=== PATIENT | female | born 1980 | race Caucasian/White ===

== ENCOUNTER → 2020-07-26 08:26 | Outpatient (CLI) | payer BC, SELFPAY ==
--- NOTE | 2020-07-26 | DI.MG.S_ITS ---
BILATERAL DIGITAL DIAGNOSTIC MAMMOGRAM 3D/2D: 07/26/2020 CLINICAL: Left breast pain. Comparison is made to exam dated: 02/17/2015 mammogram - [facility]. There are scattered fibroglandular elements in both breasts. There is a benign intramammary node in the left breast. No significant masses, calcifications, or other findings are seen in either breast. There has been no significant interval change. IMPRESSION: BENIGN There is no mammographic evidence of malignancy. A 2 year screening mammogram is recommended. This exam was interpreted at Station ID: [id number]. NOTE: For mammograms, a report in lay terms will be sent to the patient. Approximately 15% of breast malignancies will not be visualized mammographically. In the management of a palpable breast mass, a negative mammogram must not discourage biopsy of a clinically suspicious lesion. Electronically Signed By: Nahun Simon M.D., jr/nina:07/26/2020 09:34:15 letter sent: Normal Exam ACR BI-RADS Category 2: Benign Finding(s) 3342F
== END ==
PROVIDERS: PCP Family Medicine; Referring Provider Family Medicine; Visit Provider Family Medicine
DX: N64.4 Mastodynia (principal)
CPT/HCPCS: 77066; G0279

== ENCOUNTER 2021-03-30 12:45 | Outpatient (RCR) | payer BC, SELFPAY ==
--- NOTE | 2021-01-19 12:28 | PT.OIE ---
Current Diagnoses Stiffness of unspecified hip, not elsewhere classified (01/19/21) Muscle weakness (generalized) (01/19/21) Cystocele, unspecified (01/19/21) Female genital prolapse, unspecified (01/19/21) Unspecified urinary incontinence (01/19/21) Visit Care Team Role Provider Type Guanaco Chauhan MD Family Provider Non-Staff Primary Care Provider Specialty: Medical Address: [address] [place] [address], [id number] Email: Rianna Tam MD Attending Provider Physician Referring Provider Specialty: SENIOR OFFICE ASSISTANT Address: [address] [place] [address], [id number] Email: [email or web address] Physical Therapy Initial Evaluation PT-OP-A Visit Information Start: 01/11/21 17:54 Freq: Status: Active Protocol: Document 01/19/21 09:54 LRN (Rec: 01/19/21 11:00 LRN [id number]) Out-Patient Physical Therapy Visit Information Visit Information Visit Type Initial Evaluation Visit Start Time 09:54 Visit Stop Time 10:49 Total Visit Minutes 55 Visit Number 1 Evaluation Information Evaluation Date 01/19/21 Precautions Precautions Controlled HBP. 5'220#, BMI 36.6 (Obesity = BMI >29) Cough hypersensitivity disorder. PT-OP-B Current Condition Start: 01/11/21 17:54 Freq: Status: Active Protocol: Document 01/19/21 09:54 LRN (Rec: 01/19/21 11:00 LRN [id number]) Current Condition History of Current Condition Onset Date 9 yrs ago, referred to PT [address] Tam Current Complaints Urinary leakage History of Current Condition Pt having urinary leakage that worsens when her period starts, but she is on control medications and is no longer having periods; therefore leakage has normalized. If urinates, then can run immediately after for 10-15', but hasn't ran in 9 yrs. Walks now without leakage unless pulling dog back. Works at [employer]. If did everything she wanted to do, states she would leak probably 3-4x/day ( like run upstairs, play with daughter). Prior Treatments and Tests None. Developmental History Developmental History Pt has urinary leakage with coughing, lifting, strenuous activity, exercise (running, tennis, soccer, hasn't done in 9 yrs). Treatment Goals Patient/Caregiver Goals Pt goal with therapy is to be activity to play sport with her 9 yr old daughter (tennis, soccer). Reduce urinary leaking to less than a couple times a week due to cough hypersensitivity disorder. Eliminate urinary leakage due to dog pulling her at work, lifting dog into vehicle. 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 Baseline Function- Other Controlled HBP. 5#, BMI is 36.6 Leaked with coughing since of her daughter 9 yrs ago. 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 Functional Limitations- Recreation/ Strenuous activity (sports Hobbies with daughter) Personal Factors Other Personal Factors That May Effect . Leaked with coughing Therapy/Recovery since daughter's childbirth 9 yrs ago. 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 Leaked with coughing since of her daughter 9 yrs ago. Cough hypersensitivity disorder. BMI is 36.6 (>30, Obese) PT-OP-C Subjective Start: 01/11/21 17:54 Freq: Status: Active Protocol: Document 01/19/21 09:54 LRN (Rec: 01/22/21 09:58 LRN [id number]) Patient Questionnaires Pelvic Pain and Urgency/Frequency Patient Symptom Scale Pelvic Pain Score 14 PT-OP-I Pelvic Floor Start: 01/11/21 17:54 Freq: Status: Active Protocol: Document 01/19/21 09:54 LRN (Rec: 01/19/21 11:00 LRN [id number]) Pelvic Floor Assessment Urine Leakage Size Small Leakage Cause Cough,Exercise,Lifting Leaks Per Day 0-1 Nocturia 2 Pelvic Clock Pelvic Clock 12-3 Atrophy Pelvic Clock 3-6 Atrophy Prolapse Cystocele Grade 3 Urethrocele Grade 2 Rectocele Grade 2 Perineal Descent Resting Present Bearing Present Contraction Ability Voluntary Contraction Moderate Voluntary Relaxation Moderate Manual Muscle Testing Left 1 Manual Muscle Testing Right 3 Manual Muscle Testing Anterior 1 Manual Muscle Testing Posterior 3 Muscle Endurance (Seconds) 8 Number of Quick Contractions In 10 0 Seconds Comments Pelvic Floor Comments Sutured Pelvic floor for 15' after vaginal because she had bleeding. Thinks she was sewn crooked because she feels she has a dog ear. PT-OP-J Posture/Palpation/Skin Start: 01/11/21 17:54 Freq: Status: Active Protocol: Document 01/19/21 09:54 LRN (Rec: 01/19/21 11:00 LRN [id number]) Posture Evaluation Position Standing T-Spine Posture Flattened L-Spine Posture Increased Lordosis Scapula Posture (R) Elevated Arm Posture (L) Internally Rotated,(R) Internally Rotated Knee Posture (L) Genu Valgus,(R) Genu Valgus Comments Posture Comments BMI 36.6 PT-OP-K Range of Motion Start: 01/11/21 17:54 Freq: Status: Active Protocol: Document 01/19/21 09:54 LRN (Rec: 01/19/21 11:00 LRN [id number]) Lumbar Spine Range of Motion Lumbar Spine Active Percentage Testing Position Standing Comments Normal trunk mobility Hip Goniometric Range of Motion Hip Right Passive Testing Position Supine Internal Rotation 25 External Rotation 85 Left Passive Testing Position Supine Internal Rotation 10 External Rotation 90 PT-OP-M Strength Start: 01/11/21 17:54 Freq: Status: Active Protocol: Document 01/19/21 09:54 LRN (Rec: 01/19/21 11:00 LRN [id number]) Trunk Strength Trunk Manual Muscle Testing Core Stabilization Loss of core control with MMT of R hip flexor & arben hip AB & Ext (pelvis R rotates) Hip Strength Hip Manual Muscle Testing Right Comments Generally 5/5 Left Comments Generally 5/5 PT-OP-Q Treatments Start: 01/11/21 17:54 Freq: Status: Active Protocol: Document 01/19/21 09:54 LRN (Rec: 01/19/21 11:00 LRN [id number]) Self-Care/Home Management Treatment Education Patient Education Home Exercise Program Other Education Discussed evaluation results, goals & Plan of care. Activities Self-Care/Home Management Activities Issued & reviewed Bladder Diary to be completed over 1 week. Issued & reviewed Kegel exer program of Quick Flicks and long holds. PT-OP-T Assessment and Plan Start: 01/11/21 17:54 Freq: Status: Active Protocol: Document 01/19/21 09:54 LRN (Rec: 01/19/21 11:00 LRN [id number]) Physical Therapy Assessment Rehab Potential Rehabilitation Potential Good Evaluation Complexity Number of Personal Factors/Comorbidities 1-2 Number of Body Systems Impaired 4 or More Clinical Presentation at Evaluation Stable Impairments Impairments Activity Tolerance,ROM,Soft Tissue Mobility,Strength, Transfers Other Impairments Urinary stress incontinence. 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 STG Duration 02/09/21 Filter Tank Tender Helper Head Goal (LTG) No leakage with sudden movements in squatting position when moving dog patients. LTG Duration 04/19/21 Three Impairment Urinary leakage with lifting. Short Term Goal (STG) Increase PF strength of anterior and L wall to 3/5. STG Duration 02/23/21 Filter Tank Tender Helper Head Goal (LTG) Improve Long hold PF strength to 10 secs hold or no leakage with lifting of dogs into car. LTG Duration 04/19/21 Two Impairment Urinary leakage with coughing Short Term Goal (STG) Improve Quick Flick PF strength to 5x before fatigue STG Duration 02/23/21 Usp Goal (LTG) Improve Quick Flick PF strength (>5x before fatigue) or no leakage with controlled cough. LTG Duration 04/19/21 One Impairment HEP Short Term Goal (STG) Pt will be educated in proper abdominal care of Rectus abdominis and proper Kegel exercise. STG Duration 02/02/21 Filter Tank Tender Helper Head Goal (LTG) Pt independent in a self care HEP of PF and core strengthening and hip ROM exercises. LTG Duration 04/19/21 Assessment Summary Assessment Pt is a 40 yo female with urinary stress incontinence for the past 9 yrs since having her daughter via vaginal . The pt presents with a grade 3 cystocele & grade 2 rectocele. Her urinary stress incontinence has been exacerbated by her cough hypersensitivity disorder. She has PF weakness in her anterior and L lateral wall. She has core weakness exacerbated by her diastasis recti. Her hip mobility is asymmetrical, hindering her pelvic stability. Pt will benefit from skilled PT for education, core & pelvic stabilization, proper breathing techniques & body mechanics training for lifting & transfers, PF STM, hip ROM & education for diastasis recti care. Physical Therapy Plan Frequency and Duration Frequency of Treatment 1x/Week Plan of Care Start Date 01/19/21 Plan of Care End Date 04/19/21 Therapeutic Interventions Therapeutic Interventions Home Exercise Program,Manual Therapy,Patient/Caregiver Education,Self-Care/Home Management,Soft Tissue Mobilization,Therapeutic Activities,Therapeutic Exercises Modalities Biofeedback,Cold Pack/Ice Massage,Electric Stimulation, Hot Packs Next Visit Focus/Plan Next Note Type Treatment Note Next Visit Plan Stress Urinary Incontinence and DR/PF rehabilitation 9 yrs post vaginal . Review bladder diary to assess when pt leaking and for fluid dynamics and review Kegel. Deep breathing and w/transfer training, Core strengthening, TA ex's and DR protection. R hip ER/L hip IR stretching.
--- NOTE | 2021-01-19 12:29 | PT.OPPOC ---
Physical, Occupational & Speech Therapy At [facility] Current Diagnoses Stiffness of unspecified hip, not elsewhere classified (01/19/21) Muscle weakness (generalized) (01/19/21) Cystocele, unspecified (01/19/21) Female genital prolapse, unspecified (01/19/21) Unspecified urinary incontinence (01/19/21) Visit Care Team Role Provider Type Guanaco Chauhan MD Family Provider Non-Staff Primary Care Provider Specialty: Medical Address: [address] [place] [address], [id number] Email: Rianna Tam MD Attending Provider Physician Referring Provider Specialty: HEEL FORMER Address: [address] [place] [address], [address] Email: [email or web address] Plan Of Care PT-OP-T Assessment and Plan Start: 01/11/21 17:54 Freq: Status: Active Protocol: Document 01/19/21 09:54 LRN (Rec: 01/19/21 11:00 LRN [id number]) Physical Therapy Assessment Rehab Potential Rehabilitation Potential Good Evaluation Complexity Number of Personal Factors/Comorbidities 1-2 Number of Body Systems Impaired 4 or More Clinical Presentation at Evaluation Stable Impairments Impairments Activity Tolerance,ROM,Soft Tissue Mobility,Strength, Transfers Other Impairments Urinary stress incontinence. 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 STG Duration 02/09/21 Skilled Nursing Goal (LTG) No leakage with sudden movements in squatting position when moving dog patients. LTG Duration 04/19/21 Three Impairment Urinary leakage with lifting. Short Term Goal (STG) Increase PF strength of anterior and L wall to 3/5. STG Duration 02/23/21 Claim Taker Goal (LTG) Improve Long hold PF strength to 10 secs hold or no leakage with lifting of dogs into car. LTG Duration 04/19/21 Two Impairment Urinary leakage with coughing Short Term Goal (STG) Improve Quick Flick PF strength to 5x before fatigue STG Duration 02/23/21 Skilled Nursing Goal (LTG) Improve Quick Flick PF strength (>5x before fatigue) or no leakage with controlled cough. LTG Duration 04/19/21 One Impairment HEP Short Term Goal (STG) Pt will be educated in proper abdominal care of Rectus abdominis and proper Kegel exercise. STG Duration 02/02/21 Skilled Nursing Goal (LTG) Pt independent in a self care HEP of PF and core strengthening and hip ROM exercises. LTG Duration 04/19/21 Assessment Summary Assessment Pt is a 40 yo female with urinary stress incontinence for the past 9 yrs since having her daughter via vaginal . The pt presents with a grade 3 cystocele & grade 2 rectocele. Her urinary stress incontinence has been exacerbated by her cough hypersensitivity disorder. She has PF weakness in her anterior and L lateral wall. She has core weakness exacerbated by her diastasis recti. Her hip mobility is asymmetrical, hindering her pelvic stability. Pt will benefit from skilled PT for education, core & pelvic stabilization, proper breathing techniques & body mechanics training for lifting & transfers, PF STM, hip ROM & education for diastasis recti care. Physical Therapy Plan Frequency and Duration Frequency of Treatment 1x/Week Plan of Care Start Date 01/19/21 Plan of Care End Date 04/19/21 Therapeutic Interventions Therapeutic Interventions Home Exercise Program,Manual Therapy,Patient/Caregiver Education,Self-Care/Home Management,Soft Tissue Mobilization,Therapeutic Activities,Therapeutic Exercises Modalities Biofeedback,Cold Pack/Ice Massage,Electric Stimulation, Hot Packs Next Visit Focus/Plan Next Note Type Treatment Note Next Visit Plan Stress Urinary Incontinence and DR/PF rehabilitation 9 yrs post vaginal . Review bladder diary to assess when pt leaking and for fluid dynamics and review Kegel. Deep breathing and w/transfer training, Core strengthening, TA ex's and DR protection. R hip ER/L hip IR stretching. Plan of Care Dates Plan of Care Start Date 01/19/21 Plan of Care End Date 04/19/21 Electronically Signed by: Pushpa Kay, PT 01/22/21 [id number] Please Sign and Return: I have reviewed this Plan of Care and certify that the skilled therapy services above are required to meet the patient?s needs. Physician Signature Date Printed Name and Credentials Clinical Instructor Signature Printed Name and Credentials
--- NOTE | 2021-02-02 16:53 | PT.OTN ---
Current Diagnoses Stiffness of unspecified hip, not elsewhere classified (02/02/21) Muscle weakness (generalized) (02/02/21) Cystocele, unspecified (02/02/21) Female genital prolapse, unspecified (02/02/21) Unspecified urinary incontinence (02/02/21) Physical Therapy Treatment Note PT-OP-A Visit Information Start: 01/11/21 17:54 Freq: Status: Active Protocol: Document 02/02/21 10:36 LRN (Rec: 02/02/21 12:27 LRN [id number]) Out-Patient Physical Therapy Visit Information Visit Information Visit Type Treatment Note Visit Start Time 10:36 Visit Stop Time 11:16 Total Visit Minutes 40 Visit Number 2 Evaluation Information Evaluation Date 01/19/21 Precautions Precautions Controlled HBP. 5'220#, BMI 36.6 (Obesity = BMI >29) Cough hypersensitivity disorder. PT-OP-B Current Condition Start: 01/11/21 17:54 Freq: Status: Active Protocol: Document 01/19/21 09:54 LRN (Rec: 01/19/21 11:00 LRN [id number]) Current Condition History of Current Condition Onset Date 9 yrs ago, referred to PT [address] Tam Current Complaints Urinary leakage History of Current Condition Pt having urinary leakage that worsens when her period starts, but she is on control medications and is no longer having periods; therefore leakage has normalized. If urinates, then can run immediately after for 10-15', but hasn't ran in 9 yrs. Walks now without leakage unless pulling dog back. Works at [employer]. If did everything she wanted to do, states she would leak probably 3-4x/day ( like run upstairs, play with daughter). Prior Treatments and Tests None. Developmental History Developmental History Pt has urinary leakage with coughing, lifting, strenuous activity, exercise (running, tennis, soccer, hasn't done in 9 yrs). Treatment Goals Patient/Caregiver Goals Pt goal with therapy is to be activity to play sport with her 9 yr old daughter (tennis, soccer). Reduce urinary leaking to less than a couple times a week due to cough hypersensitivity disorder. Eliminate urinary leakage due to dog pulling her at work, lifting dog into vehicle. 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 Baseline Function- Other Controlled HBP. 5'#, BMI is 36.6 Leaked with coughing since of her daughter 9 yrs ago. 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 Functional Limitations- Recreation/ Strenuous activity (sports Hobbies with daughter) Personal Factors Other Personal Factors That May Effect . Leaked with coughing Therapy/Recovery since daughter's childbirth 9 yrs ago. 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 Leaked with coughing since of her daughter 9 yrs ago. Cough hypersensitivity disorder. BMI is 36.6 (>30, Obese) PT-OP-C Subjective Start: 01/11/21 17:54 Freq: Status: Active Protocol: Document 02/02/21 10:36 LRN (Rec: 02/02/21 12:27 LRN [id number]) OP-PT Subjective Patient Comments Patient Comments Forgot bladder diary. States she urinates for most of the time 7 secs, 6x/day on avg (3x at work = every 3 hrs, 2x at home and before bed). Thinks drinks 64 oz at work ( urinating 3x), Pees more after drinking Coke. Urinates more if anxious or when on period. Weighs #220. PT-OP-I Pelvic Floor Start: 01/11/21 17:54 Freq: Status: Active Protocol: Document 01/19/21 09:54 LRN (Rec: 01/19/21 11:00 LRN [id number]) Pelvic Floor Assessment Urine Leakage Size Small Leakage Cause Cough,Exercise,Lifting Leaks Per Day 0-1 Nocturia 2 Pelvic Clock Pelvic Clock 12-3 Atrophy Pelvic Clock 3-6 Atrophy Prolapse Cystocele Grade 3 Urethrocele Grade 2 Rectocele Grade 2 Perineal Descent Resting Present Bearing Present Contraction Ability Voluntary Contraction Moderate Voluntary Relaxation Moderate Manual Muscle Testing Left 1 Manual Muscle Testing Right 3 Manual Muscle Testing Anterior 1 Manual Muscle Testing Posterior 3 Muscle Endurance (Seconds) 8 Number of Quick Contractions In 10 0 Seconds Comments Pelvic Floor Comments Sutured Pelvic floor for 15' after vaginal because she had bleeding. Thinks she was sewn crooked because she feels she has a dog ear. PT-OP-J Posture/Palpation/Skin Start: 01/11/21 17:54 Freq: Status: Active Protocol: Document 01/19/21 09:54 LRN (Rec: 01/19/21 11:00 LRN [id number]) Posture Evaluation Position Standing T-Spine Posture Flattened L-Spine Posture Increased Lordosis Scapula Posture (R) Elevated Arm Posture (L) Internally Rotated,(R) Internally Rotated Knee Posture (L) Genu Valgus,(R) Genu Valgus Comments Posture Comments BMI 36.6 PT-OP-K Range of Motion Start: 01/11/21 17:54 Freq: Status: Active Protocol: Document 01/19/21 09:54 LRN (Rec: 01/19/21 11:00 LRN [id number]) Lumbar Spine Range of Motion Lumbar Spine Active Percentage Testing Position Standing Comments Normal trunk mobility Hip Goniometric Range of Motion Hip Right Passive Testing Position Supine Internal Rotation 25 External Rotation 85 Left Passive Testing Position Supine Internal Rotation 10 External Rotation 90 PT-OP-M Strength Start: 01/11/21 17:54 Freq: Status: Active Protocol: Document 01/19/21 09:54 LRN (Rec: 01/19/21 11:00 LRN [id number]) Trunk Strength Trunk Manual Muscle Testing Core Stabilization Loss of core control with MMT of R hip flexor & arben hip AB & Ext (pelvis R rotates) Hip Strength Hip Manual Muscle Testing Right Comments Generally 5/5 Left Comments Generally 5/5 PT-OP-Q Treatments Start: 01/11/21 17:54 Freq: Status: Active Protocol: Document 02/02/21 10:36 LRN (Rec: 02/02/21 12:27 LRN [id number]) Therapeutic Exercises Supine Exercises TA tightening Supine Exercise Name TA tightening Reps/Minutes 10' Breathing with TA tight Supine Exercise Name Awareness training of breathing with TA tightening Reps/Minutes 6' Deep Breathing Supine Exercise Name Deep Breathing Reps/Minutes 3' Self-Care/Home Management Treatment Education Patient Education Body Mechanics,Home Exercise Program,Posture Other Education Reviewed and discussed at length pt's recall of her bladder diary results. Discussed Food & Beverage Bladder Irritants, with suggestions of drinks with less caffeine and differences in teas. Educated pt in pelvic anatomy with model and handout. Educated pt in effects of deep breathing and effects on bladder with different arm positions. Activities Self-Care/Home Management Activities Issued (& reviewed as above): Bladder Irritant list, pelvic anatomy, diaphragmatic breathing, abdominal tightening per lower abdominal progression. 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 STG Duration 02/09/21 Veneer Jointer Offbearer Goal (LTG) No leakage with sudden movements in squatting position when moving dog patients. LTG Duration 04/19/21 Three Impairment Urinary leakage with lifting. Short Term Goal (STG) Increase PF strength of anterior and L wall to 3/5. STG Duration 02/23/21 Alf Goal (LTG) Improve Long hold PF strength to 10 secs hold or no leakage with lifting of dogs into car. LTG Duration 04/19/21 Two Impairment Urinary leakage with coughing Short Term Goal (STG) Improve Quick Flick PF strength to 5x before fatigue STG Duration 02/23/21 Veneer Jointer Offbearer Goal (LTG) Improve Quick Flick PF strength (>5x before fatigue) or no leakage with controlled cough. LTG Duration 04/19/21 One Impairment HEP Short Term Goal (STG) Pt will be educated in proper abdominal care of Rectus abdominis and proper Kegel exercise. STG Duration 02/02/21 Alf Goal (LTG) Pt independent in a self care HEP of PF and core strengthening and hip ROM exercises. LTG Duration 04/19/21 (02/02/21: Progressed) Progress Towards Goals Progress Comments Progressed HEP Assessment Summary Assessment Per pt description, she leaks with aggravator action vs just crossing her legs to prevent leakage; therefore probably having PF contraction coordination problem. Pt has poor TA control and is unable to maintain core stability ( TA contraction) while breathing. Pt urination times appear normal (7-8 secs), her time between voids is in normal range (every 3 hours), except after drinking Coke. Pt primary problem appears to be weakness and prolapse with stress urinary incontinence. Physical Therapy Plan Frequency and Duration Frequency of Treatment 1x/Week Plan of Care Start Date 01/19/21 Plan of Care End Date 04/19/21 Next Visit Focus/Plan Next Note Type Treatment Note Next Visit Plan Stress Urinary Incontinence and DR/PF rehabilitation 9 yrs post vaginal . Review Kegel & TA awareness. K-tape of DR and teach DR protection with transfers. Deep breathing w/transfer training , Core, PF & TA strengthening, & DR protection. R hip ER/L hip IR stretching.
--- NOTE | 2021-02-09 16:46 | PT.OTN ---
Current Diagnoses Stiffness of unspecified hip, not elsewhere classified (02/09/21) Muscle weakness (generalized) (02/09/21) Cystocele, unspecified (02/09/21) Female genital prolapse, unspecified (02/09/21) Unspecified urinary incontinence (02/09/21) Physical Therapy Treatment Note PT-OP-A Visit Information Start: 01/11/21 17:54 Freq: Status: Active Protocol: Document 02/09/21 10:41 LRN (Rec: 02/09/21 11:19 LRN [id number]) Out-Patient Physical Therapy Visit Information Visit Information Visit Type Treatment Note Visit Start Time 10:41 Visit Stop Time 11:19 Total Visit Minutes 39 Visit Number 3 Evaluation Information Evaluation Date 01/19/21 Precautions Precautions Controlled HBP. 5'#, BMI 36.6 (Obesity = BMI >29) Cough hypersensitivity disorder. PT-OP-B Current Condition Start: 01/11/21 17:54 Freq: Status: Active Protocol: Document 01/19/21 09:54 LRN (Rec: 01/19/21 11:00 LRN [id number]) Current Condition History of Current Condition Onset Date 9 yrs ago, referred to PT [address] Tam Current Complaints Urinary leakage History of Current Condition Pt having urinary leakage that worsens when her period starts, but she is on control medications and is no longer having periods; therefore leakage has normalized. If urinates, then can run immediately after for 10-15', but hasn't ran in 9 yrs. Walks now without leakage unless pulling dog back. Works at [employer]. If did everything she wanted to do, states she would leak probably 3-4x/day ( like run upstairs, play with daughter). Prior Treatments and Tests None. Developmental History Developmental History Pt has urinary leakage with coughing, lifting, strenuous activity, exercise (running, tennis, soccer, hasn't done in 9 yrs). Treatment Goals Patient/Caregiver Goals Pt goal with therapy is to be activity to play sport with her 9 yr old daughter (tennis, soccer). Reduce urinary leaking to less than a couple times a week due to cough hypersensitivity disorder. Eliminate urinary leakage due to dog pulling her at work, lifting dog into vehicle. 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 Baseline Function- Other Controlled HBP. #, BMI is 36.6 Leaked with coughing since of her daughter 9 yrs ago. 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 Functional Limitations- Recreation/ Strenuous activity (sports Hobbies with daughter) Personal Factors Other Personal Factors That May Effect . Leaked with coughing Therapy/Recovery since daughter's childbirth 9 yrs ago. 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 Leaked with coughing since of her daughter 9 yrs ago. Cough hypersensitivity disorder. BMI is 36.6 (>30, Obese) PT-OP-C Subjective Start: 01/11/21 17:54 Freq: Status: Active Protocol: Document 02/09/21 10:41 LRN (Rec: 02/09/21 11:19 LRN [id number]) OP-PT Subjective Patient Comments Patient Comments States she had an episode a few days ago when she straddled a dog and did not leak, but yesterday she was doing something and leaked. Yesterday was low on water consumption. This morning walking downhill leaked less because she was aggravator lily. PT-OP-I Pelvic Floor Start: 01/11/21 17:54 Freq: Status: Active Protocol: Document 01/19/21 09:54 LRN (Rec: 01/19/21 11:00 LRN [id number]) Pelvic Floor Assessment Urine Leakage Size Small Leakage Cause Cough,Exercise,Lifting Leaks Per Day 0-1 Nocturia 2 Pelvic Clock Pelvic Clock 12-3 Atrophy Pelvic Clock 3-6 Atrophy Prolapse Cystocele Grade 3 Urethrocele Grade 2 Rectocele Grade 2 Perineal Descent Resting Present Bearing Present Contraction Ability Voluntary Contraction Moderate Voluntary Relaxation Moderate Manual Muscle Testing Left 1 Manual Muscle Testing Right 3 Manual Muscle Testing Anterior 1 Manual Muscle Testing Posterior 3 Muscle Endurance (Seconds) 8 Number of Quick Contractions In 10 0 Seconds Comments Pelvic Floor Comments Sutured Pelvic floor for 15' after vaginal because she had bleeding. Thinks she was sewn crooked because she feels she has a dog ear. PT-OP-J Posture/Palpation/Skin Start: 01/11/21 17:54 Freq: Status: Active Protocol: Document 01/19/21 09:54 LRN (Rec: 01/19/21 11:00 LRN [id number]) Posture Evaluation Position Standing T-Spine Posture Flattened L-Spine Posture Increased Lordosis Scapula Posture (R) Elevated Arm Posture (L) Internally Rotated,(R) Internally Rotated Knee Posture (L) Genu Valgus,(R) Genu Valgus Comments Posture Comments BMI 36.6 PT-OP-K Range of Motion Start: 01/11/21 17:54 Freq: Status: Active Protocol: Document 01/19/21 09:54 LRN (Rec: 01/19/21 11:00 LRN [id number]) Lumbar Spine Range of Motion Lumbar Spine Active Percentage Testing Position Standing Comments Normal trunk mobility Hip Goniometric Range of Motion Hip Right Passive Testing Position Supine Internal Rotation 25 External Rotation 85 Left Passive Testing Position Supine Internal Rotation 10 External Rotation 90 PT-OP-M Strength Start: 01/11/21 17:54 Freq: Status: Active Protocol: Document 01/19/21 09:54 LRN (Rec: 01/19/21 11:00 LRN [id number]) Trunk Strength Trunk Manual Muscle Testing Core Stabilization Loss of core control with MMT of R hip flexor & arben hip AB & Ext (pelvis R rotates) Hip Strength Hip Manual Muscle Testing Right Comments Generally 5/5 Left Comments Generally 5/5 PT-OP-Q Treatments Start: 01/11/21 17:54 Freq: Status: Active Protocol: Document 02/09/21 10:41 LRN (Rec: 02/09/21 11:19 LRN [id number]) Therapeutic Exercises Supine Exercises LE Roll in/out Supine Exercise Name LE Roll in/out w/deep breathing and I/S in PF contraction Reps/Minutes 6' Upper thoracic TA Supine Exercise Name Upper TA Reps/Minutes 5' TA tightening Supine Exercise Name TA tightening lower Reps/Minutes 3' Therapeutic Activity Therapeutic Activity Transfers w/coordinated breathing Name Stand<>Sit<>Supine with coordinated breathing Reps/Minutes 8' Manual Therapy Treatment Soft Tissue Mobilization Abdomen Body Location Abdomen Mobilization Type Other Comments Mobilization of rectus, urachus, bladder Self-Care/Home Management Treatment Activities Self-Care/Home Management Activities Pt I/S: TA with focus on improving upper TA and hold time of lower TA; coordinated breathwork for transfers and LE roll in/outs, and Cont Kegels. Issued & reviewed LE Roll in/ outs without TB/Ball. 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 STG Duration 02/09/21 Detail Technician Goal (LTG) No leakage with sudden movements in squatting position when moving dog patients. (02/09/21: Occurred x 1) LTG Duration 04/19/21 (02/09/21: Progressing) Three Impairment Urinary leakage with lifting. Short Term Goal (STG) Increase PF strength of anterior and L wall to 3/5. STG Duration 02/23/21 Jail Goal (LTG) Improve Long hold PF strength to 10 secs hold or no leakage with lifting of dogs into car. LTG Duration 04/19/21 Two Impairment Urinary leakage with coughing Short Term Goal (STG) Improve Quick Flick PF strength to 5x before fatigue STG Duration 02/23/21 Jail Goal (LTG) Improve Quick Flick PF strength (>5x before fatigue) or no leakage with controlled cough. LTG Duration 04/19/21 One Impairment HEP Short Term Goal (STG) Pt will be educated in proper abdominal care of Rectus abdominis and proper Kegel exercise. (02/09/21: Educated pt in care of DR) STG Duration 02/02/21 (02/09/21: Progressed ) Detail Technician Goal (LTG) Pt independent in a self care HEP of PF and core strengthening and hip ROM exercises. (02/09/21: Added LE roll in/ out ex) LTG Duration 04/19/21 (02/09/21: Progressed) Progress Towards Goals Progress Comments Progressed self care program Goal #1. Progressing LTG #4. Assessment Summary Assessment Pt DR in upper thoracic region . Pt able to perform a TA contraction in upper thoracic region breath holding. Improved ability to hold TA during a couple shallow breaths. Pt appears to have a good understanding of proper breath with transfers, but review needed. Still normal urination times (7-8 secs) and time between voids (every 3 hours). Pt with PF weakness and prolapse with stress urinary incontinence. Pt responds well to manual mobilization. Physical Therapy Plan Frequency and Duration Frequency of Treatment 1x/Week Plan of Care Start Date 01/19/21 Plan of Care End Date 04/19/21 Next Visit Focus/Plan Next Note Type Treatment Note Next Visit Plan Stress Urinary Incontinence and DR/PF rehabilitation 9 yrs post vaginal . Review Kegel & TA awareness. Try K- tape of DR to facilitate TA tightening. Review coordination of breathing with transfers. Core, PF & TA strengthening, & monitor for DR protection. R hip ER/L hip IR stretching.
--- NOTE | 2021-02-12 11:32 | PT-OP ANOTE ---
Pt DNS. Msg left notifying pt and informing her of her next appt.
--- NOTE | 2021-02-23 11:43 | PT.OTN ---
Current Diagnoses Stiffness of unspecified hip, not elsewhere classified (02/23/21) Muscle weakness (generalized) (02/23/21) Cystocele, unspecified (02/23/21) Female genital prolapse, unspecified (02/23/21) Unspecified urinary incontinence (02/23/21) Physical Therapy Treatment Note PT-OP-A Visit Information Start: 01/11/21 17:54 Freq: Status: Active Protocol: Document 02/23/21 10:36 LRN (Rec: 02/23/21 11:42 LRN [id number]) Out-Patient Physical Therapy Visit Information Visit Information Visit Type Treatment Note Visit Start Time 10:37 Visit Stop Time 11:17 Total Visit Minutes 40 Visit Number 4 Evaluation Information Evaluation Date 01/19/21 Precautions Precautions Controlled HBP. 5'#, BMI 36.6 (Obesity = BMI >29) Cough hypersensitivity disorder. PT-OP-B Current Condition Start: 01/11/21 17:54 Freq: Status: Active Protocol: Document 01/19/21 09:54 LRN (Rec: 01/19/21 11:00 LRN [id number]) Current Condition History of Current Condition Onset Date 9 yrs ago, referred to PT [address] Tam Current Complaints Urinary leakage History of Current Condition Pt having urinary leakage that worsens when her period starts, but she is on control medications and is no longer having periods; therefore leakage has normalized. If urinates, then can run immediately after for 10-15', but hasn't ran in 9 yrs. Walks now without leakage unless pulling dog back. Works at [employer]. If did everything she wanted to do, states she would leak probably 3-4x/day ( like run upstairs, play with daughter). Prior Treatments and Tests None. Developmental History Developmental History Pt has urinary leakage with coughing, lifting, strenuous activity, exercise (running, tennis, soccer, hasn't done in 9 yrs). Treatment Goals Patient/Caregiver Goals Pt goal with therapy is to be activity to play sport with her 9 yr old daughter (tennis, soccer). Reduce urinary leaking to less than a couple times a week due to cough hypersensitivity disorder. Eliminate urinary leakage due to dog pulling her at work, lifting dog into vehicle. 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 Baseline Function- Other Controlled HBP. 5#, BMI is 36.6 Leaked with coughing since of her daughter 9 yrs ago. 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 Functional Limitations- Recreation/ Strenuous activity (sports Hobbies with daughter) Personal Factors Other Personal Factors That May Effect . Leaked with coughing Therapy/Recovery since daughter's childbirth 9 yrs ago. 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 Leaked with coughing since of her daughter 9 yrs ago. Cough hypersensitivity disorder. BMI is 36.6 (>30, Obese) PT-OP-C Subjective Start: 01/11/21 17:54 Freq: Status: Active Protocol: Document 02/23/21 10:36 LRN (Rec: 02/23/21 11:42 LRN [id number]) OP-PT Subjective Patient Comments Patient Comments Picked up 9 yr old and felt trunk corset. Able to squat more without leakage. Less leakage with premeditated movements, still leaking with quick, unexpected or jarring activities. Patient Reported Progress Improving PT-OP-I Pelvic Floor Start: 01/11/21 17:54 Freq: Status: Active Protocol: Document 01/19/21 09:54 LRN (Rec: 01/19/21 11:00 LRN [id number]) Pelvic Floor Assessment Urine Leakage Size Small Leakage Cause Cough,Exercise,Lifting Leaks Per Day 0-1 Nocturia 2 Pelvic Clock Pelvic Clock 12-3 Atrophy Pelvic Clock 3-6 Atrophy Prolapse Cystocele Grade 3 Urethrocele Grade 2 Rectocele Grade 2 Perineal Descent Resting Present Bearing Present Contraction Ability Voluntary Contraction Moderate Voluntary Relaxation Moderate Manual Muscle Testing Left 1 Manual Muscle Testing Right 3 Manual Muscle Testing Anterior 1 Manual Muscle Testing Posterior 3 Muscle Endurance (Seconds) 8 Number of Quick Contractions In 10 0 Seconds Comments Pelvic Floor Comments Sutured Pelvic floor for 15' after vaginal because she had bleeding. Thinks she was sewn crooked because she feels she has a dog ear. PT-OP-J Posture/Palpation/Skin Start: 01/11/21 17:54 Freq: Status: Active Protocol: Document 01/19/21 09:54 LRN (Rec: 01/19/21 11:00 LRN [id number]) Posture Evaluation Position Standing T-Spine Posture Flattened L-Spine Posture Increased Lordosis Scapula Posture (R) Elevated Arm Posture (L) Internally Rotated,(R) Internally Rotated Knee Posture (L) Genu Valgus,(R) Genu Valgus Comments Posture Comments BMI 36.6 PT-OP-K Range of Motion Start: 01/11/21 17:54 Freq: Status: Active Protocol: Document 01/19/21 09:54 LRN (Rec: 01/19/21 11:00 LRN [id number]) Lumbar Spine Range of Motion Lumbar Spine Active Percentage Testing Position Standing Comments Normal trunk mobility Hip Goniometric Range of Motion Hip Right Passive Testing Position Supine Internal Rotation 25 External Rotation 85 Left Passive Testing Position Supine Internal Rotation 10 External Rotation 90 PT-OP-M Strength Start: 01/11/21 17:54 Freq: Status: Active Protocol: Document 01/19/21 09:54 LRN (Rec: 01/19/21 11:00 LRN [id number]) Trunk Strength Trunk Manual Muscle Testing Core Stabilization Loss of core control with MMT of R hip flexor & wesley hip AB & Ext (pelvis R rotates) Hip Strength Hip Manual Muscle Testing Right Comments Generally 5/5 Left Comments Generally 5/5 PT-OP-Q Treatments Start: 01/11/21 17:54 Freq: Status: Active Protocol: Document 02/23/21 10:36 LRN (Rec: 02/23/21 11:42 LRN [id number]) Therapeutic Exercises Supine Exercises Piriformis stretch Supine Exercise Name Knee to opposite shoulder Side left Reps/Minutes 3' Comments Phys cuing needed. Hip ER stretch Supine Exercise Name Fig 4 stretch Side left Reps/Minutes 3' Comments Pt found to have excessive L rot of pelvis presenting R< L in ROM. PF contraction coordinated with TA Supine Exercise Name PF contraction coordinated with TA Reps/Minutes 3' Comments Phys cuing/training needed Pec stretch on 1/2 roll Supine Exercise Name Pec stretch on 1/2 roll in varying positions Reps/Minutes 5' Comments Phys & v cuining for protection of shoulders and different positioning TA tightening Supine Exercise Name TA tightening lower Reps/Minutes 1' Breathing with TA tight Supine Exercise Name Training of breathing with TA tightening with phys stim Reps/Minutes 10' Sitting Exercises Hip ER stretch Sitting Exercise Name Ankle crossed over knee, L>R Side bilateral Reps/Minutes 2' Comments I/S and phys cuing needed Self-Care/Home Management Treatment Education Patient Education Home Exercise Program,Posture Other Education Discussed/education in postural awareness of opening upper chest & relaxing shoulders, Discussed/education in physiological changes during menstration and effects on continence during period. Reviewed Plan of care for progress towards goals. Education/awareness/ practice in breathing with transfers with canister analogy. Activities Self-Care/Home Management Activities Issued & reviewed HEP: Wesley Hip flexor stretch, L>R: fig 4 & Piriformis stretch. 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 (02/23/21: Leaking 1x/day ). 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 (02/23/21: Occurred x 1 and notices less onset with squatting, but leaks noticeably more with period) LTG Duration 04/19/21 (02/23/21: Progressing) Three Impairment Urinary leakage with lifting. Short Term Goal (STG) Increase PF strength of anterior and L wall to 3/5. STG Duration 02/23/21 Tag Machine Operator Goal (LTG) Improve Long hold PF strength to 10 secs hold or no leakage with lifting of dogs into car. (02/23/21: Leaks when having period, otherwise doesn't). LTG Duration 04/19/21 (02/23/21: Improved) Two Impairment Urinary leakage with coughing Short Term Goal (STG) Improve Quick Flick PF strength to 5x before fatigue STG Duration 02/23/21 Usp Goal (LTG) Improve Quick Flick PF strength (>5x before fatigue) or no leakage with controlled cough. LTG Duration 04/19/21 One Impairment HEP Short Term Goal (STG) Pt will be educated in proper abdominal care of Rectus abdominis and proper Kegel exercise. (02/09/21: Educated pt in care of DR 02/23/21: Pt able to do Kegel with improved coordination with TA) STG Duration 02/02/21 (02/23/21: MET GOAL) Tag Machine Operator Goal (LTG) Pt independent in a self care HEP of PF and core strengthening and hip ROM exercises. (02/23/21: Added LE hip rotation stretches ) LTG Duration 04/19/21 (02/23/21: Progressed ) Assessment Summary Assessment Pt able to mostly hold TA with breathing after much training . She showed improved coordination of PF contraction with TA tightened, although visibly TA was not able to maintain hold. Pt L hip ER appears more resticted in mobility than R due to compensation of pelvis rotation L with Fig 4 stretch. 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 She is leaking with onset and during her period, therefore further strengthening is needed. Physical Therapy Plan Frequency and Duration Frequency of Treatment 1x/Week Plan of Care Start Date 01/19/21 Plan of Care End Date 04/19/21 Next Visit Focus/Plan Next Note Type Treatment Note Next Visit Plan Review L hip stretches issued and add lateral hip stretch (L >R). Recheck hip ER/IR ROM by next 2 visits. Stress Urinary Incontinence and DR/PF rehabilitation 9 yrs post vaginal . Recheck L and anterior PF strength. Try K- tape of DR to facilitate TA tightening. Core, PF & TA strengthening, & monitor for DR protection.
--- NOTE | 2021-03-02 16:30 | PT.OTN ---
Current Diagnoses Stiffness of unspecified hip, not elsewhere classified (03/02/21) Muscle weakness (generalized) (03/02/21) Cystocele, unspecified (03/02/21) Female genital prolapse, unspecified (03/02/21) Unspecified urinary incontinence (03/02/21) Physical Therapy Treatment Note PT-OP-A Visit Information Start: 01/11/21 17:54 Freq: Status: Active Protocol: Document 03/02/21 12:46 LRN (Rec: 03/02/21 13:33 LRN [id number]) Out-Patient Physical Therapy Visit Information Visit Information Visit Type Treatment Note Visit Start Time 12:46 Visit Stop Time 13:27 Total Visit Minutes 41 Visit Number 5 Evaluation Information Evaluation Date 01/19/21 Precautions Precautions Controlled HBP. 5'#, BMI 36.6 (Obesity = BMI >29) Cough hypersensitivity disorder. PT-OP-B Current Condition Start: 01/11/21 17:54 Freq: Status: Active Protocol: Document 01/19/21 09:54 LRN (Rec: 01/19/21 11:00 LRN [id number]) Current Condition History of Current Condition Onset Date 9 yrs ago, referred to PT [address] Tam Current Complaints Urinary leakage History of Current Condition Pt having urinary leakage that worsens when her period starts, but she is on control medications and is no longer having periods; therefore leakage has normalized. If urinates, then can run immediately after for 10-15', but hasn't ran in 9 yrs. Walks now without leakage unless pulling dog back. Works at [employer]. If did everything she wanted to do, states she would leak probably 3-4x/day ( like run upstairs, play with daughter). Prior Treatments and Tests None. Developmental History Developmental History Pt has urinary leakage with coughing, lifting, strenuous activity, exercise (running, tennis, soccer, hasn't done in 9 yrs). Treatment Goals Patient/Caregiver Goals Pt goal with therapy is to be activity to play sport with her 9 yr old daughter (tennis, soccer). Reduce urinary leaking to less than a couple times a week due to cough hypersensitivity disorder. Eliminate urinary leakage due to dog pulling her at work, lifting dog into vehicle. 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 Baseline Function- Other Controlled HBP. 5#, BMI is 36.6 Leaked with coughing since of her daughter 9 yrs ago. 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 Functional Limitations- Recreation/ Strenuous activity (sports Hobbies with daughter) Personal Factors Other Personal Factors That May Effect . Leaked with coughing Therapy/Recovery since daughter's childbirth 9 yrs ago. 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 Leaked with coughing since of her daughter 9 yrs ago. Cough hypersensitivity disorder. BMI is 36.6 (>30, Obese) PT-OP-C Subjective Start: 01/11/21 17:54 Freq: Status: Active Protocol: Document 03/02/21 12:46 LRN (Rec: 03/02/21 13:33 LRN [id number]) OP-PT Subjective Patient Comments Patient Comments Hasn't been as good as she has been. Leaking more, may be hormone cycle and not as much ex. PT-OP-I Pelvic Floor Start: 01/11/21 17:54 Freq: Status: Active Protocol: Document 03/02/21 12:46 LRN (Rec: 03/02/21 16:29 LRN [id number]) Pelvic Floor Assessment Comments Pelvic Floor Comments DR: Above umbilicus 3-5 : 1.5 finger widths Above umbilicus 1-2 : 2.5 finger widths Below umbilicus 1-2: 1.5 finger widths Below unmbilicus 3: 1 finger widths PT-OP-J Posture/Palpation/Skin Start: 01/11/21 17:54 Freq: Status: Active Protocol: Document 01/19/21 09:54 LRN (Rec: 01/19/21 11:00 LRN [id number]) Posture Evaluation Position Standing T-Spine Posture Flattened L-Spine Posture Increased Lordosis Scapula Posture (R) Elevated Arm Posture (L) Internally Rotated,(R) Internally Rotated Knee Posture (L) Genu Valgus,(R) Genu Valgus Comments Posture Comments BMI 36.6 PT-OP-K Range of Motion Start: 01/11/21 17:54 Freq: Status: Active Protocol: Document 03/02/21 12:46 LRN (Rec: 03/02/21 13:33 LRN [id number]) Hip Goniometric Range of Motion Hip Right Passive Testing Position Supine Internal Rotation 25 External Rotation 85 Left Passive Testing Position Supine Internal Rotation 20 External Rotation 90 PT-OP-M Strength Start: 01/11/21 17:54 Freq: Status: Active Protocol: Document 01/19/21 09:54 LRN (Rec: 01/19/21 11:00 LRN [id number]) Trunk Strength Trunk Manual Muscle Testing Core Stabilization Loss of core control with MMT of R hip flexor & arben hip AB & Ext (pelvis R rotates) Hip Strength Hip Manual Muscle Testing Right Comments Generally 5/5 Left Comments Generally 5/5 PT-OP-Q Treatments Start: 01/11/21 17:54 Freq: Status: Active Protocol: Document 03/02/21 12:46 LRN (Rec: 03/02/21 13:33 LRN [id number]) Therapeutic Exercises Supine Exercises LE Roll in/out w/PF contractioin Supine Exercise Name Roll in/out w/PF contraction every other one Reps/Minutes 4' Lateral Hip stretch Supine Exercise Name Lateral Hip stretch (L>R) Side bilateral Reps/Minutes 6' Piriformis stretch Supine Exercise Name Knee to opposite shoulder Side left Reps/Minutes 3' Comments Phys cuing needed. Hip ER stretch Supine Exercise Name Fig 4 stretch, f/b active stretch Side bilateral Reps/Minutes 5' Comments Pt found to have excessive L rot of pelvis presenting R< L in ROM. TA tightening Supine Exercise Name TA tightening Reps/Minutes 5' Comments Phys & v cuing to get full TA contraction Neuro Re-Education Treatment Other Activities PF awareness training Details E-Stim for PF contraction awareness training Reps/Duration 12' Comments Use of vaginal electrode, Intensity 22-25 pt feeling slight contraction, then no sensation. PF checked vaginally with digit, pt had normal sensation. Self-Care/Home Management Treatment Education Patient Education Home Exercise Program Activities Self-Care/Home Management Activities Issued & reviewed L lateral hip stretch. Issued vaginal sensor with I/S for care. 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 (02/23/21: Leaking 1x/day ). 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 (02/23/21: Occurred x 1 and notices less onset with squatting, but leaks noticeably more with period) LTG Duration 04/19/21 (02/23/21: Progressing) Three Impairment Urinary leakage with lifting. Short Term Goal (STG) Increase PF strength of anterior and L wall to 3/5. STG Duration 02/23/21 Senior Living Goal (LTG) Improve Long hold PF strength to 10 secs hold or no leakage with lifting of dogs into car. (02/23/21: Leaks when having period, otherwise doesn't). LTG Duration 04/19/21 (02/23/21: Improved) Two Impairment Urinary leakage with coughing Short Term Goal (STG) Improve Quick Flick PF strength to 5x before fatigue STG Duration 02/23/21 Senior Living Goal (LTG) Improve Quick Flick PF strength (>5x before fatigue) or no leakage with controlled cough. LTG Duration 04/19/21 One Impairment HEP Short Term Goal (STG) Pt will be educated in proper abdominal care of Rectus abdominis and proper Kegel exercise. (02/09/21: Educated pt in care of DR 02/23/21: Pt able to do Kegel with improved coordination with TA) STG Duration 02/02/21 (02/23/21: MET GOAL) Senior Living Goal (LTG) Pt independent in a self care HEP of PF and core strengthening and hip ROM exercises. (02/23/21: Added LE hip rotation stretches ) LTG Duration 04/19/21 (02/23/21: Progressed ) Assessment Summary Assessment Pt shows improved control with TA contraction with ability to contract with TA in both upper and lower core lily. Pt was familiar with hip stretches, but has been doing both sides vs concentrating on the tight side; therefore her hip mobility has not changed. No significant change with urinary stress incontinence since last treatment due to pt not being consistent with her HEP. Pt DR is shallow with measurment above umbilicus is 1.5 to 2.5 finger widths, below umibilicus is 1-1.5 finger widths. Pt was not able to get a good PF contraction with use of E-Stim , and initially felt a small contraction f/b no feeling of stim. When immediately removed, digital palpation showed pt had good sensation of PF/vaginal region. Intensity of Pathway PF-10 unit was 22-29 when she could no longer feel stim. Physical Therapy Plan Frequency and Duration Frequency of Treatment 1x/Week Plan of Care Start Date 01/19/21 Plan of Care End Date 04/19/21 Next Visit Focus/Plan Next Note Type Treatment Note Next Visit Plan Recheck hip ER/IR ROM by next 2 visits. Try PF stim for PF contraction awareness training. Stress Urinary Incontinence and DR/PF rehabilitation 9 yrs post vaginal . Recheck L and anterior PF strength. Try K- tape of DR to facilitate TA tightening. Core, PF & TA strengthening, & monitor for DR protection.
--- NOTE | 2021-03-02 16:30 | PT.OTN ---
Current Diagnoses Stiffness of unspecified hip, not elsewhere classified (03/02/21) Muscle weakness (generalized) (03/02/21) Cystocele, unspecified (03/02/21) Female genital prolapse, unspecified (03/02/21) Unspecified urinary incontinence (03/02/21) Physical Therapy Treatment Note PT-OP-A Visit Information Start: 01/11/21 17:54 Freq: Status: Active Protocol: Document 03/02/21 12:46 LRN (Rec: 03/02/21 13:33 LRN [id number]) Out-Patient Physical Therapy Visit Information Visit Information Visit Type Treatment Note Visit Start Time 12:46 Visit Stop Time 13:27 Total Visit Minutes 41 Visit Number 5 Evaluation Information Evaluation Date 01/19/21 Precautions Precautions Controlled HBP. 5'#, BMI 36.6 (Obesity = BMI >29) Cough hypersensitivity disorder. PT-OP-B Current Condition Start: 01/11/21 17:54 Freq: Status: Active Protocol: Document 01/19/21 09:54 LRN (Rec: 01/19/21 11:00 LRN [id number]) Current Condition History of Current Condition Onset Date 9 yrs ago, referred to PT [address] Tam Current Complaints Urinary leakage History of Current Condition Pt having urinary leakage that worsens when her period starts, but she is on control medications and is no longer having periods; therefore leakage has normalized. If urinates, then can run immediately after for 10-15', but hasn't ran in 9 yrs. Walks now without leakage unless pulling dog back. Works at [employer]. If did everything she wanted to do, states she would leak probably 3-4x/day ( like run upstairs, play with daughter). Prior Treatments and Tests None. Developmental History Developmental History Pt has urinary leakage with coughing, lifting, strenuous activity, exercise (running, tennis, soccer, hasn't done in 9 yrs). Treatment Goals Patient/Caregiver Goals Pt goal with therapy is to be activity to play sport with her 9 yr old daughter (tennis, soccer). Reduce urinary leaking to less than a couple times a week due to cough hypersensitivity disorder. Eliminate urinary leakage due to dog pulling her at work, lifting dog into vehicle. 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 Baseline Function- Other Controlled HBP. 5#, BMI is 36.6 Leaked with coughing since of her daughter 9 yrs ago. 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 Functional Limitations- Recreation/ Strenuous activity (sports Hobbies with daughter) Personal Factors Other Personal Factors That May Effect . Leaked with coughing Therapy/Recovery since daughter's childbirth 9 yrs ago. 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 Leaked with coughing since of her daughter 9 yrs ago. Cough hypersensitivity disorder. BMI is 36.6 (>30, Obese) PT-OP-C Subjective Start: 01/11/21 17:54 Freq: Status: Active Protocol: Document 03/02/21 12:46 LRN (Rec: 03/02/21 13:33 LRN [id number]) OP-PT Subjective Patient Comments Patient Comments Hasn't been as good as she has been. Leaking more, may be hormone cycle and not as much ex. PT-OP-I Pelvic Floor Start: 01/11/21 17:54 Freq: Status: Active Protocol: Document 03/02/21 12:46 LRN (Rec: 03/02/21 16:29 LRN [id number]) Pelvic Floor Assessment Comments Pelvic Floor Comments DR: Above umbilicus 3-5 : 2.5 finger widths Above umbilicus 1-2 : 1.5 finger widths Below umbilicus 1-2: 1.5 finger widths Below unmbilicus 3: 1 finger widths PT-OP-J Posture/Palpation/Skin Start: 01/11/21 17:54 Freq: Status: Active Protocol: Document 01/19/21 09:54 LRN (Rec: 01/19/21 11:00 LRN [id number]) Posture Evaluation Position Standing T-Spine Posture Flattened L-Spine Posture Increased Lordosis Scapula Posture (R) Elevated Arm Posture (L) Internally Rotated,(R) Internally Rotated Knee Posture (L) Genu Valgus,(R) Genu Valgus Comments Posture Comments BMI 36.6 PT-OP-K Range of Motion Start: 01/11/21 17:54 Freq: Status: Active Protocol: Document 03/02/21 12:46 LRN (Rec: 03/02/21 13:33 LRN [id number]) Hip Goniometric Range of Motion Hip Right Passive Testing Position Supine Internal Rotation 25 External Rotation 85 Left Passive Testing Position Supine Internal Rotation 20 External Rotation 90 PT-OP-M Strength Start: 01/11/21 17:54 Freq: Status: Active Protocol: Document 01/19/21 09:54 LRN (Rec: 01/19/21 11:00 LRN [id number]) Trunk Strength Trunk Manual Muscle Testing Core Stabilization Loss of core control with MMT of R hip flexor & arben hip AB & Ext (pelvis R rotates) Hip Strength Hip Manual Muscle Testing Right Comments Generally 5/5 Left Comments Generally 5/5 PT-OP-Q Treatments Start: 01/11/21 17:54 Freq: Status: Active Protocol: Document 03/02/21 12:46 LRN (Rec: 03/02/21 13:33 LRN [id number]) Therapeutic Exercises Supine Exercises LE Roll in/out w/PF contractioin Supine Exercise Name Roll in/out w/PF contraction every other one Reps/Minutes 4' Lateral Hip stretch Supine Exercise Name Lateral Hip stretch (L>R) Side bilateral Reps/Minutes 6' Piriformis stretch Supine Exercise Name Knee to opposite shoulder Side left Reps/Minutes 3' Comments Phys cuing needed. Hip ER stretch Supine Exercise Name Fig 4 stretch, f/b active stretch Side bilateral Reps/Minutes 5' Comments Pt found to have excessive L rot of pelvis presenting R< L in ROM. TA tightening Supine Exercise Name TA tightening Reps/Minutes 5' Comments Phys & v cuing to get full TA contraction Neuro Re-Education Treatment Other Activities PF awareness training Details E-Stim for PF contraction awareness training Reps/Duration 12' Comments Use of vaginal electrode, Intensity 22-25 pt feeling slight contraction, then no sensation. PF checked vaginally with digit, pt had normal sensation. Self-Care/Home Management Treatment Education Patient Education Home Exercise Program Activities Self-Care/Home Management Activities Issued & reviewed L lateral hip stretch. Issued vaginal sensor with I/S for care. 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 (02/23/21: Leaking 1x/day ). 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 (02/23/21: Occurred x 1 and notices less onset with squatting, but leaks noticeably more with period) LTG Duration 04/19/21 (02/23/21: Progressing) Three Impairment Urinary leakage with lifting. Short Term Goal (STG) Increase PF strength of anterior and L wall to 3/5. STG Duration 02/23/21 Senior Living Goal (LTG) Improve Long hold PF strength to 10 secs hold or no leakage with lifting of dogs into car. (02/23/21: Leaks when having period, otherwise doesn't). LTG Duration 04/19/21 (02/23/21: Improved) Two Impairment Urinary leakage with coughing Short Term Goal (STG) Improve Quick Flick PF strength to 5x before fatigue STG Duration 02/23/21 Senior Living Goal (LTG) Improve Quick Flick PF strength (>5x before fatigue) or no leakage with controlled cough. LTG Duration 04/19/21 One Impairment HEP Short Term Goal (STG) Pt will be educated in proper abdominal care of Rectus abdominis and proper Kegel exercise. (02/09/21: Educated pt in care of DR 02/23/21: Pt able to do Kegel with improved coordination with TA) STG Duration 02/02/21 (02/23/21: MET GOAL) Senior Living Goal (LTG) Pt independent in a self care HEP of PF and core strengthening and hip ROM exercises. (02/23/21: Added LE hip rotation stretches ) LTG Duration 04/19/21 (02/23/21: Progressed ) Assessment Summary Assessment Pt shows improved control with TA contraction with ability to contract with TA in both upper and lower core lily. Pt was familiar with hip stretches, but has been doing both sides vs concentrating on the tight side; therefore her hip mobility has not changed. No significant change with urinary stress incontinence since last treatment due to pt not being consistent with her HEP. Pt DR is shallow with measurment above umbilicus is 1.5 to 2.5 finger widths, below umibilicus is 1-1.5 finger widths. Pt was not able to get a good PF contraction with use of E-Stim , and initially felt a small contraction f/b no feeling of stim. When immediately removed, digital palpation showed pt had good sensation of PF/vaginal region. Intensity of Pathway PF-10 unit was 22-29 when she could no longer feel stim. Physical Therapy Plan Frequency and Duration Frequency of Treatment 1x/Week Plan of Care Start Date 01/19/21 Plan of Care End Date 04/19/21 Next Visit Focus/Plan Next Note Type Treatment Note Next Visit Plan Recheck hip ER/IR ROM by next 2 visits. Try PF stim for PF contraction awareness training. Stress Urinary Incontinence and DR/PF rehabilitation 9 yrs post vaginal . Recheck L and anterior PF strength. Try K- tape of DR to facilitate TA tightening. Core, PF & TA strengthening, & monitor for DR protection.
--- NOTE | 2021-03-05 15:19 | PT.OTN ---
Current Diagnoses Stiffness of unspecified hip, not elsewhere classified (03/05/21) Muscle weakness (generalized) (03/05/21) Cystocele, unspecified (03/05/21) Female genital prolapse, unspecified (03/05/21) Unspecified urinary incontinence (03/05/21) Physical Therapy Treatment Note PT-OP-A Visit Information Start: 01/11/21 17:54 Freq: Status: Active Protocol: Document 03/05/21 14:22 LRN (Rec: 03/05/21 15:19 LRN [id number]) Out-Patient Physical Therapy Visit Information Visit Information Visit Type Treatment Note Visit Start Time 14:22 Visit Stop Time 15:03 Total Visit Minutes 41 Visit Number 6 Evaluation Information Evaluation Date 01/19/21 Precautions Precautions Controlled HBP. 5'#, BMI 36.6 (Obesity = BMI >29) Cough hypersensitivity disorder. PT-OP-B Current Condition Start: 01/11/21 17:54 Freq: Status: Active Protocol: Document 01/19/21 09:54 LRN (Rec: 01/19/21 11:00 LRN [id number]) Current Condition History of Current Condition Onset Date 9 yrs ago, referred to PT [address] Tam Current Complaints Urinary leakage History of Current Condition Pt having urinary leakage that worsens when her period starts, but she is on control medications and is no longer having periods; therefore leakage has normalized. If urinates, then can run immediately after for 10-15', but hasn't ran in 9 yrs. Walks now without leakage unless pulling dog back. Works at [employer]. If did everything she wanted to do, states she would leak probably 3-4x/day ( like run upstairs, play with daughter). Prior Treatments and Tests None. Developmental History Developmental History Pt has urinary leakage with coughing, lifting, strenuous activity, exercise (running, tennis, soccer, hasn't done in 9 yrs). Treatment Goals Patient/Caregiver Goals Pt goal with therapy is to be activity to play sport with her 9 yr old daughter (tennis, soccer). Reduce urinary leaking to less than a couple times a week due to cough hypersensitivity disorder. Eliminate urinary leakage due to dog pulling her at work, lifting dog into vehicle. 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 Baseline Function- Other Controlled HBP. 5#, BMI is 36.6 Leaked with coughing since of her daughter 9 yrs ago. 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 Functional Limitations- Recreation/ Strenuous activity (sports Hobbies with daughter) Personal Factors Other Personal Factors That May Effect . Leaked with coughing Therapy/Recovery since daughter's childbirth 9 yrs ago. 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 Leaked with coughing since of her daughter 9 yrs ago. Cough hypersensitivity disorder. BMI is 36.6 (>30, Obese) PT-OP-C Subjective Start: 01/11/21 17:54 Freq: Status: Active Protocol: Document 03/05/21 14:22 LRN (Rec: 03/05/21 15:19 LRN [id number]) OP-PT Subjective Patient Comments Patient Comments ............. After last session the back was very sore for a day. Next morning back was super stiff. Has noticed the more she does the workout she gets a stiff low back. PT-OP-I Pelvic Floor Start: 01/11/21 17:54 Freq: Status: Active Protocol: Document 03/02/21 12:46 LRN (Rec: 03/02/21 16:29 LRN [id number]) Pelvic Floor Assessment Comments Pelvic Floor Comments DR: Above umbilicus 3-5 : 1.5 finger widths Above umbilicus 1-2 : 2.5 finger widths Below umbilicus 1-2: 1.5 finger widths Below unmbilicus 3: 1 finger widths PT-OP-J Posture/Palpation/Skin Start: 01/11/21 17:54 Freq: Status: Active Protocol: Document 01/19/21 09:54 LRN (Rec: 01/19/21 11:00 LRN [id number]) Posture Evaluation Position Standing T-Spine Posture Flattened L-Spine Posture Increased Lordosis Scapula Posture (R) Elevated Arm Posture (L) Internally Rotated,(R) Internally Rotated Knee Posture (L) Genu Valgus,(R) Genu Valgus Comments Posture Comments BMI 36.6 PT-OP-K Range of Motion Start: 01/11/21 17:54 Freq: Status: Active Protocol: Document 03/02/21 12:46 LRN (Rec: 03/02/21 13:33 LRN [id number]) Hip Goniometric Range of Motion Hip Right Passive Testing Position Supine Internal Rotation 25 External Rotation 85 Left Passive Testing Position Supine Internal Rotation 20 External Rotation 90 PT-OP-M Strength Start: 01/11/21 17:54 Freq: Status: Active Protocol: Document 01/19/21 09:54 LRN (Rec: 01/19/21 11:00 LRN [id number]) Trunk Strength Trunk Manual Muscle Testing Core Stabilization Loss of core control with MMT of R hip flexor & arben hip AB & Ext (pelvis R rotates) Hip Strength Hip Manual Muscle Testing Right Comments Generally 5/5 Left Comments Generally 5/5 PT-OP-Q Treatments Start: 01/11/21 17:54 Freq: Status: Active Protocol: Document 03/05/21 14:22 LRN (Rec: 03/05/21 15:19 LRN [id number]) Therapeutic Exercises Supine Exercises PF contraction/Ball Squeeze Supine Exercise Name PF contraction/Ball squeeze ( relaxation: BKFO w/TB) Side bilateral Reps/Minutes 10 hold f/b BKFO x 10 - 3 sets L BKFO w/PF contraction Supine Exercise Name L BKFO w/PF long hold contraction Side left Reps/Minutes 10x 3 Comments Extra time for training with phys & v cuing for when to PF contract Hip Flexor stretch Supine Exercise Name Tim Test Position stretch Side bilateral Reps/Minutes 6' LE Roll in/out w/PF contractioin Supine Exercise Name LE Roll in/out w/Deep Breathing & PF contraction Side bilateral Reps/Minutes 4' Comments Phys assist for roll in/out & v cuing for 6 sec breath needed Lateral Hip stretch Supine Exercise Name Lateral Hip stretch (L>R) Side bilateral Reps/Minutes 4' Piriformis stretch Supine Exercise Name Knee to opposite shoulder Side left Reps/Minutes 3' Comments Phys cuing needed. Hip ER stretch Supine Exercise Name Fig 4 stretch, f/b active stretch Side bilateral Reps/Minutes 4' Comments Pt found to have excessive L rot of pelvis presenting R< L in ROM. Standing Exercises Hip Flexor stretch Standing Exercise Name Hip Flexor stretch Side bilateral Reps/Minutes 8' Comments Extra time taken for training of correct positioning. Self-Care/Home Management Treatment Education Patient Education Home Exercise Program Activities Self-Care/Home Management Activities Issued & reviewed: Hip flexor stretch in supine & standing, and L sided PF strengthening with BKFO. 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 (02/23/21: Leaking 1x/day ). STG Duration 02/09/21 (02/23/21: No change) Stores Clerk Goal (LTG) No leakage with sudden movements in squatting position when moving dog patients. (02/23/21: Occurred x 1 and notices less onset with squatting, but leaks noticeably more with period) LTG Duration 04/19/21 (02/23/21: Progressing) Three Impairment Urinary leakage with lifting. Short Term Goal (STG) Increase PF strength of anterior and L wall to 3/5. STG Duration 02/23/21 Stores Clerk Goal (LTG) Improve Long hold PF strength to 10 secs hold or no leakage with lifting of dogs into car. (02/23/21: Leaks when having period, otherwise doesn't). LTG Duration 04/19/21 (02/23/21: Improved) Two Impairment Urinary leakage with coughing Short Term Goal (STG) Improve Quick Flick PF strength to 5x before fatigue STG Duration 02/23/21 Stores Clerk Goal (LTG) Improve Quick Flick PF strength (>5x before fatigue) or no leakage with controlled cough. LTG Duration 04/19/21 One Impairment HEP Short Term Goal (STG) Pt will be educated in proper abdominal care of Rectus abdominis and proper Kegel exercise. (02/09/21: Educated pt in care of DR 02/23/21: Pt able to do Kegel with improved coordination with TA) STG Duration 02/02/21 (02/23/21: MET GOAL) Stores Clerk Goal (LTG) Pt independent in a self care HEP of PF and core strengthening and hip ROM exercises. (02/23/21: Added LE hip flexor stretch & L sided PF strengthening with BKFO). LTG Duration 04/19/21 (03/05/21: Progressed) Progress Towards Goals Progress Comments HEP progressed for L sided PF strengthening and for LBP: hip flexor stretching. Assessment Summary Assessment Pt has tight hip flexors and AB's as noted with Tim Test . PF E-Stim resulted in LBP; therefore will hold use of E- Stim. Pt had some difficulty with LE roll in/out with Deep breathing & PF long hold contraction, needing physical assist and cuing; needs further monitoring. Physical Therapy Plan Frequency and Duration Frequency of Treatment 1x/Week Plan of Care Start Date 01/19/21 Plan of Care End Date 04/19/21 Next Visit Focus/Plan Next Note Type Treatment Note Next Visit Plan Recheck hip ER/IR ROM next visit, and PF strength (L side & anterior). Stress Urinary Incontinence and DR/PF rehabilitation 9 yrs post vaginal . Recheck L and anterior PF strength. ?Try K- tape of DR to facilitate TA tightening. Core, PF & TA strengthening, & monitor for DR protection.
--- NOTE | 2021-03-16 16:45 | PT.OTN ---
Current Diagnoses Stiffness of unspecified hip, not elsewhere classified (03/16/21) Muscle weakness (generalized) (03/16/21) Cystocele, unspecified (03/16/21) Female genital prolapse, unspecified (03/16/21) Unspecified urinary incontinence (03/16/21) Physical Therapy Treatment Note PT-OP-A Visit Information Start: 01/11/21 17:54 Freq: Status: Active Protocol: Document 03/16/21 10:32 LRN (Rec: 03/16/21 12:31 LRN [id number]) Out-Patient Physical Therapy Visit Information Visit Information Visit Type Treatment Note Visit Start Time 10:32 Visit Stop Time 11:14 Total Visit Minutes 42 Visit Number 7 Evaluation Information Evaluation Date 01/19/21 Precautions Precautions Controlled HBP. 5'#, BMI 36.6 (Obesity = BMI >29) Cough hypersensitivity disorder. PT-OP-B Current Condition Start: 01/11/21 17:54 Freq: Status: Active Protocol: Document 01/19/21 09:54 LRN (Rec: 01/19/21 11:00 LRN [id number]) Current Condition History of Current Condition Onset Date 9 yrs ago, referred to PT [address] Tam Current Complaints Urinary leakage History of Current Condition Pt having urinary leakage that worsens when her period starts, but she is on control medications and is no longer having periods; therefore leakage has normalized. If urinates, then can run immediately after for 10-15', but hasn't ran in 9 yrs. Walks now without leakage unless pulling dog back. Works at [employer]. If did everything she wanted to do, states she would leak probably 3-4x/day ( like run upstairs, play with daughter). Prior Treatments and Tests None. Developmental History Developmental History Pt has urinary leakage with coughing, lifting, strenuous activity, exercise (running, tennis, soccer, hasn't done in 9 yrs). Treatment Goals Patient/Caregiver Goals Pt goal with therapy is to be activity to play sport with her 9 yr old daughter (tennis, soccer). Reduce urinary leaking to less than a couple times a week due to cough hypersensitivity disorder. Eliminate urinary leakage due to dog pulling her at work, lifting dog into vehicle. 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 Baseline Function- Other Controlled HBP. 5'5/220#, BMI is 36.6 Leaked with coughing since of her daughter 9 yrs ago. 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 Functional Limitations- Recreation/ Strenuous activity (sports Hobbies with daughter) Personal Factors Other Personal Factors That May Effect . Leaked with coughing Therapy/Recovery since daughter's childbirth 9 yrs ago. 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 Leaked with coughing since of her daughter 9 yrs ago. Cough hypersensitivity disorder. BMI is 36.6 (>30, Obese) PT-OP-C Subjective Start: 01/11/21 17:54 Freq: Status: Active Protocol: Document 03/16/21 10:32 LRN (Rec: 03/16/21 12:31 LRN [id number]) OP-PT Subjective Patient Comments Patient Comments Getting to point she is trying to use legs more to lift. Was able to lift her 50# dog sometimes using legs more and not leak. PT-OP-I Pelvic Floor Start: 01/11/21 17:54 Freq: Status: Active Protocol: Document 03/16/21 10:32 LRN (Rec: 03/16/21 12:31 LRN [id number]) Pelvic Floor Assessment Pelvic Clock Pelvic Clock 3-6 Tenderness Pelvic Clock 6-9 Tenderness Contraction Ability Manual Muscle Testing Left 3 Manual Muscle Testing Right 2 Manual Muscle Testing Anterior 3 Manual Muscle Testing Posterior 3 Muscle Endurance (Seconds) 10 Number of Quick Contractions In 10 10 Seconds Comments Pelvic Floor Comments Long Hold: Decreased coordination of contraction. Quick Flicks: Decreased relaxation abilty. PT-OP-J Posture/Palpation/Skin Start: 01/11/21 17:54 Freq: Status: Active Protocol: Document 01/19/21 09:54 LRN (Rec: 01/19/21 11:00 LRN [id number]) Posture Evaluation Position Standing T-Spine Posture Flattened L-Spine Posture Increased Lordosis Scapula Posture (R) Elevated Arm Posture (L) Internally Rotated,(R) Internally Rotated Knee Posture (L) Genu Valgus,(R) Genu Valgus Comments Posture Comments BMI 36.6 PT-OP-K Range of Motion Start: 01/11/21 17:54 Freq: Status: Active Protocol: Document 03/02/21 12:46 LRN (Rec: 03/02/21 13:33 LRN [id number]) Hip Goniometric Range of Motion Hip Right Passive Testing Position Supine Internal Rotation 25 External Rotation 85 Left Passive Testing Position Supine Internal Rotation 20 External Rotation 90 PT-OP-M Strength Start: 01/11/21 17:54 Freq: Status: Active Protocol: Document 01/19/21 09:54 LRN (Rec: 01/19/21 11:00 LRN [id number]) Trunk Strength Trunk Manual Muscle Testing Core Stabilization Loss of core control with MMT of R hip flexor & arben hip AB & Ext (pelvis R rotates) Hip Strength Hip Manual Muscle Testing Right Comments Generally 5/5 Left Comments Generally 5/5 PT-OP-Q Treatments Start: 01/11/21 17:54 Freq: Status: Active Protocol: Document 03/16/21 10:32 LRN (Rec: 03/16/21 12:31 LRN [id number]) Therapeutic Exercises Supine Exercises PF contraction/Ball Squeeze Supine Exercise Name PF contraction/Ball squeeze ( relaxation: BKFO w/TB) Side bilateral Reps/Minutes 6' Comments Quick & Long hold 5reps with focus on anterior & Lwall. L BKFO w/PF contraction Supine Exercise Name L BKFO w/PF long hold contraction Side left Reps/Minutes 10x 3 Comments Focus on relaxation between contractions LE Roll in/out w/PF contractioin Supine Exercise Name LE Roll in/out w/Deep Breathing & PF contraction Side bilateral Reps/Minutes 4' Comments Phys assist for roll in/out & v cuing for 6 sec breath needed Lateral Hip stretch Supine Exercise Name Lateral Hip stretch (L>R) Side bilateral Reps/Minutes 4' Piriformis stretch Supine Exercise Name Knee to opposite shoulder Side left Reps/Minutes 3' Comments Phys cuing needed. Hip ER stretch Supine Exercise Name Fig 4 stretch, f/b active stretch Side bilateral Reps/Minutes 4' Comments Pt found to have excessive L rot of pelvis presenting R< L in ROM. Manual Therapy Treatment Taping taping Body Location Abdomen Treatment Focus Facilitate TA and DR closure Type of Tape Kinesio Tape Skin Inspection Good Comments Pt I/S in safe and proper removal in 5 days unless signs of allergic reaction, then pt to remove at once. Self-Care/Home Management Treatment Activities Self-Care/Home Management Activities I/S pt in self PF stretching with use of PF model, to decrease vaginal gapping and decrease tenderness of 3 to 9 of PF clock. 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 (02/23/21: Leaking 1x/day ). 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 (02/23/21: Occurred x 1 and notices less onset with squatting, but leaks noticeably more with period) LTG Duration 04/19/21 (02/23/21: Progressing) Three Impairment Urinary leakage with lifting. Short Term Goal (STG) Increase PF strength of anterior and L wall to 3/5. STG Duration 02/23/21 Custodial Goal (LTG) Improve Long hold PF strength to 10 secs hold or no leakage with lifting of dogs into car. (02/23/21: Leaks when having period, otherwise doesn't). LTG Duration 04/19/21 (02/23/21: Improved) Two Impairment Urinary leakage with coughing Short Term Goal (STG) Improve Quick Flick PF strength to 5x before fatigue STG Duration 02/23/21 Custodial Goal (LTG) Improve Quick Flick PF strength (>5x before fatigue) or no leakage with controlled cough. LTG Duration 04/19/21 One Impairment HEP Short Term Goal (STG) Pt will be educated in proper abdominal care of Rectus abdominis and proper Kegel exercise. (02/09/21: Educated pt in care of DR 02/23/21: Pt able to do Kegel with improved coordination with TA) STG Duration 02/02/21 (02/23/21: MET GOAL) Custodial Goal (LTG) Pt independent in a self care HEP of PF and core strengthening and hip ROM exercises. (02/23/21: Added LE hip flexor stretch & L sided PF strengthening with BKFO). LTG Duration 04/19/21 (03/05/21: Progressed) Assessment Summary Assessment Pt initially had hard time relaxing the PF after a quick contraction with pt noting not much change in ms tone. L lateral and anterior wall PF strength improved with palpable contraction (3/5), R lateral wall was slow to contract and weak; therefore pt needs to strengthen arben lateral pagan, but must work on relaxation of PF. She has gapping of her vagina and may need PF stretching due to tightness and tenderness of PF . Pt felt K-tape was helpful in imiproving TA awareness. Physical Therapy Plan Frequency and Duration Frequency of Treatment 1x/Week Plan of Care Start Date 01/19/21 Plan of Care End Date 04/19/21 Next Visit Focus/Plan Next Note Type Treatment Note Next Visit Plan Recheck hip ER/IR ROM next visit. Stress Urinary Incontinence and DR/PF rehabilitation 9 yrs post vaginal . Assess response to K-tape of DR to facilitate TA tightening. PF stretching, core & TA strengthening, & monitor for DR protection.
--- NOTE | 2021-03-30 16:14 | PT.OTN ---
Current Diagnoses Stiffness of unspecified hip, not elsewhere classified (03/30/21) Muscle weakness (generalized) (03/30/21) Cystocele, unspecified (03/30/21) Female genital prolapse, unspecified (03/30/21) Unspecified urinary incontinence (03/30/21) Physical Therapy Treatment Note PT-OP-A Visit Information Start: 01/11/21 17:54 Freq: Status: Active Protocol: Document 03/30/21 12:51 LRN (Rec: 03/30/21 13:35 LRN [id number]) Out-Patient Physical Therapy Visit Information Visit Information Visit Type Treatment Note Visit Start Time 12:51 Visit Stop Time 13:30 Total Visit Minutes 39 Visit Number 8 Evaluation Information Evaluation Date 01/19/21 Precautions Precautions Controlled HBP. 5'220#, BMI 36.6 (Obesity = BMI >29) Cough hypersensitivity disorder. PT-OP-B Current Condition Start: 01/11/21 17:54 Freq: Status: Active Protocol: Document 01/19/21 09:54 LRN (Rec: 01/19/21 11:00 LRN [id number]) Current Condition History of Current Condition Onset Date 9 yrs ago, referred to PT [address] Tam Current Complaints Urinary leakage History of Current Condition Pt having urinary leakage that worsens when her period starts, but she is on control medications and is no longer having periods; therefore leakage has normalized. If urinates, then can run immediately after for 10-15', but hasn't ran in 9 yrs. Walks now without leakage unless pulling dog back. Works at [employer]. If did everything she wanted to do, states she would leak probably 3-4x/day ( like run upstairs, play with daughter). Prior Treatments and Tests None. Developmental History Developmental History Pt has urinary leakage with coughing, lifting, strenuous activity, exercise (running, tennis, soccer, hasn't done in 9 yrs). Treatment Goals Patient/Caregiver Goals Pt goal with therapy is to be activity to play sport with her 9 yr old daughter (tennis, soccer). Reduce urinary leaking to less than a couple times a week due to cough hypersensitivity disorder. Eliminate urinary leakage due to dog pulling her at work, lifting dog into vehicle. 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 Baseline Function- Other Controlled HBP. 5'#, BMI is 36.6 Leaked with coughing since of her daughter 9 yrs ago. 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 Functional Limitations- Recreation/ Strenuous activity (sports Hobbies with daughter) Personal Factors Other Personal Factors That May Effect . Leaked with coughing Therapy/Recovery since daughter's childbirth 9 yrs ago. 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 Leaked with coughing since of her daughter 9 yrs ago. Cough hypersensitivity disorder. BMI is 36.6 (>30, Obese) PT-OP-C Subjective Start: 01/11/21 17:54 Freq: Status: Active Protocol: Document 03/30/21 12:51 LRN (Rec: 03/30/21 13:35 LRN [id number]) OP-PT Subjective Patient Comments Patient Comments No changes. Rarely lekaing with picking up a dog. Now a week before period, so leaking more. Found whe is allergic to adhesive, ended with 3 days of rash after removal. PT-OP-I Pelvic Floor Start: 01/11/21 17:54 Freq: Status: Active Protocol: Document 03/16/21 10:32 LRN (Rec: 03/16/21 12:31 LRN [id number]) Pelvic Floor Assessment Pelvic Clock Pelvic Clock 3-6 Tenderness Pelvic Clock 6-9 Tenderness Contraction Ability Manual Muscle Testing Left 3 Manual Muscle Testing Right 2 Manual Muscle Testing Anterior 3 Manual Muscle Testing Posterior 3 Muscle Endurance (Seconds) 10 Number of Quick Contractions In 10 10 Seconds Comments Pelvic Floor Comments Long Hold: Decreased coordination of contraction. Quick Flicks: Decreased relaxation abilty. PT-OP-J Posture/Palpation/Skin Start: 01/11/21 17:54 Freq: Status: Active Protocol: Document 01/19/21 09:54 LRN (Rec: 01/19/21 11:00 LRN [id number]) Posture Evaluation Position Standing T-Spine Posture Flattened L-Spine Posture Increased Lordosis Scapula Posture (R) Elevated Arm Posture (L) Internally Rotated,(R) Internally Rotated Knee Posture (L) Genu Valgus,(R) Genu Valgus Comments Posture Comments BMI 36.6 PT-OP-K Range of Motion Start: 01/11/21 17:54 Freq: Status: Active Protocol: Document 03/30/21 12:51 LRN (Rec: 03/30/21 13:35 LRN [id number]) Hip Goniometric Range of Motion Hip Right Passive Internal Rotation 40 External Rotation 75 Left Passive Internal Rotation 35 External Rotation 90 PT-OP-M Strength Start: 01/11/21 17:54 Freq: Status: Active Protocol: Document 01/19/21 09:54 LRN (Rec: 01/19/21 11:00 LRN [id number]) Trunk Strength Trunk Manual Muscle Testing Core Stabilization Loss of core control with MMT of R hip flexor & arben hip AB & Ext (pelvis R rotates) Hip Strength Hip Manual Muscle Testing Right Comments Generally 5/5 Left Comments Generally 5/5 PT-OP-Q Treatments Start: 01/11/21 17:54 Freq: Status: Active Protocol: Document 03/30/21 12:51 LRN (Rec: 03/30/21 13:35 LRN [id number]) Therapeutic Exercises Supine Exercises Legs on wall for PF relaxation Supine Exercise Name PF relaxation w/Deep Breathing Reps/Minutes 3' Trunk rot Supine Exercise Name Feet on wall trunk rot w/ Breathing Side bilateral Reps/Minutes 8' Comments Extra time for training Lateral Hip stretch Supine Exercise Name Lateral Hip stretch (L>R) Side bilateral Reps/Minutes 4' Piriformis stretch Supine Exercise Name Knee to opposite shoulder Side left Reps/Minutes 3' Comments Phys cuing needed. Hip ER stretch Supine Exercise Name Fig 4 stretch (3xR), f/b active stretch Side bilateral Reps/Minutes 8' Comments Excessive L rot of pelvis. Breathing with TA tight Supine Exercise Name Breathing w/TA tightening Reps/Minutes 3' Other Exercises Long sit HS stretch Other Exercise Name Hamstring stretch Side bilateral Reps/Minutes 3' Comments Extra time for positioning Long Sit stretch to hip AD Other Exercise Name Hip AD's stretching - V sit Side bilateral Reps/Minutes 4' Comments Extra time for positioning Self-Care/Home Management Treatment Education Patient Education Home Exercise Program Activities Self-Care/Home Management Activities HEP issued & reviewed: Phase 2: Abdominal Core Power Active of feet on wall for roll in/out and trunk rotation . 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 (02/23/21: Leaking 1x/day ). STG Duration 02/09/21 (02/23/21: No change) Center Medical Director Goal (LTG) No leakage with sudden movements in squatting position when moving dog patients. (02/23/21: Occurred x 1 and notices less onset with squatting, but leaks noticeably more with period) LTG Duration 04/19/21 (02/23/21: Progressing) Three Impairment Urinary leakage with lifting. Short Term Goal (STG) Increase PF strength of anterior and L wall to 3/5. STG Duration 02/23/21 Center Medical Director Goal (LTG) Improve Long hold PF strength to 10 secs hold or no leakage with lifting of dogs into car. (02/23/21: Leaks when having period, otherwise doesn't). LTG Duration 04/19/21 (02/23/21: Improved) Two Impairment Urinary leakage with coughing Short Term Goal (STG) Improve Quick Flick PF strength to 5x before fatigue STG Duration 02/23/21 Intermediate Goal (LTG) Improve Quick Flick PF strength (>5x before fatigue) or no leakage with controlled cough. LTG Duration 04/19/21 One Impairment HEP Short Term Goal (STG) Pt will be educated in proper abdominal care of Rectus abdominis and proper Kegel exercise. (02/09/21: Educated pt in care of 02/23/21: Pt able to do Kegel with improved coordination with TA) STG Duration 02/02/21 (02/23/21: MET GOAL) Intermediate Goal (LTG) Pt independent in a self care HEP of PF and core strengthening and hip ROM exercises. (02/23/21: Added LE hip flexor stretch & L sided PF strengthening with BKFO). LTG Duration 04/19/21 (03/05/21: Progressed) Assessment Summary Assessment R hip ER is tight (decreased 20 deg's), L hip IR is decreased 5 deg's when compared to opposite side. Pt feels her period is close to starting; therefore she tends to leak more and she did self PF stretching as best she could, so she is not feeling improvement this week in her urinary incontinence, infact maybe a little worse with self stretching.. Physical Therapy Plan Frequency and Duration Frequency of Treatment 1x/Week Plan of Care Start Date 01/19/21 Plan of Care End Date 04/19/21 Next Visit Focus/Plan Next Note Type Treatment Note Next Visit Plan Stretch PF, then pt to work on PF strengthening. Stress Urinary Incontinence and DR/PF rehabilitation 9 yrs post vaginal . PF stretching, deep breathing practice while maintaining core stability; core & TA strengthening, & monitor for DR protection.
--- NOTE | 2021-04-20 10:56 | PT-OP ANOTE ---
Pt DNS, called and left message of missed appt and notified pt of next appt date and time.
--- NOTE | 2021-07-20 08:53 | PT.OPDS ---
Current Diagnoses Stiffness of unspecified hip, not elsewhere classified (03/30/21) Muscle weakness (generalized) (03/30/21) Cystocele, unspecified (03/30/21) Female genital prolapse, unspecified (03/30/21) Unspecified urinary incontinence (03/30/21) Visit Care Team Role Provider Type Guanaco Chauhan MD Family Provider Non-Staff Primary Care Provider Specialty: Medical Address: [address] [place] [address], [address] Email: Rianna Tam MD Attending Provider Physician Referring Provider Specialty: RELATIONSHIP MANAGER Address: [address] [place] [address], [address] Email: [email or web address] Visit Number Visit Number 8 Discharge Summary PT-OP-B Current Condition Start: 01/11/21 17:54 Freq: Status: Active Protocol: Document 01/19/21 09:54 LRN (Rec: 01/19/21 11:00 LRN [id number]) Current Condition History of Current Condition Onset Date 9 yrs ago, referred to PT [address] Tam Current Complaints Urinary leakage History of Current Condition Pt having urinary leakage that worsens when her period starts, but she is on control medications and is no longer having periods; therefore leakage has normalized. If urinates, then can run immediately after for 10-15', but hasn't ran in 9 yrs. Walks now without leakage unless pulling dog back. Works at [employer]. If did everything she wanted to do, states she would leak probably 3-4x/day ( like run upstairs, play with daughter). Prior Treatments and Tests None. Developmental History Developmental History Pt has urinary leakage with coughing, lifting, strenuous activity, exercise (running, tennis, soccer, hasn't done in 9 yrs). Treatment Goals Patient/Caregiver Goals Pt goal with therapy is to be activity to play sport with her 9 yr old daughter (tennis, soccer). Reduce urinary leaking to less than a couple times a week due to cough hypersensitivity disorder. Eliminate urinary leakage due to dog pulling her at work, lifting dog into vehicle. 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 Baseline Function- Other Controlled HBP. 5'#, BMI is 36.6 Leaked with coughing since of her daughter 9 yrs ago. 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 Functional Limitations- Recreation/ Strenuous activity (sports Hobbies with daughter) Personal Factors Other Personal Factors That May Effect . Leaked with coughing Therapy/Recovery since daughter's childbirth 9 yrs ago. 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 Leaked with coughing since of her daughter 9 yrs ago. Cough hypersensitivity disorder. BMI is 36.6 (>30, Obese) PT-OP-C Subjective Start: 01/11/21 17:54 Freq: Status: Active Protocol: Document 03/30/21 12:51 LRN (Rec: 03/30/21 13:35 LRN [id number]) OP-PT Subjective Patient Comments Patient Comments No changes. Rarely lekaing with picking up a dog. Now a week before period, so leaking more. Found whe is allergic to adhesive, ended with 3 days of rash after removal. PT-OP-I Pelvic Floor Start: 01/11/21 17:54 Freq: Status: Active Protocol: Document 03/16/21 10:32 LRN (Rec: 03/16/21 12:31 LRN [id number]) Pelvic Floor Assessment Pelvic Clock Pelvic Clock 3-6 Tenderness Pelvic Clock 6-9 Tenderness Contraction Ability Manual Muscle Testing Left 3 Manual Muscle Testing Right 2 Manual Muscle Testing Anterior 3 Manual Muscle Testing Posterior 3 Muscle Endurance (Seconds) 10 Number of Quick Contractions In 10 10 Seconds Comments Pelvic Floor Comments Long Hold: Decreased coordination of contraction. Quick Flicks: Decreased relaxation abilty. PT-OP-J Posture/Palpation/Skin Start: 01/11/21 17:54 Freq: Status: Active Protocol: Document 01/19/21 09:54 LRN (Rec: 01/19/21 11:00 LRN [id number]) Posture Evaluation Position Standing T-Spine Posture Flattened L-Spine Posture Increased Lordosis Scapula Posture (R) Elevated Arm Posture (L) Internally Rotated,(R) Internally Rotated Knee Posture (L) Genu Valgus,(R) Genu Valgus Comments Posture Comments BMI 36.6 PT-OP-K Range of Motion Start: 01/11/21 17:54 Freq: Status: Active Protocol: Document 03/30/21 12:51 LRN (Rec: 03/30/21 13:35 LRN [id number]) Hip Goniometric Range of Motion Hip Right Passive Internal Rotation 40 External Rotation 75 Left Passive Internal Rotation 35 External Rotation 90 PT-OP-M Strength Start: 01/11/21 17:54 Freq: Status: Active Protocol: Document 01/19/21 09:54 LRN (Rec: 01/19/21 11:00 LRN [id number]) Trunk Strength Trunk Manual Muscle Testing Core Stabilization Loss of core control with MMT of R hip flexor & arben hip AB & Ext (pelvis R rotates) Hip Strength Hip Manual Muscle Testing Right Comments Generally 5/5 Left Comments Generally 5/5 PT-OP-T Assessment and Plan Start: 01/11/21 17:54 Freq: Status: Active Protocol: Document 07/20/21 08:43 LRN (Rec: 07/20/21 08:51 LRN [id number]) Physical Therapy Assessment Goals Four Impairment 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 (02/23/21: Leaking 1x/day ). 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 (02/23/21: Occurred x 1 and notices less onset with squatting, but leaks noticeably more with period) LTG Duration 04/19/21 (02/23/21: Progressing) Three Impairment Urinary leakage with lifting. Short Term Goal (STG) Increase PF strength of anterior and L wall to 3/5. STG Duration 02/23/21 (07/20/21: Pt unavailable for final assessment) Truck Spotter Goal (LTG) Improve Long hold PF strength to 10 secs hold or no leakage with lifting of dogs into car. (02/23/21: Leaks when having period, otherwise doesn't). LTG Duration 04/19/21 (02/23/21: Improved) Two Impairment Urinary leakage with coughing Short Term Goal (STG) Improve Quick Flick PF strength to 5x before fatigue STG Duration 02/23/21 (07/20/21: Pt unavailable for final assessment) Truck Spotter Goal (LTG) Improve Quick Flick PF strength (>5x before fatigue) or no leakage with controlled cough. LTG Duration 04/19/21 (07/20/21: Pt unavailable for final assessment) One Impairment HEP Short Term Goal (STG) Pt will be educated in proper abdominal care of Rectus abdominis and proper Kegel exercise. (02/09/21: Educated pt in care of DR 02/23/21: Pt able to do Kegel with improved coordination with TA) STG Duration 02/02/21 (02/23/21: MET GOAL) Intermediate Goal (LTG) Pt independent in a self care HEP of PF and core strengthening and hip ROM exercises. (02/23/21: Added LE hip flexor stretch & L sided PF strengthening with BKFO). LTG Duration 04/19/21 (07/20/21: NOT MET GOAL. Pt started on HEP) Assessment Summary Assessment Pt was last seen ~4 months ago on 03/30/21. Overall she had made improvement in her pelvic floor strength (rated 3/5) and was finding leakage most noteably present when she was on her period. The pt did not achieve all her goals and a final assessment was not able to be performed. She cancelled her last 2 remaining appointments with no follow up visits made; therefore the pt will be discharged from therapy due to lack of attendance. Physical Therapy Plan Discharge Physical Therapy Discharge Reasons No Longer Attending PT Discharge Comments Thank you for your referral.
== END 2021-08-07 09:26 ==
LOC: PHYS 12:45
PROVIDERS: Family Provider Family Medicine; PCP Family Medicine; Referring Provider Specialist; Visit Provider Specialist
DX: N81.9 Female genital prolapse, unspecified (principal); R32 Unspecified urinary incontinence; N81.10 Cystocele, unspecified; M62.81 Muscle weakness (generalized); M25.659 Stiffness of unspecified hip, not elsewhere classified
CPT/HCPCS: 97110; 97112; 97140; 97161; 97530; 97535

== ENCOUNTER → 2023-02-28 06:32 | Outpatient (CLI) | payer BC, SELFPAY ==
--- NOTE | 2023-02-28 | DI.CT.S_ITS ---
PROCEDURE: CT ABDOMEN PELVIS W CON INDICATIONS: Lower abdominal pain TECHNIQUE: After the administration of oral and intravenous contrast, axial sections were acquired from the lung bases to the pubic symphysis. Coronal and sagittal reformats were performed. For radiation dose reduction, the following was used: automated exposure control, adjustment of mA and/or kV according to patient size. COMPARISON:None. FINDINGS: Image quality: Excellent. Lung bases: Unremarkable. Heart: No significant findings. ABDOMEN: Liver: The liver is diffusely hypodense suggesting fatty infiltration. Gallbladder: Unremarkable. Biliary ducts: Unremarkable. Pancreas: Unremarkable. Spleen: The spleen measures 13.1 cm in length. Adrenal Glands: Unremarkable. Kidneys and Ureters: Unremarkable. Stomach and Bowel: Stomach, small bowel loops, and colon are unremarkable. The appendix is not visualized; however surgical clips are present in the region of the cecum in the lower quadrant suggesting prior appendectomy. Peritoneum: No abnormal intraperitoneal fluid. No free air. Ventral Wall: No hernia. Abdominal Nodes: No retroperitoneal or mesenteric adenopathy by size criteria. Vessels: Aorta and inferior vena cava are normal in size. PELVIS: Pelvic Organs: Unremarkable. Bladder: Unremarkable. Pelvic Nodes: No enlarged lymph nodes. Miscellaneous: No inguinal hernias are seen. Bones: Unremarkable. IMPRESSION: 1. Hepatic steatosis. 2. Mild splenomegaly which may be associated with fatty liver disease. Dictated by: Pushpa Carlos M.D. on 02/28/2023 at 10:19 Approved by: Pushpa Carlos M.D. on 02/28/2023 at 10:22
== END ==
PROVIDERS: Family Provider Family Medicine; PCP Family Medicine; Referring Provider Family Medicine; Visit Provider Family Medicine
DX: K76.0 Fatty (change of) liver, not elsewhere classified (principal); R10.30 Lower abdominal pain, unspecified; R16.1 Splenomegaly, not elsewhere classified
CPT/HCPCS: 74177; Q9967

== ENCOUNTER 2024-02-15 18:41 | Emergency (ER) | payer BC, SELFPAY ==
[2024-02-15 19:12] VITALS: BP 175/109; PULSE 100; RESP 18; TEMP 37; O2SAT 98; BMI 41.5
--- NOTE | 2024-02-15 19:20 | DI.RAD.S_ITS ---
PROCEDURE: XR FINGER RT MIN 2V INDICATIONS: cut with mandolin TECHNIQUE: AP hand, 2 views of the 1st finger(s) acquired. COMPARISON: None. FINDINGS: Bones: No fractures or dislocations. No suspicious bony lesions. Soft tissues: Soft tissues obscured by overlying bandage. IMPRESSION: No acute bony abnormality. Dictated by: Adrian Acevedo M.D. on 02/15/2024 at 19:58 Approved by: Adrian Acevedo M.D. on 02/15/2024 at 19:59
[2024-02-15] MEDS: OXYCODONE IR 5 MG TABLET PO (19:26)
[2024-02-15 22:03] VITALS: PULSE 83; O2SAT 98
[2024-02-15 22:04] VITALS: BP 146/75
--- NOTE | 2024-02-15 22:20 | ED.UPPEXIN ---
HPI - Extremity Injury (Upper) General Chief Complaint: Extremity Injury, Upper Stated Complaint: cut right thumb Time Seen by Provider: 02/15/24 22:01 Source: patient Mode of arrival: Ambulatory History of Present Illness HPI narrative: 43yoF presents for thumb injury. Sliced tip of thumb with mandolin while making willie slaw Related Data Home Medications Medication Instructions Recorded Confirmed methylphenidate HCl 54 mg 54 mg PO QDAY ##0 03/03/17 12/15/20 tablet,extended release 24 hr hydrochlorothiazide 12.5 mg tablet 12.5 mg PO DAILY 12/15/20 12/15/20 losartan 25 mg tablet 25 mg PO DAILY 12/15/20 12/15/20 sertraline 100 mg tablet 100 mg PO DAILY 12/15/20 12/15/20 Previous Rx's Medication Instructions Recorded norethindrone (contraceptive) 0.35 See Rx Instructions .Route 11/07/22 mg tablet .COMPLEX #28 tabs Allergies Allergy/AdvReac Type Severity Reaction Status Date / Time Sulfa (Sulfonamide Allergy Unknown Verified 12/15/20 15:04 Antibiotics) [SULFA (SULFONAMIDE ANTIBIOTICS)] Patient History Social History Smoking Status: Never smoker Smoking Status: Never smoker Substance Use Type: does not use Exam Initial Vital Signs Initial Vital Signs: Vital Signs Temperature 98.6 F 02/15/24 19:12 Pulse Rate 100 H 02/15/24 19:12 Respiratory Rate 18 02/15/24 19:12 Blood Pressure 175/109 H 02/15/24 19:12 Pulse Oximetry 98 02/15/24 19:12 Oxygen Delivery Method Room Air 02/15/24 19:12 Const: Awake, alert, no acute distress, nontoxic appearing Skin: 0.5x1cm elliptical avulsion laceration over tip of thumb Neuro: AO x3, CN II-XII grossly intact, moves all extremities Procedures Nerve Block Nerve Block 1: Local Anesthetic: lidocaine 1% Amount of anesthesia used (mL): 3 Side: right Nerve Blocks: digital Procedure Successful: Yes Patient Tolerated Procedure: No complications Complications: none Course Orders Ordered: ED Orders 02/15/24 19:20 XR finger RT min 2V Stat Discontinued Medications Lidocaine HCl (Lidocaine 1% 20 Ml) 20 ml INJ INTRA-OP ONE Stop: 02/15/24 22:21 Last Admin: 02/15/24 22:32 Dose: Not Given Documented By: AB Oxycodone HCl (Oxycodone Ir 5 Mg Tablet) 5 mg PO NOW ONE Stop: 02/15/24 19:25 Last Admin: 02/15/24 19:26 Dose: 5 mg Documented By: RB Vital Signs Vital signs: Vital Signs - 8 hr 02/15/24 22:03 02/15/24 22:04 Pulse Rate 83 Blood Pressure 146/75 H Pulse Oximetry 98 MDM - Extremity Injury (Upper) MDM Narrative Medical decision making narrative: Avulsion laceration of distal tip of thumb from mandoline. The wound is superficial and not amenable to sutures. Pain controlled with a digital block. There is a small venous bleed coming from the laceration. A gauze soaked with lidocaine and epinephrine applied to the tip of the finger with good blood control. Placed in clean dry bandage. Wound care instructions discussed with the patient Discharge Plan Departure Patient Disposition: Home Clinical Impression: Finger laceration Instructions: DI for Avulsion Laceration (Not Requiring Sutures) Activity Restrictions/Additional Instructions: Keep the wound clean and dry. If you get it wet or dirty wash it with clean dry water. Take Tylenol and ibuprofen as needed for pain. Prescriptions: No Action methylphenidate HCl 54 MG tablet extended release 24hr 54 mg PO QDAY Qty: 0 norethindrone (contraceptive) 0.35 mg tablet See Rx Instructions .ROUTE .COMPLEX Qty: 28 11RF Dose Instruction: Take 1 tablet by mouth daily for painful menses Rx Instructions: Take 1 tablet by mouth daily for painful menses losartan 25 mg tablet 25 mg PO DAILY hydrochlorothiazide 12.5 mg tablet 12.5 mg PO DAILY sertraline 100 mg tablet 100 mg PO DAILY Referrals: Guanaco Chauhan MD [Primary Care Provider] - Stand Alone Forms: Patient Portal/API
[2024-02-15] MEDS: LIDOCAINE 1% 20 ML (22:33)
--- NOTE | 2024-02-15 22:59 | PC.NURSE ---
Telfa, and 02/24inch gauze twist wrap completed. CMS checks and at home supplies given to pt at this time.
== END 2024-02-15 22:57 | disposition home or self-care (01) ==
PROVIDERS: Emergency Provider Emergency Medicine; Family Provider Family Medicine; PCP Family Medicine
DX: S61.011A Laceration without foreign body of right thumb without damage to nail, initial encounter (principal); W45.8XXA Other foreign body or object entering through skin, initial encounter; W26.8XXA Contact with other sharp object(s), not elsewhere classified, initial encounter; Y93.G3 Activity, cooking and baking
CPT/HCPCS: 64450; 73140; 99283

== ENCOUNTER 2024-02-24 08:15 | Outpatient (RCR) | payer BC, SELFPAY ==
--- NOTE | 2023-07-01 16:00 | PT.OIE ---
Current Diagnoses Stress incontinence (female) (male) (07/01/23) Pelvic muscle wasting (07/01/23) Pelvic and perineal pain (07/01/23) Weakness (07/01/23) Visit Care Team Role Provider Type Guanaco Chauhan MD Family Provider Non-Staff Primary Care Provider Specialty: Medical Address: [address] [facility], [place], [address] Email: Lito Marcos MD Attending Provider Non-Staff Referring Provider Specialty: UNDERWEAR WELTER Address: [address] [place] [address], [address], [address] Email: Physical Therapy Initial Evaluation PT-OP-A Visit Information Start: 07/01/23 08:16 Freq: Status: Active Protocol: Document 07/01/23 14:59 [facility] (Rec: 07/01/23 15:23 [facility] [id number]) Out-Patient Physical Therapy Visit Information Visit Information Visit Type Initial Evaluation Visit Start Time 15:00 Visit Stop Time 15:45 Total Visit Minutes 45 Visit Number 1 Evaluation Information Evaluation Date 07/01/23 PT-OP-B Current Condition Start: 07/01/23 08:16 Freq: Status: Active Protocol: Document 07/01/23 15:00 [facility] (Rec: 07/01/23 15:23 [facility] [id number]) Current Condition History of Current Condition Current Complaints pelvic pain History of Current Condition pt was here a coupble of years ago with incontinence issues, she then had a hysterectomy due to tumors in October. November 04 was date of surgery SHe was doing good up until 10 weeks but then she started to get more pain. 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 Her daughter is 11.5 years old SHe feels very weak in her pelvic floor now and her hips feel weak. Her leakage is less now compared to before. She still doesn't trust her self and with quick steps becuase she doesn't want to leak. Now only occasional leakage when she picks up her dog. PElvic floor pain is like a 2/10 in general but if she does something like trim a hedge she has more pain PT-OP-C Subjective Start: 07/01/23 08:16 Freq: Status: Active Protocol: Document 07/01/23 15:00 [facility] (Rec: 07/02/23 13:16 [facility] [id number]) Patient Questionnaires Pelvic Pain and Urgency/Frequency Patient Symptom Scale Pelvic Pain Score 8 OP-PT Pain Assessment Pain Assessment Grid Paper Pain Assessment Grid Completed Yes Location central low back pain Pain Location Details central low back pain Intensity 6 Scale Used Numeric (0 - 10) Description- Other worse with lifting activities Frequency Daily lateral hips Pain Location Details Lateral hips B Intensity 3 Scale Used Numeric (0 - 10) Description- Other pt notes she will fatigue in her lateral hips and then annoying pain beingi Frequency Frequent PT-OP-I Pelvic Floor Start: 07/01/23 08:16 Freq: Status: Active Protocol: Document 07/01/23 15:23 [facility] (Rec: 07/01/23 16:04 [facility] [id number]) Pelvic Floor Assessment Urine Pelvic Floor Surgery Yes: Full hysterectomy Leakage Size Small Leakage Cause Cough,Exercise,Lifting,Sneeze Leaks Per Day 1 Voiding Frequency 6+ Nocturia 1-3 xms per night Pelvic Clock Pelvic Clock 12-3 Atrophy Pelvic Clock 3-6 Guarding,Tenderness Pelvic Clock Other left sided pelvic floor guarding , scar tissue noted at the perineum with tightness on the left side, tightness into the left transverse perienum that reproduces pain when palpated Perineal Descent Resting Present Contraction Ability Voluntary Contraction Weak Voluntary Relaxation Weak Manual Muscle Testing Left 0 Manual Muscle Testing Right 2 Manual Muscle Testing Anterior 1 Manual Muscle Testing Posterior 2 Comments Pelvic Floor Comments Left side lateral wall of the pelvic floor is guarded at rest and pt has difficulty both with contraction as well as relazation on the left lateral wall. No palpable contraction noted on the left lateral wall with today's exam PT-OP-J Posture/Palpation/Skin Start: 07/01/23 08:16 Freq: Status: Active Protocol: Document 07/01/23 15:00 [facility] (Rec: 07/02/23 13:21 [facility] [id number]) Palpation Assessment Location abdominal wall Palpation Findings Soft Tissue Tightness Palpation Details palpation over the abdominal wall reveals soft tissue tightness and distension on the belly, little to know scar tissue present to palpation over the laproscopy incisions of hysterectomy PT-OP-M Strength Start: 07/01/23 08:16 Freq: Status: Active Protocol: Document 07/01/23 15:00 [facility] (Rec: 07/02/23 13:22 [facility] [id number]) Trunk Strength Trunk Manual Muscle Testing Testing Position Supine Flexion 3 Fair Core Stabilization decreased ability to contract and sustain a contraction of the transverse abdominal wall in supine PT-OP-Q Treatments Start: 07/01/23 08:16 Freq: Status: Active Protocol: Document 07/01/23 16:29 [facility] (Rec: 07/01/23 16:31 [facility] [id number]) Therapeutic Exercises Supine Exercises supine TA with march Reps/Minutes x 10 reps piriformis stretch Reps/Minutes hold 1-2 min modified pelvic floor squat Reps/Minutes hold 1-2 min happy baby Reps/Minutes hold 1-2 min pelvic floor long holds Reps/Minutes 10 reps holding 10 seconds PT-OP-T Assessment and Plan Start: 07/01/23 08:16 Freq: Status: Active Protocol: Document 07/01/23 15:00 [facility] (Rec: 07/02/23 13:26 [facility] [id number]) Physical Therapy Assessment Rehab Potential Rehabilitation Potential Excellent Evaluation Complexity Number of Personal Factors/Comorbidities 0 Number of Body Systems Impaired 1-2 Clinical Presentation at Evaluation Stable Impairments Impairments Activity Tolerance,Functional Activities,Pain,Soft Tissue Mobility,Strength Goals 3 Impairment Urinary leakage with strong cough or sneeze or with exercise Short Term Goal (STG) Marcy is educated in a HEP for pelvic floor strengthening Longterm Goal (LTG) Marcy reports a overall reduction in urinary stress incontinence symptoms LTG Duration 12 weeks 2 Impairment pelvic pain rated 3/10 and low back pain rated 6/10 Transmission Repairer Goal (LTG) With manual therapy techniques and stretches Marcy reports a reduction in pelvic pain to 1 or less and with improved core support Marcy reports a reduction in her LBP from 6/10 to 4 or less LTG Duration 12 weeks 1 Impairment Pelvic Floor weakness Short Term Goal (STG) Marcy is educated on pelvic floor recruitment and relaxation STG Duration 4 weeks Longterm Goal (LTG) Marcy shows a increase in pelvic floor strength for improved support of her bladder by at least 1 muscle grade LTG Duration 12 weeks Assessment Summary Assessment Marcy is a 43 year old female who is s/p total hysterectomy November 04 2022 referred to PT with both pelvic pain as well as pelvic floor weakness and leakage. Marcy underwent a hysterectomy due to a tumor that was benign. Prior to her surgery she was experiencing a great amount of urinary leakage. She notes the leakage has improved since surgery but she would like to strengthen to be able to do things like play soccer with her daughter without feeling that she is going to leak. She also notes the weakness causes her to hurt in her lower back and hips and she feels weak throughout her core muscles. With exam today Marcy tests 1/5 MMT for her anterior wall of the levator ani, 2/5 MMT for the right and posterior pagan and 0/5 for the left wall. She is guarded on the left lateral wall and I am unable to have her elicit a contraction most likely because her muscles are tight and guarded. With palpation on the left lateral wall as well as the left external transverse perineal muscle I am able to reproduce the pelvic pain she feels. Soniya presents with weakness throughout her lower abdominal muscles. Treatment will work on relaxed awareness of the levator ani with emphasis on the left side using both manual therapy techniques as well as EMG biofeedback. We will then progress to strengthening for improve tone and strength of the pelvic floor and lower abdominal wall . Physical Therapy Plan Frequency and Duration Frequency of Treatment 1x/Week Duration of treatment (weeks) 12 Plan of Care Start Date 07/01/23 Plan of Care End Date 09/23/23 Therapeutic Interventions Therapeutic Interventions Home Exercise Program,Manual Therapy,Neuromuscular Re- education,Patient/Caregiver Education,Self-Care/Home Management,Soft Tissue Mobilization,Therapeutic Exercises Modalities Biofeedback Next Visit Focus/Plan Next Note Type Treatment Note Next Visit Plan review stretches for the pelvic floor and begin EMG biofeedback for pelvic floor downtraining as well as pelvic floor facilitation, begin quadruped TA engagement
--- NOTE | 2023-07-01 16:00 | PT.OPPOC ---
Physical, Occupational & Speech Therapy At [facility] Current Diagnoses Stress incontinence (female) (male) (07/01/23) Pelvic muscle wasting (07/01/23) Pelvic and perineal pain (07/01/23) Weakness (07/01/23) Visit Care Team Role Provider Type Guanaco Chauhan MD Family Provider Non-Staff Primary Care Provider Specialty: Medical Address: [address] [place] [address], [address] Email: Lito Marcos MD Attending Provider Non-Staff Referring Provider Specialty: DIFFERENTIAL TESTER Address: [address] [place] [address], [address], [address] Email: Plan Of Care PT-OP-T Assessment and Plan Start: 07/01/23 08:16 Freq: Status: Active Protocol: Document 07/01/23 15:00 [facility] (Rec: 07/02/23 13:26 [facility] [id number]) Physical Therapy Assessment Rehab Potential Rehabilitation Potential Excellent Evaluation Complexity Number of Personal Factors/Comorbidities 0 Number of Body Systems Impaired 1-2 Clinical Presentation at Evaluation Stable Impairments Impairments Activity Tolerance,Functional Activities,Pain,Soft Tissue Mobility,Strength Goals 3 Impairment Urinary leakage with strong cough or sneeze or with exercise Short Term Goal (STG) Marcy is educated in a HEP for pelvic floor strengthening Home Health Aide Goal (LTG) Marcy reports a overall reduction in urinary stress incontinence symptoms LTG Duration 12 weeks 2 Impairment pelvic pain rated 3/10 and low back pain rated 6/10 Home Health Aide Goal (LTG) With manual therapy techniques and stretches Marcy reports a reduction in pelvic pain to 1 or less and with improved core support Marcy reports a reduction in her LBP from 6/10 to 4 or less LTG Duration 12 weeks 1 Impairment Pelvic Floor weakness Short Term Goal (STG) Marcy is educated on pelvic floor recruitment and relaxation STG Duration 4 weeks Home Health Aide Goal (LTG) Marcy shows a increase in pelvic floor strength for improved support of her bladder by at least 1 muscle grade LTG Duration 12 weeks Assessment Summary Assessment Marcy is a 43 year old female who is s/p total hysterectomy November 04 2022 referred to PT with both pelvic pain as well as pelvic floor weakness and leakage. Marcy underwent a hysterectomy due to a tumor that was benign. Prior to her surgery she was experiencing a great amount of urinary leakage. She notes the leakage has improved since surgery but she would like to strengthen to be able to do things like play soccer with her daughter without feeling that she is going to leak. She also notes the weakness causes her to hurt in her lower back and hips and she feels weak throughout her core muscles. With exam today Marcy tests 1/5 MMT for her anterior wall of the levator ani, 2/5 MMT for the right and posterior pagan and 0/5 for the left wall. She is guarded on the left lateral wall and I am unable to have her elicit a contraction most likely because her muscles are tight and guarded. With palpation on the left lateral wall as well as the left external transverse perineal muscle I am able to reproduce the pelvic pain she feels. Soniya presents with weakness throughout her lower abdominal muscles. Treatment will work on relaxed awareness of the levator ani with emphasis on the left side using both manual therapy techniques as well as EMG biofeedback. We will then progress to strengthening for improve tone and strength of the pelvic floor and lower abdominal wall . Physical Therapy Plan Frequency and Duration Frequency of Treatment 1x/Week Duration of treatment (weeks) 12 Plan of Care Start Date 07/01/23 Plan of Care End Date 09/23/23 Therapeutic Interventions Therapeutic Interventions Home Exercise Program,Manual Therapy,Neuromuscular Re- education,Patient/Caregiver Education,Self-Care/Home Management,Soft Tissue Mobilization,Therapeutic Exercises Modalities Biofeedback Next Visit Focus/Plan Next Note Type Treatment Note Next Visit Plan review stretches for the pelvic floor and begin EMG biofeedback for pelvic floor downtraining as well as pelvic floor facilitation, begin quadruped TA engagement Plan of Care Dates Plan of Care Start Date 07/01/23 Plan of Care End Date 09/23/23 Electronically Signed by: Onelia Griffith, PT 07/03/23 [id number] If you are in agreement with this Plan of Care, please return a signed and dated copy. I have reviewed this Plan of Care and certify that the skilled therapy services above are required to meet the patient?s needs. Physician Signature Date Printed Name and Credentials Clinical Instructor Signature Printed Name and Credentials
--- NOTE | 2023-07-08 16:05 | PT.OTN ---
Current Diagnoses Stress incontinence (female) (male) (07/08/23) Pelvic muscle wasting (07/08/23) Pelvic and perineal pain (07/08/23) Weakness (07/08/23) Physical Therapy Treatment Note PT-OP-A Visit Information Start: 07/01/23 08:16 Freq: Status: Active Protocol: Document 07/08/23 15:00 [facility] (Rec: 07/08/23 16:04 [facility] [id number]) Out-Patient Physical Therapy Visit Information Visit Information Visit Type Treatment Note Visit Start Time 15:00 Visit Stop Time 15:45 Total Visit Minutes 45 Visit Number 2 PT-OP-B Current Condition Start: 07/01/23 08:16 Freq: Status: Active Protocol: Document 07/01/23 15:00 [facility] (Rec: 07/01/23 15:23 [facility] [id number]) Current Condition History of Current Condition Current Complaints pelvic pain History of Current Condition pt was here a coupble of years ago with incontinence issues, she then had a hysterectomy due to tumors in October. November 04 was date of surgery SHe was doing good up until 10 weeks but then she started to get more pain. 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 Her daughter is 11.5 years old SHe feels very weak in her pelvic floor now and her hips feel weak. Her leakage is less now compared to before. She still doesn't trust her self and with quick steps becuase she doesn't want to leak. Now only occasional leakage when she picks up her dog. PElvic floor pain is like a 2/10 in general but if she does something like trim a hedge she has more pain PT-OP-C Subjective Start: 07/01/23 08:16 Freq: Status: Active Protocol: Document 07/08/23 15:00 [facility] (Rec: 07/08/23 16:04 [facility] [id number]) OP-PT Subjective Patient Comments Patient Comments tries working on her letting go with voiding. SHe feels pain on the inner ischium when she is sitting. PT-OP-I Pelvic Floor Start: 07/01/23 08:16 Freq: Status: Active Protocol: Document 07/01/23 15:23 [facility] (Rec: 07/01/23 16:04 [facility] [id number]) Pelvic Floor Assessment Urine Pelvic Floor Surgery Yes: Full hysterectomy Leakage Size Small Leakage Cause Cough,Exercise,Lifting,Sneeze Leaks Per Day 1 Voiding Frequency 6+ Nocturia 1-3 xms per night Pelvic Clock Pelvic Clock 12-3 Atrophy Pelvic Clock 3-6 Guarding,Tenderness Pelvic Clock Other left sided pelvic floor guarding , scar tissue noted at the perineum with tightness on the left side, tightness into the left transverse perienum that reproduces pain when palpated Perineal Descent Resting Present Contraction Ability Voluntary Contraction Weak Voluntary Relaxation Weak Manual Muscle Testing Left 0 Manual Muscle Testing Right 2 Manual Muscle Testing Anterior 1 Manual Muscle Testing Posterior 2 Comments Pelvic Floor Comments Left side lateral wall of the pelvic floor is guarded at rest and pt has difficulty both with contraction as well as relazation on the left lateral wall. No palpable contraction noted on the left lateral wall with today's exam PT-OP-J Posture/Palpation/Skin Start: 07/01/23 08:16 Freq: Status: Active Protocol: Document 07/01/23 15:00 [facility] (Rec: 07/02/23 13:21 [facility] [id number]) Palpation Assessment Location abdominal wall Palpation Findings Soft Tissue Tightness Palpation Details palpation over the abdominal wall reveals soft tissue tightness and distension on the belly, little to know scar tissue present to palpation over the laproscopy incisions of hysterectomy PT-OP-M Strength Start: 07/01/23 08:16 Freq: Status: Active Protocol: Document 07/01/23 15:00 [facility] (Rec: 07/02/23 13:22 [facility] [id number]) Trunk Strength Trunk Manual Muscle Testing Testing Position Supine Flexion 3 Fair Core Stabilization decreased ability to contract and sustain a contraction of the transverse abdominal wall in supine PT-OP-Q Treatments Start: 07/01/23 08:16 Freq: Status: Active Protocol: Document 07/08/23 15:00 [facility] (Rec: 07/08/23 16:04 [facility] [id number]) Therapeutic Exercises Supine Exercises ball squeeze with pelvic floor contractions Reps/Minutes x 10 reps modified pelvic floor squat Reps/Minutes hold 1-2 min pelvic floor long holds Reps/Minutes 10 reps holding 10 seconds Comments average 14.5 max is a 30 Other Exercises standing active hamstring stretch Reps/Minutes x 10 reps Manual Therapy Treatment Soft Tissue Mobilization left sided levator ani MFR Body Position Hooklying Comments very guarded and tender left side adductor release on the left Body Location left sided adductor release Comments very sore left sided adductors and tight at the proximal attachment left sided obturator internus release Comments left side very guarded and tender PT-OP-T Assessment and Plan Start: 07/01/23 08:16 Freq: Status: Active Protocol: Document 07/08/23 15:00 [facility] (Rec: 07/08/23 16:04 [facility] [id number]) Physical Therapy Assessment Assessment Summary Assessment resting tone 15 but able to relax to 7 after contractions. After ball squeeze Marcy was able to relax to 5 uv. Gave her dynamic hamstring active stretches to help with symptoms of pundendal nerve irritation Physical Therapy Plan Frequency and Duration Frequency of Treatment 1x/Week Duration of treatment (weeks) 12 Plan of Care Start Date 07/01/23 Plan of Care End Date 09/23/23 Next Visit Focus/Plan Next Note Type Treatment Note Next Visit Plan continue EMG biofeedback, progress stretches to open up at the ischium. Trial of isidro pose next visit
--- NOTE | 2023-08-05 16:05 | PT.OTN ---
Current Diagnoses Stress incontinence (female) (male) (08/05/23) Pelvic muscle wasting (08/05/23) Pelvic and perineal pain (08/05/23) Weakness (08/05/23) Physical Therapy Treatment Note PT-OP-A Visit Information Start: 07/01/23 08:16 Freq: Status: Active Protocol: Document 08/05/23 15:00 [facility] (Rec: 08/05/23 16:04 [facility] [id number]) Out-Patient Physical Therapy Visit Information Visit Information Visit Type Treatment Note Visit Start Time 15:00 Visit Stop Time 15:45 Total Visit Minutes 45 Visit Number 3 PT-OP-B Current Condition Start: 07/01/23 08:16 Freq: Status: Active Protocol: Document 07/01/23 15:00 [facility] (Rec: 07/01/23 15:23 [facility] [id number]) Current Condition History of Current Condition Current Complaints pelvic pain History of Current Condition pt was here a coupble of years ago with incontinence issues, she then had a hysterectomy due to tumors in October. November 04 was date of surgery SHe was doing good up until 10 weeks but then she started to get more pain. 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 Her daughter is 11.5 years old SHe feels very weak in her pelvic floor now and her hips feel weak. Her leakage is less now compared to before. She still doesn't trust her self and with quick steps becuase she doesn't want to leak. Now only occasional leakage when she picks up her dog. PElvic floor pain is like a 2/10 in general but if she does something like trim a hedge she has more pain PT-OP-C Subjective Start: 07/01/23 08:16 Freq: Status: Active Protocol: Document 08/05/23 15:00 [facility] (Rec: 08/05/23 16:04 [facility] [id number]) OP-PT Subjective Patient Comments Patient Comments she had a CE conference and then a drive back to [place] . She felt it was difficult to sit with legs together. She does note that pelvic floor strength is a little improved. PT-OP-I Pelvic Floor Start: 07/01/23 08:16 Freq: Status: Active Protocol: Document 07/01/23 15:23 [facility] (Rec: 07/01/23 16:04 [facility] [id number]) Pelvic Floor Assessment Urine Pelvic Floor Surgery Yes: Full hysterectomy Leakage Size Small Leakage Cause Cough,Exercise,Lifting,Sneeze Leaks Per Day 1 Voiding Frequency 6+ Nocturia 1-3 xms per night Pelvic Clock Pelvic Clock 12-3 Atrophy Pelvic Clock 3-6 Guarding,Tenderness Pelvic Clock Other left sided pelvic floor guarding , scar tissue noted at the perineum with tightness on the left side, tightness into the left transverse perienum that reproduces pain when palpated Perineal Descent Resting Present Contraction Ability Voluntary Contraction Weak Voluntary Relaxation Weak Manual Muscle Testing Left 0 Manual Muscle Testing Right 2 Manual Muscle Testing Anterior 1 Manual Muscle Testing Posterior 2 Comments Pelvic Floor Comments Left side lateral wall of the pelvic floor is guarded at rest and pt has difficulty both with contraction as well as relazation on the left lateral wall. No palpable contraction noted on the left lateral wall with today's exam PT-OP-J Posture/Palpation/Skin Start: 07/01/23 08:16 Freq: Status: Active Protocol: Document 07/01/23 15:00 [facility] (Rec: 07/02/23 13:21 [facility] [id number]) Palpation Assessment Location abdominal wall Palpation Findings Soft Tissue Tightness Palpation Details palpation over the abdominal wall reveals soft tissue tightness and distension on the belly, little to know scar tissue present to palpation over the laproscopy incisions of hysterectomy PT-OP-M Strength Start: 07/01/23 08:16 Freq: Status: Active Protocol: Document 07/01/23 15:00 [facility] (Rec: 07/02/23 13:22 [facility] [id number]) Trunk Strength Trunk Manual Muscle Testing Testing Position Supine Flexion 3 Fair Core Stabilization decreased ability to contract and sustain a contraction of the transverse abdominal wall in supine PT-OP-Q Treatments Start: 07/01/23 08:16 Freq: Status: Active Protocol: Document 08/05/23 15:00 [facility] (Rec: 08/05/23 16:04 [facility] [id number]) Therapeutic Exercises Supine Exercises ball squeeze with pelvic floor contractions Reps/Minutes x 10 reps modified pelvic floor squat Reps/Minutes hold 1-2 min happy baby Reps/Minutes hold 1-2 min Sidelying Exercises sidelying hip circles Reps/Minutes 2 x 10 reps clam shells Reps/Minutes 2 x 10 reps Other Exercises TA engagement with opp arm lifts Reps/Minutes x 10 reps quadruped TA Reps/Minutes x 10 isidro pose Reps/Minutes 1-2 min Comments cues to open up at the sitting bones to relax the pelvic floor Manual Therapy Treatment Soft Tissue Mobilization left sided levator ani MFR Comments pt is showing improvement and she is not as guarded on the left side. She has a easier time relaxing her pelvic floor . PT-OP-T Assessment and Plan Start: 07/01/23 08:16 Freq: Status: Active Protocol: Document 08/05/23 15:00 [facility] (Rec: 08/05/23 16:04 [facility] [id number]) Physical Therapy Assessment Assessment Summary Assessment with manual exam today of Marcy' s pelvic floor the left lateral wall is still guarded but she is better able to relax after a contraction. I Did do some manual work releasing the left lateral wall and she tolerated this well. I was able to add in lateral hip and TA stabilization with good tolerance Physical Therapy Plan Frequency and Duration Frequency of Treatment 1x/Week Duration of treatment (weeks) 12 Plan of Care Start Date 07/01/23 Plan of Care End Date 09/23/23 Next Visit Focus/Plan Next Note Type Treatment Note Next Visit Plan review next exercises next visit and progress abdominal stabilization
--- NOTE | 2023-08-19 08:20 | PT.OTN ---
Current Diagnoses Stress incontinence (female) (male) (08/19/23) Pelvic muscle wasting (08/19/23) Pelvic and perineal pain (08/19/23) Weakness (08/19/23) Physical Therapy Treatment Note PT-OP-A Visit Information Start: 07/01/23 08:16 Freq: Status: Active Protocol: Document 08/19/23 08:50 [facility] (Rec: 08/19/23 09:30 [facility] [id number]) Out-Patient Physical Therapy Visit Information Visit Information Visit Type Treatment Note Visit Start Time 08:50 Visit Stop Time 09:30 Total Visit Minutes 40 Visit Number 4 PT-OP-B Current Condition Start: 07/01/23 08:16 Freq: Status: Active Protocol: Document 07/01/23 15:00 [facility] (Rec: 07/01/23 15:23 [facility] [id number]) Current Condition History of Current Condition Current Complaints pelvic pain History of Current Condition pt was here a coupble of years ago with incontinence issues, she then had a hysterectomy due to tumors in October. November 04 was date of surgery SHe was doing good up until 10 weeks but then she started to get more pain. 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 Her daughter is 11.5 years old SHe feels very weak in her pelvic floor now and her hips feel weak. Her leakage is less now compared to before. She still doesn't trust her self and with quick steps becuase she doesn't want to leak. Now only occasional leakage when she picks up her dog. PElvic floor pain is like a 2/10 in general but if she does something like trim a hedge she has more pain PT-OP-C Subjective Start: 07/01/23 08:16 Freq: Status: Active Protocol: Document 08/19/23 08:50 [facility] (Rec: 08/19/23 09:30 [facility] [id number]) OP-PT Subjective Patient Comments Patient Comments Marcy notes she has been able to work on her pelvic floor without increased pain. She would like to get to the point to be able to run and play soccer without leaking. She is struggling with the 10 sec holds. Pain is decreased and back pain is overall better PT-OP-I Pelvic Floor Start: 07/01/23 08:16 Freq: Status: Active Protocol: Document 07/01/23 15:23 [facility] (Rec: 07/01/23 16:04 [facility] [id number]) Pelvic Floor Assessment Urine Pelvic Floor Surgery Yes: Full hysterectomy Leakage Size Small Leakage Cause Cough,Exercise,Lifting,Sneeze Leaks Per Day 1 Voiding Frequency 6+ Nocturia 1-3 xms per night Pelvic Clock Pelvic Clock 12-3 Atrophy Pelvic Clock 3-6 Guarding,Tenderness Pelvic Clock Other left sided pelvic floor guarding , scar tissue noted at the perineum with tightness on the left side, tightness into the left transverse perienum that reproduces pain when palpated Perineal Descent Resting Present Contraction Ability Voluntary Contraction Weak Voluntary Relaxation Weak Manual Muscle Testing Left 0 Manual Muscle Testing Right 2 Manual Muscle Testing Anterior 1 Manual Muscle Testing Posterior 2 Comments Pelvic Floor Comments Left side lateral wall of the pelvic floor is guarded at rest and pt has difficulty both with contraction as well as relazation on the left lateral wall. No palpable contraction noted on the left lateral wall with today's exam PT-OP-J Posture/Palpation/Skin Start: 07/01/23 08:16 Freq: Status: Active Protocol: Document 07/01/23 15:00 [facility] (Rec: 07/02/23 13:21 [facility] [id number]) Palpation Assessment Location abdominal wall Palpation Findings Soft Tissue Tightness Palpation Details palpation over the abdominal wall reveals soft tissue tightness and distension on the belly, little to know scar tissue present to palpation over the laproscopy incisions of hysterectomy PT-OP-M Strength Start: 07/01/23 08:16 Freq: Status: Active Protocol: Document 07/01/23 15:00 [facility] (Rec: 07/02/23 13:22 [facility] [id number]) Trunk Strength Trunk Manual Muscle Testing Testing Position Supine Flexion 3 Fair Core Stabilization decreased ability to contract and sustain a contraction of the transverse abdominal wall in supine PT-OP-Q Treatments Start: 07/01/23 08:16 Freq: Status: Active Protocol: Document 08/19/23 08:50 [facility] (Rec: 08/19/23 09:30 [facility] [id number]) Therapeutic Exercises Supine Exercises pelvic floor quick contractions Reps/Minutes x 10 reps ball squeeze with pelvic floor contractions Reps/Minutes x 10 reps pelvic floor long holds Reps/Minutes 10 sec on 10 sec off Comments 18.9 uv average and 33.9uv max Sidelying Exercises clam shells Reps/Minutes 2 x 10 reps Neuro Re-Education Treatment Other Activities NMES for the pelvic floor with vaginal sensor Details NMES for the pelvic floor Reps/Duration 10 min Comments worked on NMES for improved sensation of pelvic floor contraction. Marcy felt like this helped her with facilitation of her pelvic floor Self-Care/Home Management Treatment Education Patient Education Home Exercise Program Other Education discussion of home program and stretches for pelvic pain PT-OP-T Assessment and Plan Start: 07/01/23 08:16 Freq: Status: Active Protocol: Document 08/19/23 08:50 [facility] (Rec: 08/19/23 09:30 [facility] [id number]) Physical Therapy Assessment Goals 3 Impairment Urinary leakage with strong cough or sneeze or with exercise Short Term Goal (STG) Marcy is educated in a HEP for pelvic floor strengthening Fdc Goal (LTG) Marcy reports a overall reduction in urinary stress incontinence symptoms LTG Duration 12 weeks 2 Impairment pelvic pain rated 3/10 and low back pain rated 6/10 Fdc Goal (LTG) With manual therapy techniques and stretches Marcy reports a reduction in pelvic pain to 1 or less and with improved core support Marcy reports a reduction in her LBP from 6/10 to 4 or less LTG Duration 12 weeks 1 Impairment Pelvic Floor weakness Short Term Goal (STG) Marcy is educated on pelvic floor recruitment and relaxation STG Duration 4 weeks Fdc Goal (LTG) Marcy shows a increase in pelvic floor strength for improved support of her bladder by at least 1 muscle grade LTG Duration 12 weeks Assessment Summary Assessment Marcy did much better today with EMG biofeedback after the NMES. She felt she could feel more of her pelvic floor and her average went up on EMG biofeedback. She is doing really well with her stretches and her pain levels have decreased. Physical Therapy Plan Frequency and Duration Frequency of Treatment 1x/Week Duration of treatment (weeks) 12 Plan of Care Start Date 07/01/23 Plan of Care End Date 09/23/23 Therapeutic Interventions Therapeutic Interventions Home Exercise Program,Manual Therapy,Neuromuscular Re- education,Patient/Caregiver Education,Self-Care/Home Management,Soft Tissue Mobilization,Therapeutic Exercises Modalities Biofeedback Next Visit Focus/Plan Next Visit Plan start with hands and knees with pelvic floor contractions next visit
--- NOTE | 2023-08-27 10:51 | PT.OTN ---
Current Diagnoses Stress incontinence (female) (male) (08/27/23) Pelvic muscle wasting (08/27/23) Pelvic and perineal pain (08/27/23) Weakness (08/27/23) Physical Therapy Treatment Note PT-OP-A Visit Information Start: 07/01/23 08:16 Freq: Status: Active Protocol: Document 08/27/23 08:00 [facility] (Rec: 08/27/23 10:51 [facility] [id number]) Out-Patient Physical Therapy Visit Information Visit Information Visit Type Treatment Note Visit Start Time 08:00 Visit Stop Time 08:50 Total Visit Minutes 50 Visit Number 5 PT-OP-B Current Condition Start: 07/01/23 08:16 Freq: Status: Active Protocol: Document 07/01/23 15:00 [facility] (Rec: 07/01/23 15:23 [facility] [id number]) Current Condition History of Current Condition Current Complaints pelvic pain History of Current Condition pt was here a couple of years ago with incontinence issues, she then had a hysterectomy due to tumors in October. November 04 was date of surgery SHe was doing good up until 10 weeks but then she started to get more pain. 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 Her daughter is 11.5 years old She feels very weak in her pelvic floor now and her hips feel weak. Her leakage is less now compared to before. She still doesn't trust her self and with quick steps because she doesn't want to leak. Now only occasional leakage when she picks up her dog. Pelvic floor pain is like a 2/10 in general but if she does something like trim a hedge she has more pain PT-OP-C Subjective Start: 07/01/23 08:16 Freq: Status: Active Protocol: Document 08/27/23 08:00 [facility] (Rec: 08/27/23 08:49 [facility] [id number]) OP-PT Subjective Patient Comments Patient Comments pt notes she was sore after the stim last visit but it only lasted just that day. PT-OP-I Pelvic Floor Start: 07/01/23 08:16 Freq: Status: Active Protocol: Document 07/01/23 15:23 [facility] (Rec: 07/01/23 16:04 [facility] [id number]) Pelvic Floor Assessment Urine Pelvic Floor Surgery Yes: Full hysterectomy Leakage Size Small Leakage Cause Cough,Exercise,Lifting,Sneeze Leaks Per Day 1 Voiding Frequency 6+ Nocturia 1-3 xms per night Pelvic Clock Pelvic Clock 12-3 Atrophy Pelvic Clock 3-6 Guarding,Tenderness Pelvic Clock Other left sided pelvic floor guarding , scar tissue noted at the perineum with tightness on the left side, tightness into the left transverse perienum that reproduces pain when palpated Perineal Descent Resting Present Contraction Ability Voluntary Contraction Weak Voluntary Relaxation Weak Manual Muscle Testing Left 0 Manual Muscle Testing Right 2 Manual Muscle Testing Anterior 1 Manual Muscle Testing Posterior 2 Comments Pelvic Floor Comments Left side lateral wall of the pelvic floor is guarded at rest and pt has difficulty both with contraction as well as relazation on the left lateral wall. No palpable contraction noted on the left lateral wall with today's exam PT-OP-J Posture/Palpation/Skin Start: 07/01/23 08:16 Freq: Status: Active Protocol: Document 07/01/23 15:00 [facility] (Rec: 07/02/23 13:21 [facility] [id number]) Palpation Assessment Location abdominal wall Palpation Findings Soft Tissue Tightness Palpation Details palpation over the abdominal wall reveals soft tissue tightness and distension on the belly, little to know scar tissue present to palpation over the laproscopy incisions of hysterectomy PT-OP-M Strength Start: 07/01/23 08:16 Freq: Status: Active Protocol: Document 07/01/23 15:00 [facility] (Rec: 07/02/23 13:22 [facility] [id number]) Trunk Strength Trunk Manual Muscle Testing Testing Position Supine Flexion 3 Fair Core Stabilization decreased ability to contract and sustain a contraction of the transverse abdominal wall in supine PT-OP-Q Treatments Start: 07/01/23 08:16 Freq: Status: Active Protocol: Document 08/27/23 08:00 [facility] (Rec: 08/27/23 08:49 [facility] [id number]) Therapeutic Exercises Supine Exercises supine TA with december Reps/Minutes x 10 reps pelvic floor long holds Reps/Minutes 10 sec on 10 sec off Other Exercises thread the needle Reps/Minutes x 10 reps qudruped side bends Reps/Minutes x 10 cat cow Side bilateral Reps/Minutes x 10 reps Neuro Re-Education Treatment Other Activities NMES for the pelvic floor with vaginal sensor Details NMES for the pelvic floor Reps/Duration 10 min Comments NMES pt felt it at 4 and then increased to 5 sensation, she feels it more on the right and the front PT-OP-T Assessment and Plan Start: 07/01/23 08:16 Freq: Status: Active Protocol: Document 08/27/23 08:00 [facility] (Rec: 08/27/23 10:51 [facility] [id number]) Physical Therapy Assessment Goals 3 Impairment Urinary leakage with strong cough or sneeze or with exercise Short Term Goal (STG) Marcy is educated in a HEP for pelvic floor strengthening Senior Living Goal (LTG) Marcy reports a overall reduction in urinary stress incontinence symptoms LTG Duration 12 weeks 2 Impairment pelvic pain rated 3/10 and low back pain rated 6/10 Senior Living Goal (LTG) With manual therapy techniques and stretches Marcy reports a reduction in pelvic pain to 1 or less and with improved core support Marcy reports a reduction in her LBP from 6/10 to 4 or less LTG Duration 12 weeks 1 Impairment Pelvic Floor weakness Short Term Goal (STG) Marcy is educated on pelvic floor recruitment and relaxation STG Duration 4 weeks Senior Living Goal (LTG) Marcy shows a increase in pelvic floor strength for improved support of her bladder by at least 1 muscle grade LTG Duration 12 weeks Assessment Summary Assessment I progressed Marcy with lower abdominal progression to 1 b and this was difficult for her . She was feeling back tightness so we reviewed her back stretches and I added on to her stretching program (see treatment). After the stretches she did better with being able to stabilize with her core for level 1b. Marcy also note she felt a more open sensation when sitting on a hard chair after last visit and she may have experienced some swelling after NMES. We discussed icing after treatment if she notices this again after this visit. Physical Therapy Plan Frequency and Duration Frequency of Treatment 1x/Week Duration of treatment (weeks) 12 Plan of Care Start Date 07/01/23 Plan of Care End Date 09/23/23 Therapeutic Interventions Therapeutic Interventions Home Exercise Program,Manual Therapy,Neuromuscular Re- education,Patient/Caregiver Education,Self-Care/Home Management,Soft Tissue Mobilization,Therapeutic Exercises Modalities Biofeedback Next Visit Focus/Plan Next Note Type Treatment Note Next Visit Plan review new stretches added today, check in with how the left side of the levator ani is doing and continue to progress stabilization as Marcy is able to
--- NOTE | 2023-09-23 13:17 | PT.OTN ---
Current Diagnoses Stress incontinence (female) (male) (09/23/23) Pelvic muscle wasting (09/23/23) Pelvic and perineal pain (09/23/23) Weakness (09/23/23) Physical Therapy Treatment Note PT-OP-A Visit Information Start: 07/01/23 08:16 Freq: Status: Active Protocol: Document 09/23/23 08:12 [facility] (Rec: 09/23/23 09:04 [facility] [id number]) Out-Patient Physical Therapy Visit Information Visit Information Visit Type Progress Note Visit Start Time 08:15 Visit Stop Time 09:00 Total Visit Minutes 45 Visit Number 6 PT-OP-B Current Condition Start: 07/01/23 08:16 Freq: Status: Active Protocol: Document 07/01/23 15:00 [facility] (Rec: 07/01/23 15:23 [facility] [id number]) Current Condition History of Current Condition Current Complaints pelvic pain History of Current Condition pt was here a coupble of years ago with incontinence issues, she then had a hysterectomy due to tumors in October. November 04 was date of surgery SHe was doing good up until 10 weeks but then she started to get more pain. 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 Her daughter is 11.5 years old SHe feels very weak in her pelvic floor now and her hips feel weak. Her leakage is less now compared to before. She still doesn't trust her self and with quick steps becuase she doesn't want to leak. Now only occasional leakage when she picks up her dog. PElvic floor pain is like a 2/10 in general but if she does something like trim a hedge she has more pain PT-OP-C Subjective Start: 07/01/23 08:16 Freq: Status: Active Protocol: Document 09/23/23 08:12 [facility] (Rec: 09/23/23 09:04 [facility] [id number]) OP-PT Subjective Patient Comments Patient Comments Marcy notes she is in a lot of pain but she had to say goodbye to her soulmate dog and she feels like her whole body is tense. She realized this week that she is holding tension in her pelvic floor again due to grieving. Patient Reported Progress Same PT-OP-I Pelvic Floor Start: 07/01/23 08:16 Freq: Status: Active Protocol: Document 07/01/23 15:23 [facility] (Rec: 07/01/23 16:04 [facility] [id number]) Pelvic Floor Assessment Urine Pelvic Floor Surgery Yes: Full hysterectomy Leakage Size Small Leakage Cause Cough,Exercise,Lifting,Sneeze Leaks Per Day 1 Voiding Frequency 6+ Nocturia 1-3 xms per night Pelvic Clock Pelvic Clock 12-3 Atrophy Pelvic Clock 3-6 Guarding,Tenderness Pelvic Clock Other left sided pelvic floor guarding , scar tissue noted at the perineum with tightness on the left side, tightness into the left transverse perienum that reproduces pain when palpated Perineal Descent Resting Present Contraction Ability Voluntary Contraction Weak Voluntary Relaxation Weak Manual Muscle Testing Left 0 Manual Muscle Testing Right 2 Manual Muscle Testing Anterior 1 Manual Muscle Testing Posterior 2 Comments Pelvic Floor Comments Left side lateral wall of the pelvic floor is guarded at rest and pt has difficulty both with contraction as well as relazation on the left lateral wall. No palpable contraction noted on the left lateral wall with today's exam PT-OP-J Posture/Palpation/Skin Start: 07/01/23 08:16 Freq: Status: Active Protocol: Document 07/01/23 15:00 [facility] (Rec: 07/02/23 13:21 [facility] [id number]) Palpation Assessment Location abdominal wall Palpation Findings Soft Tissue Tightness Palpation Details palpation over the abdominal wall reveals soft tissue tightness and distension on the belly, little to know scar tissue present to palpation over the laproscopy incisions of hysterectomy PT-OP-M Strength Start: 07/01/23 08:16 Freq: Status: Active Protocol: Document 07/01/23 15:00 [facility] (Rec: 07/02/23 13:22 [facility] [id number]) Trunk Strength Trunk Manual Muscle Testing Testing Position Supine Flexion 3 Fair Core Stabilization decreased ability to contract and sustain a contraction of the transverse abdominal wall in supine PT-OP-Q Treatments Start: 07/01/23 08:16 Freq: Status: Active Protocol: Document 09/23/23 08:12 [facility] (Rec: 09/23/23 09:04 [facility] [id number]) Therapeutic Exercises Supine Exercises pelvic floor quick contractions Reps/Minutes x 10 reps ball squeeze with pelvic floor contractions Reps/Minutes x 10 reps supine TA with december Reps/Minutes x 10 reps piriformis stretch Reps/Minutes hold 1-2 min modified pelvic floor squat Reps/Minutes hold 1-2 min happy baby Reps/Minutes hold 1-2 min pelvic floor long holds Reps/Minutes 10 sec on 10 sec off Comments 9.0 and max of 15.9 Other Exercises thread the needle Reps/Minutes x 10 reps qudruped side bends Reps/Minutes x 10 cat cow Side bilateral Reps/Minutes x 10 reps TA engagement with opp arm lifts Reps/Minutes x 10 reps quadruped TA Reps/Minutes x 10 isidro pose Reps/Minutes 1-2 min Comments cues to open up at the sitting bones to relax the pelvic floor standing active hamstring stretch Reps/Minutes x 10 reps Manual Therapy Treatment Soft Tissue Mobilization adductor release on the left Body Location left sided adductor release Comments very sore left sided adductors and tight at the proximal attachment left sided obturator internus release Comments left side very guarded and tender PT-OP-T Assessment and Plan Start: 07/01/23 08:16 Freq: Status: Active Protocol: Document 09/23/23 08:12 [facility] (Rec: 09/23/23 09:04 [facility] [id number]) Physical Therapy Assessment Goals 3 Impairment Urinary leakage with strong cough or sneeze or with exercise Short Term Goal (STG) Marcy is educated in a HEP for pelvic floor strengthening goal met [employer]inator Goal (LTG) Marcy reports a overall reduction in urinary stress incontinence symptoms goal not yet met LTG Duration 12 weeks 2 Impairment pelvic pain rated 3/10 and low back pain rated 6/10 [facility] Goal (LTG) With manual therapy techniques and stretches Marcy reports a reduction in pelvic pain to 1 or less and with improved core support Marcy reports a reduction in her LBP from 6/10 to 4 or less Pelvic pain has decreased with pelvic floor relaxation however Marcy has had a relapse with pelvic floor tightness after the loss of her dog LTG Duration 12 weeks 1 Impairment Pelvic Floor weakness Short Term Goal (STG) Marcy is educated on pelvic floor recruitment and relaxation goal met STG Duration 4 weeks [facility] Goal (LTG) Marcy shows a increase in pelvic floor strength for improved support of her bladder by at least 1 muscle grade goal not yet met LTG Duration 12 weeks Assessment Summary Assessment Marcy presented with increased tightness again today and was more guarded in her pelvic floor. I did work on adductor release and obturator internus release prior to her pelvic floor exercises but it was harder for her to sustain a pelvic floor contraction today. I advised her to return to her stretches as she does better with her pelvic floor contractions after she has released her hips and low back. She does much better with pelvic floor contractions after her low back is relaxed . Maryc would benefit from continued PT. Physical Therapy Plan Frequency and Duration Frequency of Treatment 1x/Week Duration of treatment (weeks) 12 Plan of Care Start Date 09/23/23 Plan of Care End Date 12/16/23 Therapeutic Interventions Therapeutic Interventions Home Exercise Program,Manual Therapy,Neuromuscular Re- education,Patient/Caregiver Education,Self-Care/Home Management,Soft Tissue Mobilization,Therapeutic Exercises Modalities Biofeedback Next Visit Focus/Plan Next Note Type Treatment Note Next Visit Plan review all stretches next visit and continue with stabilization exercises for the pelvic floor with EMG biofeedback next visit
--- NOTE | 2023-09-23 13:17 | PT.OPPOC ---
Physical, Occupational & Speech Therapy At [facility] Current Diagnoses Stress incontinence (female) (male) (09/23/23) Pelvic muscle wasting (09/23/23) Pelvic and perineal pain (09/23/23) Weakness (09/23/23) Visit Care Team Role Provider Type Guanaco Chauhan MD Family Provider Non-Staff Primary Care Provider Specialty: Medical Address: [address] [place] [address], [id number] Email: Lito Marcos MD Attending Provider Non-Staff Referring Provider Specialty: HEALTH TECH Address: [address] [place] [address], [address], [id number] Email: Plan Of Care PT-OP-T Assessment and Plan Start: 07/01/23 08:16 Freq: Status: Active Protocol: Document 09/23/23 08:12 [facility] (Rec: 09/23/23 09:04 [facility] [id number]) Physical Therapy Assessment Goals 3 Impairment Urinary leakage with strong cough or sneeze or with exercise Short Term Goal (STG) Marcy is educated in a HEP for pelvic floor strengthening goal met Residential Goal (LTG) Marcy reports a overall reduction in urinary stress incontinence symptoms goal not yet met LTG Duration 12 weeks 2 Impairment pelvic pain rated 3/10 and low back pain rated 6/10 Residential Goal (LTG) With manual therapy techniques and stretches Marcy reports a reduction in pelvic pain to 1 or less and with improved core support Marcy reports a reduction in her LBP from 6/10 to 4 or less Pelvic pain has decreased with pelvic floor relaxation however Marcy has had a relapse with pelvic floor tightness after the loss of her dog LTG Duration 12 weeks 1 Impairment Pelvic Floor weakness Short Term Goal (STG) Marcy is educated on pelvic floor recruitment and relaxation goal met STG Duration 4 weeks Residential Goal (LTG) Marcy shows a increase in pelvic floor strength for improved support of her bladder by at least 1 muscle grade goal not yet met LTG Duration 12 weeks Assessment Summary Assessment Marcy presented with increased tightness again today and was more guarded in her pelvic floor. I did work on adductor release and obturator internus release prior to her pelvic floor exercises but it was harder for her to sustain a pelvic floor contraction today. I advised her to return to her stretches as she does better with her pelvic floor contractions after she has released her hips and low back. She does much better with pelvic floor contractions after her low back is relaxed . Marcy would benefit from continued PT. Physical Therapy Plan Frequency and Duration Frequency of Treatment 1x/Week Duration of treatment (weeks) 12 Plan of Care Start Date 09/23/23 Plan of Care End Date 12/16/23 Therapeutic Interventions Therapeutic Interventions Home Exercise Program,Manual Therapy,Neuromuscular Re- education,Patient/Caregiver Education,Self-Care/Home Management,Soft Tissue Mobilization,Therapeutic Exercises Modalities Biofeedback Next Visit Focus/Plan Next Note Type Treatment Note Next Visit Plan review all stretches next visit and continue with stabilization exercises for the pelvic floor with EMG biofeedback next visit Plan of Care Dates Plan of Care Start Date 09/23/23 Plan of Care End Date 12/16/23 Electronically Signed by: Onelia Griffith, PT 09/24/23 [id number] If you are in agreement with this Plan of Care, please return a signed and dated copy. I have reviewed this Plan of Care and certify that the skilled therapy services above are required to meet the patient?s needs. Physician Signature Date Printed Name and Credentials Clinical Instructor Signature Printed Name and Credentials
--- NOTE | 2023-11-11 11:33 | PT.OTN ---
Current Diagnoses Stress incontinence (female) (male) (11/11/23) Pelvic muscle wasting (11/11/23) Pelvic and perineal pain (11/11/23) Weakness (11/11/23) Physical Therapy Treatment Note PT-OP-A Visit Information Start: 07/01/23 08:16 Freq: Status: Active Protocol: Document 11/11/23 09:51 [facility] (Rec: 11/11/23 10:33 [facility] [id number]) Out-Patient Physical Therapy Visit Information Visit Information Visit Type Treatment Note Visit Start Time 09:50 Visit Stop Time 10:30 Total Visit Minutes 40 Visit Number 7 PT-OP-B Current Condition Start: 07/01/23 08:16 Freq: Status: Active Protocol: Document 07/01/23 15:00 [facility] (Rec: 07/01/23 15:23 [facility] [id number]) Current Condition History of Current Condition Current Complaints pelvic pain History of Current Condition pt was here a coupble of years ago with incontinence issues, she then had a hysterectomy due to tumors in October. November 04 was date of surgery SHe was doing good up until 10 weeks but then she started to get more pain. 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 Her daughter is 11.5 years old SHe feels very weak in her pelvic floor now and her hips feel weak. Her leakage is less now compared to before. She still doesn't trust her self and with quick steps becuase she doesn't want to leak. Now only occasional leakage when she picks up her dog. PElvic floor pain is like a 2/10 in general but if she does something like trim a hedge she has more pain PT-OP-C Subjective Start: 07/01/23 08:16 Freq: Status: Active Protocol: Document 11/11/23 09:51 [facility] (Rec: 11/11/23 10:33 [facility] [id number]) OP-PT Subjective Patient Comments Patient Comments pt had pneumonia and was coughing a lot, ever since then she has had more leakage. She has been able to do all her stretches and pain levels are much decreased. She is able to work on her pelvic floor without pain. PT-OP-I Pelvic Floor Start: 07/01/23 08:16 Freq: Status: Active Protocol: Document 07/01/23 15:23 [facility] (Rec: 07/01/23 16:04 [facility] [id number]) Pelvic Floor Assessment Urine Pelvic Floor Surgery Yes: Full hysterectomy Leakage Size Small Leakage Cause Cough,Exercise,Lifting,Sneeze Leaks Per Day 1 Voiding Frequency 6+ Nocturia 1-3 xms per night Pelvic Clock Pelvic Clock 12-3 Atrophy Pelvic Clock 3-6 Guarding,Tenderness Pelvic Clock Other left sided pelvic floor guarding , scar tissue noted at the perineum with tightness on the left side, tightness into the left transverse perienum that reproduces pain when palpated Perineal Descent Resting Present Contraction Ability Voluntary Contraction Weak Voluntary Relaxation Weak Manual Muscle Testing Left 0 Manual Muscle Testing Right 2 Manual Muscle Testing Anterior 1 Manual Muscle Testing Posterior 2 Comments Pelvic Floor Comments Left side lateral wall of the pelvic floor is guarded at rest and pt has difficulty both with contraction as well as relazation on the left lateral wall. No palpable contraction noted on the left lateral wall with today's exam PT-OP-J Posture/Palpation/Skin Start: 07/01/23 08:16 Freq: Status: Active Protocol: Document 07/01/23 15:00 [facility] (Rec: 07/02/23 13:21 [facility] [id number]) Palpation Assessment Location abdominal wall Palpation Findings Soft Tissue Tightness Palpation Details palpation over the abdominal wall reveals soft tissue tightness and distension on the belly, little to know scar tissue present to palpation over the laproscopy incisions of hysterectomy PT-OP-M Strength Start: 07/01/23 08:16 Freq: Status: Active Protocol: Document 07/01/23 15:00 [facility] (Rec: 07/02/23 13:22 [facility] [id number]) Trunk Strength Trunk Manual Muscle Testing Testing Position Supine Flexion 3 Fair Core Stabilization decreased ability to contract and sustain a contraction of the transverse abdominal wall in supine PT-OP-Q Treatments Start: 07/01/23 08:16 Freq: Status: Active Protocol: Document 11/11/23 09:51 [facility] (Rec: 11/11/23 10:33 [facility] [id number]) Therapeutic Exercises Supine Exercises SLR with TA Reps/Minutes x 10 reps each pelvic floor quick contractions Reps/Minutes x 15 24 uv max supine TA with march Reps/Minutes x 10 reps pelvic floor long holds Comments 14.1 and max of 23 Sidelying Exercises sidelying hip circles Reps/Minutes 2 x 10 reps clam shells Reps/Minutes 2 x 10 reps Other Exercises standing sumo squats with pelvic floor engagement on the return to stand Reps/Minutes x 10 reps Comments pelvic floor contraction with standing standing squats with pelvic floor engagement Reps/Minutes x 10 reps Comments work on standing with pelvic floor contraction Self-Care/Home Management Treatment Education Patient Education Home Exercise Program Other Education education on use of poise impressas for bladder support and for Marcy to speak with her MD regarding vaginal estrogen cream to help with her tissue since she has had a complete hysterectomy. PT-OP-T Assessment and Plan Start: 07/01/23 08:16 Freq: Status: Active Protocol: Document 11/11/23 09:50 [facility] (Rec: 11/11/23 11:33 [facility] [id number]) Physical Therapy Assessment Goals 3 Impairment Urinary leakage with strong cough or sneeze or with exercise Short Term Goal (STG) Marcy is educated in a HEP for pelvic floor strengthening goal met Salvage Supervisor Goal (LTG) Marcy reports a overall reduction in urinary stress incontinence symptoms goal not yet met LTG Duration 12 weeks 2 Impairment pelvic pain rated 3/10 and low back pain rated 6/10 Detention Goal (LTG) With manual therapy techniques and stretches Marcy reports a reduction in pelvic pain to 1 or less and with improved core support Marcy reports a reduction in her LBP from 6/10 to 4 or less Pelvic pain has decreased with pelvic floor relaxation however Marcy has had a relapse with pelvic floor tightness after the loss of her dog LTG Duration 12 weeks 1 Impairment Pelvic Floor weakness Short Term Goal (STG) Marcy is educated on pelvic floor recruitment and relaxation goal met STG Duration 4 weeks Detention Goal (LTG) Marcy shows a increase in pelvic floor strength for improved support of her bladder by at least 1 muscle grade goal not yet met LTG Duration 12 weeks Assessment Summary Assessment Marcy is doing better this visit with decreased tightness and decreased pelvic pain. She has been able to return to her exercises without pain. She had a bout of pneumonia over [place] with a great deal of coughing and this has caused a increase in her leakage. I did educate Marcy today on poise impressas for bladder support as well as talking about vaginal estrogen cream for her to talk to her MD about. We started standing pelvic floor engagement with squats as she has to lift dogs up off the floor. Physical Therapy Plan Frequency and Duration Frequency of Treatment 1x/Week Duration of treatment (weeks) 12 Plan of Care Start Date 09/23/23 Plan of Care End Date 12/16/23 Next Visit Focus/Plan Next Note Type Treatment Note Next Visit Plan review standing squats, continue progressing dynamic stabilization exercises
--- NOTE | 2023-11-19 13:04 | PT.OTN ---
Current Diagnoses Stress incontinence (female) (male) (11/19/23) Pelvic muscle wasting (11/19/23) Pelvic and perineal pain (11/19/23) Weakness (11/19/23) Physical Therapy Treatment Note PT-OP-A Visit Information Start: 07/01/23 08:16 Freq: Status: Active Protocol: Document 11/19/23 08:15 [facility] (Rec: 11/19/23 08:59 [facility] [id number]) Out-Patient Physical Therapy Visit Information Visit Information Visit Type Aquatic Treatment Note Visit Start Time 08:15 Visit Stop Time 09:00 Visit Number 8 PT-OP-B Current Condition Start: 07/01/23 08:16 Freq: Status: Active Protocol: Document 07/01/23 15:00 [facility] (Rec: 07/01/23 15:23 [facility] [id number]) Current Condition History of Current Condition Current Complaints pelvic pain History of Current Condition pt was here a coupble of years ago with incontinence issues, she then had a hysterectomy due to tumors in October. November 04 was date of surgery SHe was doing good up until 10 weeks but then she started to get more pain. 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 Her daughter is 11.5 years old SHe feels very weak in her pelvic floor now and her hips feel weak. Her leakage is less now compared to before. She still doesn't trust her self and with quick steps becuase she doesn't want to leak. Now only occasional leakage when she picks up her dog. PElvic floor pain is like a 2/10 in general but if she does something like trim a hedge she has more pain PT-OP-C Subjective Start: 07/01/23 08:16 Freq: Status: Active Protocol: Document 11/19/23 08:15 [facility] (Rec: 11/19/23 08:59 [facility] [id number]) OP-PT Subjective Patient Comments Patient Comments pt notes its a little better and the coughing has subsided now, she is still leaking more than she expects but its better. PT-OP-I Pelvic Floor Start: 07/01/23 08:16 Freq: Status: Active Protocol: Document 07/01/23 15:23 [facility] (Rec: 07/01/23 16:04 [facility] [id number]) Pelvic Floor Assessment Urine Pelvic Floor Surgery Yes: Full hysterectomy Leakage Size Small Leakage Cause Cough,Exercise,Lifting,Sneeze Leaks Per Day 1 Voiding Frequency 6+ Nocturia 1-3 xms per night Pelvic Clock Pelvic Clock 12-3 Atrophy Pelvic Clock 3-6 Guarding,Tenderness Pelvic Clock Other left sided pelvic floor guarding , scar tissue noted at the perineum with tightness on the left side, tightness into the left transverse perienum that reproduces pain when palpated Perineal Descent Resting Present Contraction Ability Voluntary Contraction Weak Voluntary Relaxation Weak Manual Muscle Testing Left 0 Manual Muscle Testing Right 2 Manual Muscle Testing Anterior 1 Manual Muscle Testing Posterior 2 Comments Pelvic Floor Comments Left side lateral wall of the pelvic floor is guarded at rest and pt has difficulty both with contraction as well as relazation on the left lateral wall. No palpable contraction noted on the left lateral wall with today's exam PT-OP-J Posture/Palpation/Skin Start: 07/01/23 08:16 Freq: Status: Active Protocol: Document 07/01/23 15:00 [facility] (Rec: 07/02/23 13:21 [facility] [id number]) Palpation Assessment Location abdominal wall Palpation Findings Soft Tissue Tightness Palpation Details palpation over the abdominal wall reveals soft tissue tightness and distension on the belly, little to know scar tissue present to palpation over the laproscopy incisions of hysterectomy PT-OP-M Strength Start: 07/01/23 08:16 Freq: Status: Active Protocol: Document 07/01/23 15:00 [facility] (Rec: 07/02/23 13:22 [facility] [id number]) Trunk Strength Trunk Manual Muscle Testing Testing Position Supine Flexion 3 Fair Core Stabilization decreased ability to contract and sustain a contraction of the transverse abdominal wall in supine PT-OP-Q Treatments Start: 07/01/23 08:16 Freq: Status: Active Protocol: Document 11/19/23 08:15 [facility] (Rec: 11/19/23 08:59 [facility] [id number]) Therapeutic Exercises Supine Exercises pelvic floor quick contractions Reps/Minutes x 15 ball squeeze with pelvic floor contractions Reps/Minutes x 10 reps pelvic floor long holds Comments 9.1 and max of 20 Other Exercises standing sumo squats with pelvic floor engagement on the return to stand Reps/Minutes x 10 reps 9.7 and 20.1 uv max Comments pelvic floor contraction with standing PT-OP-T Assessment and Plan Start: 07/01/23 08:16 Freq: Status: Active Protocol: Document 11/19/23 08:15 [facility] (Rec: 11/19/23 13:04 [facility] [id number]) Physical Therapy Assessment Assessment Summary Assessment I added resistance with side steps and squats today to work lateral hip strength as Marcy tolerated this well. She would benefit from continual progression of standing dynamic strengtheing for her pelvis and pelvic floor. Physical Therapy Plan Frequency and Duration Frequency of Treatment 1x/Week Duration of treatment (weeks) 12 Plan of Care Start Date 09/23/23 Plan of Care End Date 12/16/23 Therapeutic Interventions Therapeutic Interventions Home Exercise Program,Manual Therapy,Neuromuscular Re- education,Patient/Caregiver Education,Self-Care/Home Management,Soft Tissue Mobilization,Therapeutic Exercises Modalities Biofeedback Next Visit Focus/Plan Next Note Type Treatment Note Next Visit Plan review standing squats, continue progressing dynamic stabilization exercises
--- NOTE | 2023-11-26 09:30 | PT-IP ANOTE ---
Pt left voicemail that she was woke up sick this AM
--- NOTE | 2023-12-03 13:07 | PT.OTN ---
Current Diagnoses Stress incontinence (female) (male) (12/03/23) Pelvic muscle wasting (12/03/23) Pelvic and perineal pain (12/03/23) Weakness (12/03/23) Physical Therapy Treatment Note PT-OP-A Visit Information Start: 07/01/23 08:16 Freq: Status: Active Protocol: Document 12/03/23 08:14 [facility] (Rec: 12/03/23 12:59 [facility] [id number]) Out-Patient Physical Therapy Visit Information Visit Information Visit Type Progress Note Visit Start Time 08:15 Visit Stop Time 09:00 Visit Number 9 Evaluation Information Evaluation Date 07/01/23 PT-OP-B Current Condition Start: 07/01/23 08:16 Freq: Status: Active Protocol: Document 07/01/23 15:00 [facility] (Rec: 07/01/23 15:23 [facility] [id number]) Current Condition History of Current Condition Current Complaints pelvic pain History of Current Condition pt was here a coupble of years ago with incontinence issues, she then had a hysterectomy due to tumors in October. November 04 was date of surgery SHe was doing good up until 10 weeks but then she started to get more pain. 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 Her daughter is 11.5 years old SHe feels very weak in her pelvic floor now and her hips feel weak. Her leakage is less now compared to before. She still doesn't trust her self and with quick steps becuase she doesn't want to leak. Now only occasional leakage when she picks up her dog. PElvic floor pain is like a 2/10 in general but if she does something like trim a hedge she has more pain PT-OP-C Subjective Start: 07/01/23 08:16 Freq: Status: Active Protocol: Document 12/03/23 08:14 [facility] (Rec: 12/03/23 09:42 [facility] [id number]) OP-PT Subjective Patient Comments Patient Comments leaking has gotten better, when She is walking she can't pull in and up, She is having some tenderness at the ischiums. Overall she can tell there is progress and she is not feeling the pain she was having initially Patient Reported Progress Improving PT-OP-I Pelvic Floor Start: 07/01/23 08:16 Freq: Status: Active Protocol: Document 07/01/23 15:23 [facility] (Rec: 07/01/23 16:04 [facility] [id number]) Pelvic Floor Assessment Urine Pelvic Floor Surgery Yes: Full hysterectomy Leakage Size Small Leakage Cause Cough,Exercise,Lifting,Sneeze Leaks Per Day 1 Voiding Frequency 6+ Nocturia 1-3 xms per night Pelvic Clock Pelvic Clock 12-3 Atrophy Pelvic Clock 3-6 Guarding,Tenderness Pelvic Clock Other left sided pelvic floor guarding , scar tissue noted at the perineum with tightness on the left side, tightness into the left transverse perienum that reproduces pain when palpated Perineal Descent Resting Present Contraction Ability Voluntary Contraction Weak Voluntary Relaxation Weak Manual Muscle Testing Left 0 Manual Muscle Testing Right 2 Manual Muscle Testing Anterior 1 Manual Muscle Testing Posterior 2 Comments Pelvic Floor Comments Left side lateral wall of the pelvic floor is guarded at rest and pt has difficulty both with contraction as well as relazation on the left lateral wall. No palpable contraction noted on the left lateral wall with today's exam PT-OP-J Posture/Palpation/Skin Start: 07/01/23 08:16 Freq: Status: Active Protocol: Document 07/01/23 15:00 [facility] (Rec: 07/02/23 13:21 [facility] [id number]) Palpation Assessment Location abdominal wall Palpation Findings Soft Tissue Tightness Palpation Details palpation over the abdominal wall reveals soft tissue tightness and distension on the belly, little to know scar tissue present to palpation over the laproscopy incisions of hysterectomy PT-OP-M Strength Start: 07/01/23 08:16 Freq: Status: Active Protocol: Document 07/01/23 15:00 [facility] (Rec: 07/02/23 13:22 [facility] [id number]) Trunk Strength Trunk Manual Muscle Testing Testing Position Supine Flexion 3 Fair Core Stabilization decreased ability to contract and sustain a contraction of the transverse abdominal wall in supine PT-OP-Q Treatments Start: 07/01/23 08:16 Freq: Status: Active Protocol: Document 12/03/23 08:14 [facility] (Rec: 12/03/23 09:42 [facility] [id number]) Therapeutic Exercises Supine Exercises pelvic floor long holds Reps/Minutes x 10 reps holding 10 sec and relaxing 10 sec Standing Exercises standing pelvic floor Reps/Minutes 5 sec hold and 10 sec relax Comments cued to stand with hands on counter top to relax abs Other Exercises goddess pose Reps/Minutes x 4 reps alternating sides wind shield wipers Reps/Minutes x 5 modified down dog stretch Reps/Minutes hold 1-2 min standing active hamstring stretch Reps/Minutes x 10 reps Manual Therapy Treatment Manual Techniques manual hip IR stretch Reps/Duration hold 1 min each side iliospsoas stretch B Type worked in hooklying in dio test positions B Body Position Hooklying Reps/Duration 1 stretch each side holding 1- 2 min Self-Care/Home Management Treatment Education Patient Education Home Exercise Program Other Education pt educated in standing pelvic floor contractions and to lean forward onto the counter to work on relaxing her abdominal wall for improved pelvic floor facilitation PT-OP-T Assessment and Plan Start: 07/01/23 08:16 Freq: Status: Active Protocol: Document 12/03/23 08:14 [facility] (Rec: 12/03/23 09:42 [facility] [id number]) Physical Therapy Assessment Goals 3 Impairment Urinary leakage with strong cough or sneeze or with exercise Short Term Goal (STG) Marcy is educated in a HEP for pelvic floor strengthening goal met Retirement Goal (LTG) Marcy reports a overall reduction in urinary stress incontinence symptoms Good progress LTG Duration 12 weeks 2 Impairment pelvic pain rated 3/10 and low back pain rated 6/10 Career Coordinator Goal (LTG) With manual therapy techniques and stretches Marcy reports a reduction in pelvic pain to 1 or less and with improved core support Marcy reports a reduction in her LBP from 6/10 to 4 or less Pelvic pain has decreased with pelvic floor relaxation and Marcy has been able to increase her stride length with walking x 30 min LTG Duration 12 weeks 1 Impairment Pelvic Floor weakness Short Term Goal (STG) Marcy is educated on pelvic floor recruitment and relaxation goal met STG Duration 4 weeks Career Coordinator Goal (LTG) Marcy shows a increase in pelvic floor strength for improved support of her bladder by at least 1 muscle grade pt is showing progress with pelvic floor endurance and she is now working on pelvic floor recruitment in standing LTG Duration 12 weeks Assessment Summary Assessment I added in standing pelvic floor facilitation for Marcy today and she was able to hold x 5 seconds in standing. She is making progress with her pelvic floor endurance and would like to continue PT Physical Therapy Plan Frequency and Duration Frequency of Treatment 1x/Week Duration of treatment (weeks) 12 Plan of Care Start Date 12/03/23 Plan of Care End Date 02/25/24 Therapeutic Interventions Therapeutic Interventions Home Exercise Program,Manual Therapy,Neuromuscular Re- education,Patient/Caregiver Education,Self-Care/Home Management,Soft Tissue Mobilization,Therapeutic Exercises Modalities Biofeedback Next Visit Focus/Plan Next Note Type Treatment Note Next Visit Plan review standing squats, continue progressing dynamic stabilization exercises, pelvic floor EMG biofeedback in supine and standing
--- NOTE | 2023-12-03 13:08 | PT.OPPOC ---
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 Address: [address] [place] [address], [address], [address] Email: Plan Of Care PT-OP-T Assessment and Plan Start: 07/01/23 08:16 Freq: Status: Active Protocol: Document 12/03/23 08:14 [facility] (Rec: 12/03/23 09:42 [facility] [id number]) Physical Therapy Assessment Goals 3 Impairment Urinary leakage with strong cough or sneeze or with exercise Short Term Goal (STG) Marcy is educated in a HEP for pelvic floor strengthening goal met Custodial Goal (LTG) Marcy reports a overall reduction in urinary stress incontinence symptoms Good progress LTG Duration 12 weeks 2 Impairment pelvic pain rated 3/10 and low back pain rated 6/10 Custodial Goal (LTG) With manual therapy techniques and stretches Marcy reports a reduction in pelvic pain to 1 or less and with improved core support Marcy reports a reduction in her LBP from 6/10 to 4 or less Pelvic pain has decreased with pelvic floor relaxation and Marcy has been able to increase her stride length with walking x 30 min LTG Duration 12 weeks 1 Impairment Pelvic Floor weakness Short Term Goal (STG) Marcy is educated on pelvic floor recruitment and relaxation goal met STG Duration 4 weeks Custodial Goal (LTG) Marcy shows a increase in pelvic floor strength for improved support of her bladder by at least 1 muscle grade pt is showing progress with pelvic floor endurance and she is now working on pelvic floor recruitment in standing LTG Duration 12 weeks Assessment Summary Assessment I added in standing pelvic floor facilitation for Marcy today and she was able to hold x 5 seconds in standing. She is making progress with her pelvic floor endurance and would like to continue PT Physical Therapy Plan Frequency and Duration Frequency of Treatment 1x/Week Duration of treatment (weeks) 12 Plan of Care Start Date 12/03/23 Plan of Care End Date 02/25/24 Therapeutic Interventions Therapeutic Interventions Home Exercise Program,Manual Therapy,Neuromuscular Re- education,Patient/Caregiver Education,Self-Care/Home Management,Soft Tissue Mobilization,Therapeutic Exercises Modalities Biofeedback Next Visit Focus/Plan Next Note Type Treatment Note Next Visit Plan review standing squats, continue progressing dynamic stabilization exercises, pelvic floor EMG biofeedback in supine and standing Plan of Care Dates Plan of Care Start Date 12/03/23 Plan of Care End Date 02/25/24 Electronically Signed by: Onelia Griffith, PT 12/03/23 8236 If you are in agreement with this Plan of Care, please return a signed and dated copy. I have reviewed this Plan of Care and certify that the skilled therapy services above are required to meet the patient?s needs. Physician Signature Date Printed Name and Credentials Clinical Instructor Signature Printed Name and Credentials
--- NOTE | 2023-12-11 10:54 | PT.OTN ---
Current Diagnoses Stress incontinence (female) (male) (12/11/23) Pelvic muscle wasting (12/11/23) Pelvic and perineal pain (12/11/23) Weakness (12/11/23) Physical Therapy Treatment Note PT-OP-A Visit Information Start: 07/01/23 08:16 Freq: Status: Active Protocol: Document 12/11/23 08:15 [facility] (Rec: 12/11/23 09:03 [facility] [id number]) Out-Patient Physical Therapy Visit Information Visit Information Visit Type Treatment Note Visit Start Time 08:15 Visit Stop Time 09:00 Visit Number 10 PT-OP-B Current Condition Start: 07/01/23 08:16 Freq: Status: Active Protocol: Document 07/01/23 15:00 [facility] (Rec: 07/01/23 15:23 [facility] [id number]) Current Condition History of Current Condition Current Complaints pelvic pain History of Current Condition pt was here a coupble of years ago with incontinence issues, she then had a hysterectomy due to tumors in October. November 04 was date of surgery SHe was doing good up until 10 weeks but then she started to get more pain. 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 Her daughter is 11.5 years old SHe feels very weak in her pelvic floor now and her hips feel weak. Her leakage is less now compared to before. She still doesn't trust her self and with quick steps becuase she doesn't want to leak. Now only occasional leakage when she picks up her dog. PElvic floor pain is like a 2/10 in general but if she does something like trim a hedge she has more pain PT-OP-C Subjective Start: 07/01/23 08:16 Freq: Status: Active Protocol: Document 12/11/23 08:15 [facility] (Rec: 12/11/23 09:03 [facility] [id number]) OP-PT Subjective Patient Comments Patient Comments pt has had some soreness this past week, almost like a period cramp but like pain level 2, still feeling some soreness in the inside of her ischium. She sat a lot on friday in a stool in one position for the day and was sore afterwards. She does report decreased overall urinary leakage this week PT-OP-I Pelvic Floor Start: 07/01/23 08:16 Freq: Status: Active Protocol: Document 07/01/23 15:23 [facility] (Rec: 07/01/23 16:04 [facility] [id number]) Pelvic Floor Assessment Urine Pelvic Floor Surgery Yes: Full hysterectomy Leakage Size Small Leakage Cause Cough,Exercise,Lifting,Sneeze Leaks Per Day 1 Voiding Frequency 6+ Nocturia 1-3 xms per night Pelvic Clock Pelvic Clock 12-3 Atrophy Pelvic Clock 3-6 Guarding,Tenderness Pelvic Clock Other left sided pelvic floor guarding , scar tissue noted at the perineum with tightness on the left side, tightness into the left transverse perienum that reproduces pain when palpated Perineal Descent Resting Present Contraction Ability Voluntary Contraction Weak Voluntary Relaxation Weak Manual Muscle Testing Left 0 Manual Muscle Testing Right 2 Manual Muscle Testing Anterior 1 Manual Muscle Testing Posterior 2 Comments Pelvic Floor Comments Left side lateral wall of the pelvic floor is guarded at rest and pt has difficulty both with contraction as well as relazation on the left lateral wall. No palpable contraction noted on the left lateral wall with today's exam PT-OP-J Posture/Palpation/Skin Start: 07/01/23 08:16 Freq: Status: Active Protocol: Document 07/01/23 15:00 [facility] (Rec: 07/02/23 13:21 [facility] [id number]) Palpation Assessment Location abdominal wall Palpation Findings Soft Tissue Tightness Palpation Details palpation over the abdominal wall reveals soft tissue tightness and distension on the belly, little to know scar tissue present to palpation over the laproscopy incisions of hysterectomy PT-OP-M Strength Start: 07/01/23 08:16 Freq: Status: Active Protocol: Document 07/01/23 15:00 [facility] (Rec: 07/02/23 13:22 [facility] [id number]) Trunk Strength Trunk Manual Muscle Testing Testing Position Supine Flexion 3 Fair Core Stabilization decreased ability to contract and sustain a contraction of the transverse abdominal wall in supine PT-OP-Q Treatments Start: 07/01/23 08:16 Freq: Status: Active Protocol: Document 12/11/23 08:15 [facility] (Rec: 12/11/23 09:03 [facility] [id number]) Therapeutic Exercises Supine Exercises SLR with TA Reps/Minutes x 10 reps each supine TA with march Reps/Minutes x 10 reps piriformis stretch Reps/Minutes hold 1-2 min modified pelvic floor squat Reps/Minutes hold 1-2 min happy baby Reps/Minutes hold 1-2 min Sidelying Exercises sidelying hip abduction Reps/Minutes x 10 sidelying hip circles Reps/Minutes x 10 each direction clam shells Reps/Minutes x 15 Other Exercises quadruped rock backs Reps/Minutes x 10 reps goddess pose Reps/Minutes x 4 reps alternating sides wind shield wipers Reps/Minutes x 10 reps modified down dog stretch Reps/Minutes hold 1-2 min isidro pose Reps/Minutes 1-2 min Comments cues to open up at the sitting bones to relax the pelvic floor standing active hamstring stretch Reps/Minutes x 10 reps Manual Therapy Treatment Manual Techniques pundendal nerve glides Comments pressure medial to the ischium while flexing the hip into flexion and hip IR, left side tighter than right but pt is tolerated well manual hip IR stretch Reps/Duration hold 1 min each side iliospsoas stretch B Type worked in hooklying in dio test positions B Body Position Hooklying Reps/Duration 1 stretch each side holding 1- 2 min PT-OP-T Assessment and Plan Start: 07/01/23 08:16 Freq: Status: Active Protocol: Document 12/11/23 08:15 [facility] (Rec: 12/11/23 10:49 [facility] [id number]) Physical Therapy Assessment Assessment Summary Assessment Marcy was tender at each ischium today as she had to spend a day sitting in one place on a stool for work. We worked on stretches to open up at the ischium and I did also try pudendal nerve glides today. She was shown the ball chair for sitting on for work, she did sit on it and feel it was comfortable for her. We worked on core stabilization but held off on isolating pelvic floor as Marcy felt it might make her sore. She does report decreased leakage this week. Physical Therapy Plan Frequency and Duration Frequency of Treatment 1x/Week Duration of treatment (weeks) 12 Plan of Care Start Date 12/03/23 Plan of Care End Date 02/25/24 Therapeutic Interventions Therapeutic Interventions Home Exercise Program,Manual Therapy,Neuromuscular Re- education,Patient/Caregiver Education,Self-Care/Home Management,Soft Tissue Mobilization,Therapeutic Exercises Modalities Biofeedback Next Visit Focus/Plan Next Note Type Treatment Note Next Visit Plan check in with how Marcy is doing with ischial pain, continue to progress stabilization ex
--- NOTE | 2024-01-14 09:01 | PT.OTN ---
Current Diagnoses Stress incontinence (female) (male) (01/14/24) Pelvic muscle wasting (01/14/24) Pelvic and perineal pain (01/14/24) Weakness (01/14/24) Physical Therapy Treatment Note PT-OP-A Visit Information Start: 07/01/23 08:16 Freq: Status: Active Protocol: Document 01/14/24 08:13 [facility] (Rec: 01/14/24 09:01 [facility] [id number]) Out-Patient Physical Therapy Visit Information Visit Information Visit Start Time 08:15 Visit Stop Time 09:00 Visit Number 11 PT-OP-B Current Condition Start: 07/01/23 08:16 Freq: Status: Active Protocol: Document 07/01/23 15:00 [facility] (Rec: 07/01/23 15:23 [facility] [id number]) Current Condition History of Current Condition Current Complaints pelvic pain History of Current Condition pt was here a coupble of years ago with incontinence issues, she then had a hysterectomy due to tumors in October. November 04 was date of surgery SHe was doing good up until 10 weeks but then she started to get more pain. 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 Her daughter is 11.5 years old SHe feels very weak in her pelvic floor now and her hips feel weak. Her leakage is less now compared to before. She still doesn't trust her self and with quick steps becuase she doesn't want to leak. Now only occasional leakage when she picks up her dog. PElvic floor pain is like a 2/10 in general but if she does something like trim a hedge she has more pain PT-OP-C Subjective Start: 07/01/23 08:16 Freq: Status: Active Protocol: Document 01/14/24 08:13 [facility] (Rec: 01/14/24 09:01 [facility] [id number]) OP-PT Subjective Patient Comments Patient Comments Marcy feels like she is getting stronger she still has days where she is tight SHe does get shooting pain when in her car at the buttock bones. Marcy reports she has been trying to stretch more when walking on the treadmill if she starts to feel any back tightness PT-OP-I Pelvic Floor Start: 07/01/23 08:16 Freq: Status: Active Protocol: Document 07/01/23 15:23 [facility] (Rec: 07/01/23 16:04 [facility] [id number]) Pelvic Floor Assessment Urine Pelvic Floor Surgery Yes: Full hysterectomy Leakage Size Small Leakage Cause Cough,Exercise,Lifting,Sneeze Leaks Per Day 1 Voiding Frequency 6+ Nocturia 1-3 xms per night Pelvic Clock Pelvic Clock 12-3 Atrophy Pelvic Clock 3-6 Guarding,Tenderness Pelvic Clock Other left sided pelvic floor guarding , scar tissue noted at the perineum with tightness on the left side, tightness into the left transverse perienum that reproduces pain when palpated Perineal Descent Resting Present Contraction Ability Voluntary Contraction Weak Voluntary Relaxation Weak Manual Muscle Testing Left 0 Manual Muscle Testing Right 2 Manual Muscle Testing Anterior 1 Manual Muscle Testing Posterior 2 Comments Pelvic Floor Comments Left side lateral wall of the pelvic floor is guarded at rest and pt has difficulty both with contraction as well as relazation on the left lateral wall. No palpable contraction noted on the left lateral wall with today's exam PT-OP-J Posture/Palpation/Skin Start: 07/01/23 08:16 Freq: Status: Active Protocol: Document 07/01/23 15:00 [facility] (Rec: 07/02/23 13:21 [facility] [id number]) Palpation Assessment Location abdominal wall Palpation Findings Soft Tissue Tightness Palpation Details palpation over the abdominal wall reveals soft tissue tightness and distension on the belly, little to know scar tissue present to palpation over the laproscopy incisions of hysterectomy PT-OP-M Strength Start: 07/01/23 08:16 Freq: Status: Active Protocol: Document 07/01/23 15:00 [facility] (Rec: 07/02/23 13:22 [facility] [id number]) Trunk Strength Trunk Manual Muscle Testing Testing Position Supine Flexion 3 Fair Core Stabilization decreased ability to contract and sustain a contraction of the transverse abdominal wall in supine PT-OP-Q Treatments Start: 07/01/23 08:16 Freq: Status: Active Protocol: Document 01/14/24 08:13 [facility] (Rec: 01/14/24 09:01 [facility] [id number]) Therapeutic Exercises Supine Exercises pelvic floor long holds Reps/Minutes x 10 reps holding 10 sec and relaxing 10 sec Comments 6.6uv average and max 15 Manual Therapy Treatment Soft Tissue Mobilization release of the medial hamstrings B and gluteal attachments to the ischium Mobilization Type Myofascial Release Intensity/Depth Moderate Comments left greater than right sided medial hamstring tightness at the proximal attachment to the ischium PT-OP-T Assessment and Plan Start: 07/01/23 08:16 Freq: Status: Active Protocol: Document 01/14/24 08:13 [facility] (Rec: 01/14/24 09:01 [facility] [id number]) Physical Therapy Assessment Rehab Potential Rehabilitation Potential Excellent Evaluation Complexity Number of Personal Factors/Comorbidities 0 Number of Body Systems Impaired 1-2 Clinical Presentation at Evaluation Stable Impairments Impairments Activity Tolerance,Functional Activities,Pain,Soft Tissue Mobility,Strength Goals 3 Impairment Urinary leakage with strong cough or sneeze or with exercise Short Term Goal (STG) Marcy is educated in a HEP for pelvic floor strengthening goal met Usp Goal (LTG) Marcy reports a overall reduction in urinary stress incontinence symptoms Good progress LTG Duration 12 weeks 2 Impairment pelvic pain rated 3/10 and low back pain rated 6/10 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) With manual therapy techniques and stretches Marcy reports a reduction in pelvic pain to 1 or less and with improved core support Marcy reports a reduction in her LBP from 6/10 to 4 or less Pelvic pain has decreased with pelvic floor relaxation and Marcy has been able to increase her stride length with walking x 30 min LTG Duration 12 weeks 1 Impairment Pelvic Floor weakness Short Term Goal (STG) Marcy is educated on pelvic floor recruitment and relaxation goal met STG Duration 4 weeks Usp Goal (LTG) Marcy shows a increase in pelvic floor strength for improved support of her bladder by at least 1 muscle grade pt is showing progress with pelvic floor endurance and she is now working on pelvic floor recruitment in standing LTG Duration 12 weeks Assessment Summary Assessment Left greater than right side medial hamstring proximal attachment tightness at the ischium. Tolerated manual work well and was able to relax to baseline tone on EMG biofeedback for the first time . Encouraged down dog and dynamic hamstring stretching for home Physical Therapy Plan Frequency and Duration Frequency of Treatment 1x/Week Duration of treatment (weeks) 12 Plan of Care Start Date 12/03/23 Plan of Care End Date 02/25/24 Therapeutic Interventions Therapeutic Interventions Home Exercise Program,Manual Therapy,Neuromuscular Re- education,Patient/Caregiver Education,Self-Care/Home Management,Soft Tissue Mobilization,Therapeutic Exercises Modalities Biofeedback Next Visit Focus/Plan Next Note Type Treatment Note Next Visit Plan check in with medial hamstring tightness on the left and ischial tuberosity pain
--- NOTE | 2024-02-10 09:08 | PT.OTN ---
Current Diagnoses Stress incontinence (female) (male) (02/10/24) Pelvic muscle wasting (02/10/24) Pelvic and perineal pain (02/10/24) Weakness (02/10/24) Physical Therapy Treatment Note PT-OP-A Visit Information Start: 07/01/23 08:16 Freq: Status: Active Protocol: Document 02/10/24 08:16 [facility] (Rec: 02/10/24 09:08 [facility] [id number]) Out-Patient Physical Therapy Visit Information Visit Information Visit Type Treatment Note Visit Start Time 08:15 Visit Stop Time 09:00 Visit Number 12 PT-OP-B Current Condition Start: 07/01/23 08:16 Freq: Status: Active Protocol: Document 07/01/23 15:00 [facility] (Rec: 07/01/23 15:23 [facility] [id number]) Current Condition History of Current Condition Current Complaints pelvic pain History of Current Condition pt was here a coupble of years ago with incontinence issues, she then had a hysterectomy due to tumors in October. November 04 was date of surgery SHe was doing good up until 10 weeks but then she started to get more pain. 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 Her daughter is 11.5 years old SHe feels very weak in her pelvic floor now and her hips feel weak. Her leakage is less now compared to before. She still doesn't trust her self and with quick steps becuase she doesn't want to leak. Now only occasional leakage when she picks up her dog. PElvic floor pain is like a 2/10 in general but if she does something like trim a hedge she has more pain PT-OP-C Subjective Start: 07/01/23 08:16 Freq: Status: Active Protocol: Document 02/10/24 08:16 [facility] (Rec: 02/10/24 09:08 [facility] [id number]) OP-PT Subjective Patient Comments Patient Comments PT NOTES SHE GARDENED FRIDAY AND THEN HAD THE DAY AT WORK WHERE SHE HAD TO WORK SITTING AL DAY. Overall she has only had the shooting pains less this week PT-OP-I Pelvic Floor Start: 07/01/23 08:16 Freq: Status: Active Protocol: Document 07/01/23 15:23 [facility] (Rec: 07/01/23 16:04 [facility] [id number]) Pelvic Floor Assessment Urine Pelvic Floor Surgery Yes: Full hysterectomy Leakage Size Small Leakage Cause Cough,Exercise,Lifting,Sneeze Leaks Per Day 1 Voiding Frequency 6+ Nocturia 1-3 xms per night Pelvic Clock Pelvic Clock 12-3 Atrophy Pelvic Clock 3-6 Guarding,Tenderness Pelvic Clock Other left sided pelvic floor guarding , scar tissue noted at the perineum with tightness on the left side, tightness into the left transverse perienum that reproduces pain when palpated Perineal Descent Resting Present Contraction Ability Voluntary Contraction Weak Voluntary Relaxation Weak Manual Muscle Testing Left 0 Manual Muscle Testing Right 2 Manual Muscle Testing Anterior 1 Manual Muscle Testing Posterior 2 Comments Pelvic Floor Comments Left side lateral wall of the pelvic floor is guarded at rest and pt has difficulty both with contraction as well as relazation on the left lateral wall. No palpable contraction noted on the left lateral wall with today's exam PT-OP-J Posture/Palpation/Skin Start: 07/01/23 08:16 Freq: Status: Active Protocol: Document 07/01/23 15:00 [facility] (Rec: 07/02/23 13:21 [facility] [id number]) Palpation Assessment Location abdominal wall Palpation Findings Soft Tissue Tightness Palpation Details palpation over the abdominal wall reveals soft tissue tightness and distension on the belly, little to know scar tissue present to palpation over the laproscopy incisions of hysterectomy PT-OP-M Strength Start: 07/01/23 08:16 Freq: Status: Active Protocol: Document 07/01/23 15:00 [facility] (Rec: 07/02/23 13:22 [facility] [id number]) Trunk Strength Trunk Manual Muscle Testing Testing Position Supine Flexion 3 Fair Core Stabilization decreased ability to contract and sustain a contraction of the transverse abdominal wall in supine PT-OP-Q Treatments Start: 07/01/23 08:16 Freq: Status: Active Protocol: Document 02/10/24 08:16 [facility] (Rec: 02/10/24 09:08 [facility] [id number]) Manual Therapy Treatment Soft Tissue Mobilization right side ITB release Mobilization Type Myofascial Release Body Position Prone release of the medial hamstrings B and gluteal attachments to the ischium Mobilization Type Myofascial Release Intensity/Depth Moderate Comments left greater than right sided medial hamstring tightness at the proximal attachment to the ischium Manual Techniques manual quad stretch Type prone quad stretch Comments right greater than left sided tightness today manual hip IR stretch Reps/Duration hold 1 min each side Self-Care/Home Management Treatment Education Patient Education Home Exercise Program Other Education pt educated on foam roll stretching for ITB and ITB stretch, reviewed how pt was doing with HEP and work related activities PT-OP-T Assessment and Plan Start: 07/01/23 08:16 Freq: Status: Active Protocol: Document 02/10/24 08:16 [facility] (Rec: 02/10/24 09:08 [facility] [id number]) Physical Therapy Assessment Goals 3 Impairment Urinary leakage with strong cough or sneeze or with exercise Short Term Goal (STG) Marcy is educated in a HEP for pelvic floor strengthening goal met [facility] Goal (LTG) Marcy reports a overall reduction in urinary stress incontinence symptoms Good progress LTG Duration 12 weeks 2 Impairment pelvic pain rated 3/10 and low back pain rated 6/10 [facility] Goal (LTG) With manual therapy techniques and stretches Marcy reports a reduction in pelvic pain to 1 or less and with improved core support Marcy reports a reduction in her LBP from 6/10 to 4 or less Pelvic pain has decreased with pelvic floor relaxation and Marcy has been able to increase her stride length with walking x 30 min LTG Duration 12 weeks 1 Impairment Pelvic Floor weakness Short Term Goal (STG) Marcy is educated on pelvic floor recruitment and relaxation goal met STG Duration 4 weeks 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 Marcy responded well to manual treatment today and notes she felt better following Physical Therapy Plan Frequency and Duration Frequency of Treatment 1x/Week Duration of treatment (weeks) 12 Plan of Care Start Date 12/03/23 Plan of Care End Date 02/25/24 Next Visit Focus/Plan Next Note Type Treatment Note Next Visit Plan revisit medial hamstring tightness on the left and right side ITB tightness and review stretches
--- NOTE | 2024-02-25 12:13 | PT.OTN ---
Current Diagnoses Stress incontinence (female) (male) (02/24/24) Pelvic muscle wasting (02/24/24) Pelvic and perineal pain (02/24/24) Weakness (02/24/24) Physical Therapy Treatment Note PT-OP-A Visit Information Start: 07/01/23 08:16 Freq: Status: Active Protocol: Document 02/24/24 08:15 [facility] (Rec: 02/24/24 09:01 [facility] [id number]) Out-Patient Physical Therapy Visit Information Visit Information Visit Type Treatment Note Visit Start Time 08:15 Visit Stop Time 09:00 Visit Number 13 PT-OP-B Current Condition Start: 07/01/23 08:16 Freq: Status: Active Protocol: Document 07/01/23 15:00 [facility] (Rec: 07/01/23 15:23 [facility] [id number]) Current Condition History of Current Condition Current Complaints pelvic pain History of Current Condition pt was here a coupble of years ago with incontinence issues, she then had a hysterectomy due to tumors in October. November 04 was date of surgery SHe was doing good up until 10 weeks but then she started to get more pain. 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 Her daughter is 11.5 years old SHe feels very weak in her pelvic floor now and her hips feel weak. Her leakage is less now compared to before. She still doesn't trust her self and with quick steps becuase she doesn't want to leak. Now only occasional leakage when she picks up her dog. PElvic floor pain is like a 2/10 in general but if she does something like trim a hedge she has more pain PT-OP-C Subjective Start: 07/01/23 08:16 Freq: Status: Active Protocol: Document 02/24/24 08:15 [facility] (Rec: 02/24/24 09:01 [facility] [id number]) OP-PT Subjective Patient Comments Patient Comments Marcy notes she had a injury to her thumb on the right side and cut off the tip and was in the ER. She has not done any exercises as she has been so sore. PT-OP-I Pelvic Floor Start: 07/01/23 08:16 Freq: Status: Active Protocol: Document 07/01/23 15:23 [facility] (Rec: 07/01/23 16:04 [facility] [id number]) Pelvic Floor Assessment Urine Pelvic Floor Surgery Yes: Full hysterectomy Leakage Size Small Leakage Cause Cough,Exercise,Lifting,Sneeze Leaks Per Day 1 Voiding Frequency 6+ Nocturia 1-3 xms per night Pelvic Clock Pelvic Clock 12-3 Atrophy Pelvic Clock 3-6 Guarding,Tenderness Pelvic Clock Other left sided pelvic floor guarding , scar tissue noted at the perineum with tightness on the left side, tightness into the left transverse perienum that reproduces pain when palpated Perineal Descent Resting Present Contraction Ability Voluntary Contraction Weak Voluntary Relaxation Weak Manual Muscle Testing Left 0 Manual Muscle Testing Right 2 Manual Muscle Testing Anterior 1 Manual Muscle Testing Posterior 2 Comments Pelvic Floor Comments Left side lateral wall of the pelvic floor is guarded at rest and pt has difficulty both with contraction as well as relazation on the left lateral wall. No palpable contraction noted on the left lateral wall with today's exam PT-OP-J Posture/Palpation/Skin Start: 07/01/23 08:16 Freq: Status: Active Protocol: Document 07/01/23 15:00 [facility] (Rec: 07/02/23 13:21 [facility] [id number]) Palpation Assessment Location abdominal wall Palpation Findings Soft Tissue Tightness Palpation Details palpation over the abdominal wall reveals soft tissue tightness and distension on the belly, little to know scar tissue present to palpation over the laproscopy incisions of hysterectomy PT-OP-M Strength Start: 07/01/23 08:16 Freq: Status: Active Protocol: Document 07/01/23 15:00 [facility] (Rec: 07/02/23 13:22 [facility] [id number]) Trunk Strength Trunk Manual Muscle Testing Testing Position Supine Flexion 3 Fair Core Stabilization decreased ability to contract and sustain a contraction of the transverse abdominal wall in supine PT-OP-Q Treatments Start: 07/01/23 08:16 Freq: Status: Active Protocol: Document 02/24/24 08:15 [facility] (Rec: 02/25/24 08:15 [facility] [id number]) Manual Therapy Treatment Soft Tissue Mobilization gluteal attachments to the sacrum Mobilization Type Myofascial Release Body Position Prone Comments MFR over the gluteals and sacral attachments release of the medial hamstrings B and gluteal attachments to the ischium Mobilization Type Myofascial Release Intensity/Depth Moderate Comments left greater than right sided medial hamstring tightness at the proximal attachment to the ischium PT-OP-T Assessment and Plan Start: 07/01/23 08:16 Freq: Status: Active Protocol: Document 02/24/24 08:15 [facility] (Rec: 02/25/24 08:15 [facility] [id number]) Physical Therapy Assessment Goals 3 Impairment Urinary leakage with strong cough or sneeze or with exercise Short Term Goal (STG) Marcy is educated in a HEP for pelvic floor strengthening goal met Performance Test Consultant Goal (LTG) Marcy reports a overall reduction in urinary stress incontinence symptoms Good progress LTG Duration 12 weeks 2 Impairment pelvic pain rated 3/10 and low back pain rated 6/10 Performance Test Consultant Goal (LTG) With manual therapy techniques and stretches Marcy reports a reduction in pelvic pain to 1 or less and with improved core support Marcy reports a reduction in her LBP from 6/10 to 4 or less Pelvic pain has decreased with pelvic floor relaxation and Marcy has been able to increase her stride length with walking x 30 min LTG Duration 12 weeks 1 Impairment Pelvic Floor weakness Short Term Goal (STG) Marcy is educated on pelvic floor recruitment and relaxation goal met STG Duration 4 weeks Performance Test Consultant Goal (LTG) Marcy shows a increase in pelvic floor strength for improved support of her bladder by at least 1 muscle grade pt is showing progress with pelvic floor endurance and she is now working on pelvic floor recruitment in standing LTG Duration 12 weeks Assessment Summary Assessment Today was Marcy's last scheduled visit in PT. She is independent with her home program at this time. She had a injury this past week that required the ER due to cutting off the tip of her thumb and wasn't able to do all exercises but she knows them and will continue working on both strength of pelvic floor as well as her stretches. Physical Therapy Plan Discharge Physical Therapy Discharge Reasons Plateau in Progress Discharge Comments pt is independent with her HEP
== END 2024-02-26 10:46 ==
LOC: PHYS 08:15
PROVIDERS: Family Provider Family Medicine; PCP Family Medicine; Referring Provider Obstetrics & Gynecology; Visit Provider Obstetrics & Gynecology
DX: R10.2 Pelvic and perineal pain (principal); N81.84 Pelvic muscle wasting; N39.3 Stress incontinence (female) (male); R53.1 Weakness
CPT/HCPCS: 97110; 97112; 97140; 97161; 97535

== ENCOUNTER 2025-03-11 09:25 | Day surgery (SDC) | payer OTHER, SELFPAY ==
[2025-03-11 10:05] VITALS: BP 146/90; PULSE 92; RESP 20; TEMP 36.2; O2SAT 96
[2025-03-11] MEDS: LACTATED RINGERS 1,000 ML 42 ML IV (10:09)
--- NOTE | 2025-03-11 10:14 | PM.HP.IH.1 ---
History of Present Illness History of Present Illness Date Patient Seen: 03/11/25 Chief complaint: Screening Colonoscopy Narrative: 44-year-old obese female with a strong family history of colon cancer presents for colonoscopic screening. [facility] Social History Smoking Status: Never smoker Meds Home Medications and Allergies Home Medications Medication Instructions Recorded Confirmed Type methylphenidate HCl 54 mg 54 mg PO QDAY ##0 03/03/17 12/15/20 History tablet,extended release 24 hr hydrochlorothiazide 12.5 mg tablet 12.5 mg PO DAILY 12/15/20 03/11/25 History losartan 25 mg tablet 25 mg PO DAILY 12/15/20 12/15/20 History sertraline 100 mg tablet 100 mg PO DAILY 12/15/20 03/11/25 History norethindrone (contraceptive) 0.35 See Rx Instructions .Route 11/07/22 Rx mg tablet .COMPLEX #28 tabs Allergies Allergy/AdvReac Type Severity Reaction Status Date / Time Sulfa (Sulfonamide Allergy Unknown Verified 03/11/25 09:58 Antibiotics) [SULFA (SULFONAMIDE ANTIBIOTICS)] Review of Systems Review of Systems Narrative: Comprehensive review of systems negative to direct questioning with the exception of the previously mentioned chronic conditions. Exam Vital Signs (past 8 hours): - 03/11/25 10:05 Temperature 97.1 F L Pulse Rate 92 H Respiratory Rate 20 Blood Pressure 146/90 H Pulse Oximetry 96 Oxygen Delivery Method Room Air Oxygen Delivery Method Room Air Narrative Exam Narrative: In general this is a well-nourished well-developed female alert and oriented x3 in no acute distress. Lungs are clear to auscultation. Heart has a regular rate and rhythm with no murmur or gallop. Abdomen is soft and nontender with normal bowel sounds. Assessment & Plan Assessment and plan (1) Family history of colon cancer: Status: Acute Plan I have recommended colonoscopy with biopsy if necessary. Alternatives, risks and benefits were discussed in detail. Patient voices understanding and desires to proceed as I have outlined. Time-Based Coding :: [TOTAL MINUTES] spent with patient and on the chart (including review of chart, obtaining history, exam, reviewing outside data, placing orders, documenting exam and treatment plan, and counseling patient) on [DATE]. PROFEE Parole Supervisor Document charge(s): Yes
[2025-03-11 10:37] VITALS: BP 139/77; PULSE 78; RESP 16; TEMP 36.3; O2SAT 97
--- NOTE | 2025-03-11 10:37 | PM.OP.COLON ---
Operative Date/Time/Diagnoses Date of procedure: 03/11/25 Time of procedure: 10:19 Pre-op diagnosis: Family history of colon cancer Post-op diagnosis: same Procedure & Clinicians Study performed: Colonoscopy Same procedure as scheduled: Yes Indications: Family history of colon cancer Surgeon: Rajiv Henning Procedure Notes Procedure in detail: Patient was brought to the endo suite and was placed on the table in the left lateral decubitus position. A 2 m flexible fiberoptic colonoscope was passed transanally under direct endoscopic vision and around to the cecum. Prep was adequate. Exam was performed retrograde. No mucosal abnormalities were identified in the cecum or ascending colon. The hepatic flexure transverse colon and splenic flexures were similarly without evidence of mucosal abnormality. Descending colon was without evidence of polyp AVM or ulceration. Sigmoid colon was heavily muscled and tortuous but there were no mucosal abnormalities. Rectum was normal as the scope was withdrawn. Patient tolerated the procedure well and was transported to PACU in good condition Scope withdrawal time: 1035 Specimen(s): none sent Complications: none Impression: Normal colon Post-procedure Recommendations: Colonoscopy in 3 years Plan for aftercare: Discharged home when awake and alert Follow up: as needed Disposition: PACU
[2025-03-11 10:42] VITALS: BP 136/84; PULSE 81; RESP 19; O2SAT 95
[2025-03-11 10:50] VITALS: BP 122/79; PULSE 78; RESP 18; TEMP 36.3; O2SAT 99
== END 2025-03-11 11:02 | disposition home or self-care (01) ==
PROVIDERS: Family Provider Family Medicine; PCP Family Medicine; Referring Provider Surgery; Visit Provider Surgery
PROC: 0DJD8ZZ Inspection of Lower Intestinal Tract, Via Natural or Artificial Opening Endoscopic (ICD-10-PCS; CPT 45378; principal; 2025-03-11 10:45)
DX: Z12.11 Encounter for screening for malignant neoplasm of colon (principal); Z80.0 Family history of malignant neoplasm of digestive organs
CPT/HCPCS: 45378; J2704